=== PATIENT | female | born 1985 | race Caucasian/White ===

== ENCOUNTER 2021-05-28 13:04 | Outpatient (CLI) | payer MEDICAID, SELFPAY ==
[2021-05-28 10:52] LABS: Amphetamine Urine VISTA NEGATIVE (<1000 ng/mL); Barbiturate Urine VISTA NEGATIVE (< 200 ng/mL); Benzodiazepine Urine VISTA NEGATIVE (< 200 ng/mL); Cocaine Urine VISTA NEGATIVE (< 300 ng/mL); Ecstacy Urine VISTA NEGATIVE (< 500 ng/mL); Methadone Urine VISTA NEGATIVE (< 300 ng/mL); PCP Urine VISTA NEGATIVE (< 25 ng/mL); THC Urine VISTA NEGATIVE (< 50 ng/mL); Vista UDS pH Range 5
[2021-05-30 21:07] LABS: Chlamydia By Nucleic Acid AMP Negative (Negative)
[2021-05-30 21:29] LABS: Gonococcus By Nucleic Acid AMP Negative (Negative)
[2021-06-04 17:20] LABS: HPV Reflexed? NOT INDICATED
== END 2021-05-28 23:59 | disposition home or self-care (01) ==
LOC: LABSPEC 13:05
PROVIDERS: Referring Provider Obstetrics & Gynecology; Visit Provider Obstetrics & Gynecology
DX: Z34.80 Encounter for supervision of other normal pregnancy, unspecified trimester (principal); Z12.4 Encounter for screening for malignant neoplasm of cervix
CPT/HCPCS: 80307; 87086; 87088; 87491; 87591; 88175; G0145

== ENCOUNTER 2021-06-17 15:26 | Outpatient (CLI) | payer MEDICAID, SELFPAY ==
[2021-06-17 15:47] LABS: Absolute Lymphocyte Count 1.89 X10^3/uL (0.83-4.51); Absolute Neutrophil Count 9.1 X10^3/uL (2.0-7.7); Basophil# 0.02 X10^3/uL; Basophil% 0.2 % (0-1); Eosinophil# 0.21 X10^3/uL; Eosinophils% 1.8 % (0-5); Hematocrit 38.6 % (37-47); Hemoglobin 13.1 g/dL (12.0-15.0); Lymphocyte # 1.89 X10^3/ul (0.83-4.51); Lymphocyte % 15.8 % (19-41); Mean Corp Hgb Conc 33.9 g/dL (32-36); Mean Corpuscular Hgb 31.4 pg (27.0-32.0); Mean Corpuscular Volume 92.6 fL (81-99); Mean Platelet Vol. 9.4 fl (6.2-12.0); Monocyte# 0.68 X10^3/uL; Monocyte% 5.7 % (0-10); NRBC Flagged by Analyzer 0 % (0-5); Neutrophil # 9.14 X10^3/uL (2.7-7.7); Neutrophil % 76.2 % (47-70); Platelet Count 278 K/mm3 (150-450); RBC Distribution Width CV 12.7 % (11.6-14.6); RBC Distribution Width SD 43.5 fl (35.1-43.9); Red Blood Count 4.17 M/mm3 (4.2-5.4)
[2021-06-17 16:40] LABS: NATERA MAILED SPECIMEN
[2021-06-18 09:34] LABS: HIV - WCH Non-Reactive (Nonreactive); Hepatitis B Surface Antigen Non-Reactive (Nonreactive); Hepatitis C Antibody Non-Reactive (Nonreactive); Rubella IgG Reactive (Nonreactive); Syphilis Antibodies Non-reactive
== END 2021-06-17 23:59 | disposition home or self-care (01) ==
LOC: PAVLAB 15:28
PROVIDERS: Referring Provider Obstetrics & Gynecology; Visit Provider Obstetrics & Gynecology
DX: O09.521 Supervision of elderly multigravida, first trimester (principal); Z3A.00 Weeks of gestation of pregnancy not specified
CPT/HCPCS: 36415; 85025; 86703; 86762; 86780; 86803; 86850; 86900; 86901; 87340

== ENCOUNTER → 2021-10-14 | Outpatient (CLI) | payer MEDICAID, SELFPAY ==
[2021-10-14 12:56] LABS: Basophil# 0.03 X10^3/uL; Basophil% 0.3 % (0-1); Eosinophil# 0.12 X10^3/uL; Eosinophils% 1.1 % (0-5); Hematocrit 35.3 % (37-47); Hemoglobin 11.5 g/dL (12.0-15.0); Lymphocyte % 12.5 % (19-41); Mean Corp Hgb Conc 32.6 g/dL (32-36); Mean Corpuscular Hgb 31.3 pg (27.0-32.0); Mean Corpuscular Volume 95.9 fL (81-99); Mean Platelet Vol. 9.6 fl (6.2-12.0); Monocyte# 0.58 X10^3/uL; Monocyte% 5.2 % (0-10); NRBC Flagged by Analyzer 0 % (0-5); Neutrophil # 8.95 X10^3/uL (2.7-7.7); Neutrophil % 79.7 % (47-70); Platelet Count 223 K/mm3 (150-450); RBC Distribution Width CV 13.2 % (11.6-14.6); RBC Distribution Width SD 46.8 fl (35.1-43.9); Red Blood Count 3.68 M/mm3 (4.2-5.4); White Blood Count 11.2 K/mm3 (4.4-11.0)
[2021-10-14 13:13] LABS: Glucose Challenge Gest 1H 50g 148 mg/dL (70-140)
== END | disposition home or self-care (01) ==
LOC: LAB 12:27
PROVIDERS: Referring Provider Obstetrics & Gynecology; Visit Provider Obstetrics & Gynecology
DX: O09.90 Supervision of high risk pregnancy, unspecified, unspecified trimester (principal); Z3A.00 Weeks of gestation of pregnancy not specified
CPT/HCPCS: 36415; 82950; 85025

== ENCOUNTER → 2021-10-29 | Outpatient (CLI) | payer MEDICAID, SELFPAY ==
[2021-10-29 08:22] LABS: Glucose GTT-Gestation. Fasting 92 mg/dL (<105)
[2021-10-29 08:58] LABS: Glucose GTT-Gestational 1 Hr 208 mg/dL (<190)
[2021-10-29 10:02] LABS: Glucose GTT-Gestational 2 Hr 171 mg/dL (<165)
[2021-10-29 11:26] LABS: Glucose GTT-Gestational 3 Hr 99 L (<145)
== END | disposition home or self-care (01) ==
LOC: LAB 07:21
PROVIDERS: Visit Provider Nurse Practitioner Women's Health
DX: Z13.1 Encounter for screening for diabetes mellitus (principal)
CPT/HCPCS: 36415; 82951; 82952

== ENCOUNTER 2021-11-12 09:35 | Outpatient (RCR) | payer MEDICAID, SELFPAY | END 2021-11-12 23:59 | LOC: DC 09:35 | PROVIDERS: Referring Provider Nurse Practitioner Women's Health; Visit Provider Nurse Practitioner Women's Health | DX: O24.419 Gestational diabetes mellitus in pregnancy, unspecified control (principal); Z3A.00 Weeks of gestation of pregnancy not specified | CPT/HCPCS: 97802 ==

== ENCOUNTER 2021-12-04 14:30 | Outpatient (RCR) | payer MEDICAID, SELFPAY | END 2021-12-12 23:59 | LOC: DC 14:30 | PROVIDERS: Referring Provider Nurse Practitioner Women's Health; Visit Provider Nurse Practitioner Women's Health | DX: O24.419 Gestational diabetes mellitus in pregnancy, unspecified control (principal); Z3A.00 Weeks of gestation of pregnancy not specified | CPT/HCPCS: 97803 ==

== ENCOUNTER → 2021-12-08 | Outpatient (CLI) | payer MEDICAID, SELFPAY ==
--- NOTE | 2021-12-08 10:03 | US_ITS ---
STUDY: SECOND AND THIRD TRIMESTER OBSTETRICAL ULTRASOUND - LIMITED REASON FOR EXAM: Female, 36 years old. growth PRIOR ULTRASOUND: Prior comparison studies are not available for review at this time. TECHNIQUE: Transabdominal TECHNICAL QUALITY: Adequate. FINDINGS: There is a single intrauterine fetus. The fetus is in a cephalic presentation. There is demonstrated cardiac activity with a heart rate of 147 bpm. There is a normal amniotic fluid volume. The largest amniotic fluid pocket measures 5.2 cm. The amniotic fluid index (KERRI) is 13.1 cm. The placenta is fundal in location. There are Grade 2 placental changes. The cervix is obscured by overlying bowel gas and cannot be identified. . BIOMETRY: BPD: 93 mm: 37 weeks, 5 days HC: 335 mm: 38 weeks, 3 days AC: 326 mm: 36 weeks, 4 days FL: 70 mm: 35 weeks, 5 days CI: 80 FL/AC: 21 FL/BPD: 75 HC/AC: 1.03 age by current US: 37 weeks, 1 days. LELA by current US: 12.28.21. Estimated weight: 2996 grams, +/- 449 grams, 66 %. Age by LMP: 36 weeks, 1 days. LELA by LMP: 01.04.22. US/OB Limited With Biometrics IMPRESSION: There is a single live intrauterine with a heart rate of 147 bpm. age by current US: 37 weeks, 1 days. LELA by current US: 12.28.21. Estimated weight: 2996 grams, +/- 449 grams, 66 %. Electronically Signed: Jerry Del Valle MD at 17:09 EDT ,
== END | disposition home or self-care (01) ==
LOC: US 10:02
PROVIDERS: Referring Provider Obstetrics & Gynecology; Visit Provider Obstetrics & Gynecology
DX: O09.523 Supervision of elderly multigravida, third trimester (principal); Z3A.37 37 weeks gestation of pregnancy
CPT/HCPCS: 76816

== ENCOUNTER → 2021-12-11 | Outpatient (CLI) | payer MEDICAID, SELFPAY | END | disposition home or self-care (01) | LOC: LABSPEC 13:38 | PROVIDERS: Referring Provider Obstetrics & Gynecology; Visit Provider Obstetrics & Gynecology | DX: Z36.85 Encounter for antenatal screening for Streptococcus B (principal) | CPT/HCPCS: 87081 ==

== ENCOUNTER 2021-12-29 09:15 | Inpatient (IN) | payer MEDICAID, SELFPAY ==
[2021-12-29] VITALS (53 sets, daily range): BP systolic 102–147; BP diastolic 55–93; PULSE 69–99; TEMP 36.1–37.2; O2SAT 84–100; BMI 31.0
[2021-12-29] MEDS: Lactated Ringers 1,000 ML 50 ML IV (09:38)
[2021-12-29 09:56] LABS: Absolute Lymphocyte Count 0.81 X10^3/uL (0.83-4.51); Absolute Neutrophil Count 8.6 X10^3/uL (2.0-7.7); Basophil# 0.02 X10^3/uL; Basophil% 0.2 % (0-1); Eosinophil# 0.04 X10^3/uL; Eosinophils% 0.4 % (0-5); Hematocrit 37.7 % (37-47); Hemoglobin 12.2 g/dL (12.0-15.0); Lymphocyte # 0.81 X10^3/ul (0.83-4.51); Lymphocyte % 8.1 % (19-41); Mean Corp Hgb Conc 32.4 g/dL (32-36); Mean Corpuscular Volume 92.6 fL (81-99); Mean Platelet Vol. 10.6 fl (6.2-12.0); NRBC Flagged by Analyzer 0 % (0-5); Neutrophil # 8.62 X10^3/uL (2.7-7.7); Neutrophil % 85.6 % (47-70); Platelet Count 193 K/mm3 (150-450); RBC Distribution Width SD 51.1 fl (35.1-43.9); Red Blood Count 4.07 M/mm3 (4.2-5.4); White Blood Count 10.1 K/mm3 (4.4-11.0)
[2021-12-29] MEDS: Oxytocin 15 Units/NS 250ml 15 UNITS/250 ML IV.SOLN 2 UNITS IV (10:13)
[2021-12-29 11:05] LABS: Bedside Glucose 98 mg/dL (74-106)
[2021-12-29 12:06] LABS: Bedside Glucose 92 mg/dL (74-106)
[2021-12-29] MEDS: LACTATED RINGERS 500 ML 999 ML IV (13:17)
[2021-12-29] MEDS: fentaNYL-bupivacaine (epidural) 100 ML BAG EPIDURAL (13:55)
[2021-12-29 14:51] LABS: Bedside Glucose 106 mg/dL (74-106)
[2021-12-29] MEDS: Lactated Ringers 1,000 ML 200 ML IV (15:09)
--- NOTE | 2021-12-29 15:14 | OP.PCM_ITS ---
Assessment & Plan (1) Gestational diabetes: COMMENT: diet controlled. weekly NSTs until delivery due to AMA and GDM. (2) Vaginal delivery: COMMENT: SM 39 IOL GDMA1 ama girl [place] Maternal Data Information LELA Calculator Estimated Delivery Date Method Current WG Current Estimate 01/04/22 LMP (Certain) 39w 2d Other Estimates 01/07/22 Ultrasound #1 38w 6d Vaginal Delivery Operative Information Date of Procedure: 12/29/21 Pre-Operative Diagnosis: IOL Gdma1 ama Post-Operative Diagnosis: same Surgery / Procedure Performed: Spontaneous Vaginal Delivery Type of Anesthesia: Epidural Special Medications: none Estimated Blood Loss: 200 Fluids Replaced: crystalloid Findings Description of Procedure: Patient began pushing and delivered the head in the JANIA presentation. The head was delivered atraumatically and a loose nuchal cord ?1 was identified and the delivered through without complication. The anterior and posterior shoulders delivered without complication followed by the rest of the and the was placed on the maternal abdomen. Delayed cord clamping was employed for approximately 60 seconds. Cord was clamped and cut and gentle traction was applied to the cord and the placenta delivered spontaneously immediately following it was noted to be intact with three-vessel cord. The perineum and vagina were inspected and noted to have no laceration. EBL was 200 cc. Patient and tolerated delivery well. Presentation: JANIA Amniotic Membrane Rupture Type: Artificial Amniotic Fluid Description: Clear Placental Delivery Description: Spontaneous Placenta Disposition: [facility] Cord Vessel Description: 3 Vessels Cord Entanglement: Around neck x 1, loose Infant A Gender: Female Delayed Cord Clamping: Yes Post Vaginal Delivery Medications Given After Delivery: IV Pitocin Episiotomy Description: None Laceration: None Complication Complications: None Procedures Urinary/Genital [id number]: [id number] Vaginal Delivery+PP Care([facility])
[2021-12-29 17:40] LABS: Bedside Glucose 91 mg/dL (74-106)
[2021-12-29 17:40] LABS: Bedside Glucose 108 mg/dL (74-106)
[2021-12-29 18:36] LABS: Bedside Glucose 94 mg/dL (74-106)
[2021-12-30 00:45] VITALS: BP 109/63; PULSE 84; RESP 18; TEMP 36.2
[2021-12-30] MEDS: Naproxen 500 MG Tablet PO (00:48)
[2021-12-30] MEDS: Senna/Docusate Sodium 1 Tablet PO (00:48)
[2021-12-30 05:51] VITALS: BP 99/57; PULSE 60; RESP 14; TEMP 36.1
[2021-12-30 06:45] LABS: Bedside Glucose 100 mg/dL (74-106)
--- NOTE | 2021-12-30 07:49 | HP.PCM.OB_ITS ---
HPI - General General Date of Admission: 12/29/21 HPI Narrative GARRETT RUSH, is a 36 F who presents for IOL sec AMA and [id number] Maternal Data Information LELA Calculator Estimated Delivery Date Method Current WG Current Estimate 01/04/22 LMP (Certain) 39w 2d Other Estimates 01/07/22 Ultrasound #1 38w 6d PFSH PFSH Medical History (Updated 12/30/21 @ 07:[address] Patricia Camarillo MD) History of PCOS Infertility macrosomia Home Medications prenat.vits,khang,[id number] 1 tab PO DAILY 05/27/21 [History Last Taken 12/29/21] blood sugar diagnostic (True Metrix Glucose Test Strip) #100 ea 10/29/21 [Rx Last Taken Unknown] blood-glucose meter (True Metrix Air Glucose Meter) #1 ea 10/29/21 [Rx Last Taken Unknown] Allergy/AdvReac Type Severity Reaction Status Date / Time No Known Allergies Allergy Verified 12/29/21 09:37 Social History adopted: No household members: spouse and children number of children: 1 current occupational status: unemployed current occupation: [employer]; 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 Date Name GA/Weeks Outcome Route Bth Weight Gen Labor Lgth Anes thes ia Del Locatn Provider FOB Unknown Mar 2020 spontaneous 08/07/16 Esther live - full term 10#5oz Female 8 hr non e Zina Hasmukh Delivery Date: Last Updated by: Brianna Salgado GIS ANALYST, GIS ANALYST-C no intervention Delivery Date: 08/07/16 Last Updated by: Brianna Salgado NP, GIS ANALYST-C IOL, nonreactive NST. Visit Details Expected Delivery Route/Plan plan delivery by 39-40 Labor Preferences- CB/BF classes: no labor support person: Hasmukh labor intervention preferences: [] pain management options preferred: open to epidural cut cord/dad catch: yes : yes PP control planned: discussed discussed possible routes of delivery and associated risks: [] special requests: [] Plans Covid status: unvaccinated Flu vaccine: unvaccinated Tdap vaccine: declines Rhogam: na LARC form signed: yes movement and labor precautions reviewed. Problem list reviewed and updated with the most current plan of care details and appropriate orders placed. Relevant counseling for the gestational age provided. Continue routine care and follow up unless otherwise noted in visit notes/problem list details OB Flowsheet Initial Weight: Not Recorded Date -?-?-?-?-?-?-?-?-?-?-?-?- EGA Weight BP Urine Prot -?-?-?-?-?-?-?-?-?-?-?-?- Glucose FHR FuHt Pres Dilation -?-?-?-?-?-?-?-?-?-?-?-?- Effaced St Visit Note 05/28/21 -?-?-?-?-?--?-?-?-?-?-?-?- 8w 3d 200 lb 4 oz 128/88 -?-?-?-?-?-?-?-?-?-?-?-?- 147 -?-?-?-?-?-?-?-?-?-?-?-?- JV- CRL consiste nt with LMP. pt had a miscarrage at 7-8 weeks last year. return in 1-2 weeks for reassurance of heart tones. 06/17/21 -?-?-?-?-?-?-?-?-?-?-?-?- 11w 2d 204 lb 2 oz 120/82 Nega tive -?-?-?-?-?--?-?-?-?-?-?-?- Negative -?-?-?-?-?-?-?-?-?-?-?-?- JV- pt declined heart tone exam today. She was counseled on NIPT testing and wants to proceed. wants to wait until is here to do another scan of the heart tones. 06/30/21 -?-?-?-?-?-?-?-?-?-?-?-?- 13w 1d 202 lb 126/80 Negative -?-?-?-?-?-?-?-?-?-?-?-?- Negative 165 -?-?-?-?-?-?-?-?-?-?-?-?- SM- some crampin g no vb 07/30/21 -?-?-?-?-?-?-?-?-?-?-?-?- 17w 3d 206 lb 108/60 Negative -?-?-?--?-?-?-?-?-?-?-?-?- Negative 162 -?-?-?-?-?-?-?-?-?-?-?-?- MH-No VB. ?flutt ers. Order sent for anatomy US. LR NIPT 08/25/21 -?-?-?-?-?-?-?-?-?-?-?-?- 21w 1d 211 lb 120/80 Negative -?-?-?-?-?-?-?-?-?-?-?-?- Negative 150 -?-?-?-?-?-?-?-?-?-?-?-?- SM- no vb lof go od fm no regular ctx needs fu views heart and spine will gt at hospital due to insurance coverage 09/22/21 -?-?-?-?-?-?-?-?-?-?-?-?- 25w 1d 220 lb 8 oz 108/71 Nega tive -?-?-?-?-?-?-?-?-?-?-?-?- Negative 145 25 -?-?-?-?-?-?-?-?-?-?-?-?- SM- no vb lof go od fm no regular ctx 10/14/21 -?-?-?-?-?-?-?-?-?-?-?-?- 28w 2d 224 lb 8 oz 126/62 Nega tive -?-?-?-?-?-?-?-?-?-?-?-?- Negative 153 28 -?-?-?-?-?-?-?-?-?-?-?-?- MH-No VB, LOF. G ood FM. 28 wk labs-needs 3 hr GTT. Ordered 36 wk growth US and will check spine at that time. Declines tdap. Larc. 10/27/21 -?-?-?-?-?-?-?-?-?-?-?-?- 30w 1d 227 lb 120/80 Negative -?-?-?-?-?-?-?-?-?-?-?-?- Negative 145 30 -?-?-?-?-?-?-?-?-?-?-?-?- SM- no vb lof go od fm n oregular ctx 3 hr scheduled declined tdap 11/13/21 -?-?-?-?-?-?-?-?-?-?-?-?- 32w 4d 226 lb 2 oz 100/62 Nega tive -?-?-?-?-?-?-?-?-?-?-?-?- Negative 144 32 -?-?-?-?-?-?-?-?-?-?-?-?- JV- no lof, vagi nal bleeding, or dec fm. fasting gluocse levels are 80's-90's. following with Dr. Tim. diet controlled DM for now. 11/28/21 -?-?-?-?-?-?-?-?-?-?-?-?- 34w 5d 224 lb 97/61 Negative -?-?-?-?-?-?-?-?-?--?-?-?- Negative 150 34 Cephalic -?-?-?-?-?-?-?-?-?-?-?-?- JV- still diet c ontrolled, no complaints. 36 week growth ordered. 12/11/21 -?-?-?--?-?-?-?-?-?-?-?-?- 36w 4d 224 lb 112/72 Negative -?-?-?-?-?-?-?-?-?-?-?-?- Negative 165 37 Cephalic -?-?-?-?-?-?-?-?-?-?-?-?- SM- no vb lof go od fm no regualr ctx discussed increased testing. BS controlled with diet. reviewed growth US 12/19/21 -?-?-?-?-?-?-?-?-?-?-?-?- 37w 5d 225 lb 8 oz 107/71 Nega tive -?-?-?-?-?-?-?-?-?-?-?-?- Negative 148 38 Cephalic 4 -?-?-?-?-?-?-?-?-?-?-?-?- 80 -2 JV-membran es stripped glucose normal. NST today for AMA and diet contr olled dm 12/25/21 -?-?-?-?-?-?-?-?-?-?-?-?- 38w 4d 227 lb 6 oz 122/70 Nega tive -?-?-?-?-?-?-?-?-?-?-?-?- Negative 150 39 Cephalic 4 5 -?-?-?-?-?-?-?-?-?-?-?-?- 80 -1 MH-reactiv e NST. No reg CTX, VB, LOF. Membranes stripped. Consult SM:IOL 12/2912/29/21 -?-?-?-?-?-?-?-?-?-?-?-?- 39w 1d 229 lb 147/83 123/71 117/73 118/61 121/68 119/69 111/58 144/93 102/55 112/58 112/64 105/56 102/56 104/55 107/60 105/60 135/72 128/68 129/60 136/79 133/58 129/62 117/57 116/59 117/68 -?-?-?-?-?-?-?-?-?-?-?-?- -?-?-?-?-?-?-?-?-?-?-?-?- NST FHR Rate Baby A Baseline: 130 Variability:: Moderate Accelerations:: 15 x 15 Decelerations:: None NST Reactive:: Yes FHR Category:: Category I Uterine Activity:: irregular ROS Constitutional Constitutional: Reports systems reviewed and no addt'l complaints, except as documented Eyes Eyes: Denies change in vision ENT HEENT: Reports systems reviewed and no addt'l complaints, except as documented; Denies headache(s) Cardiovascular Cardiovascular: Reports systems reviewed and no addt'l complaints, except as documented; Denies chest pain or dyspnea Respiratory/Chest Respiratory/Chest: Reports systems reviewed and no addt'l complaints, except as documented Gastrointestinal Gastrointestinal: Reports systems reviewed and no addt'l complaints, except as documented; Denies abdominal pain Genitourinary Genitourinary: Reports systems reviewed and no addt'l complaints, except as documented, contractions Details: present (irregular) and movement Details: present; Denies dysuria or genital lesions Musculoskeletal Musculoskeletal: Reports systems reviewed and no addt'l complaints, except as documented Neurologic Neurologic: Reports systems reviewed and no addt'l complaints, except as documented Endocrine Endocrinology: Reports systems reviewed and no addt'l complaints, except as documented Vital Signs Vital Signs Vital Signs: 12/29/21 09:31 12/29/21 09:31 12/29/21 09:31 Temperature Temperature Source Tympanic Pulse Rate 85 Respiratory Rate Blood Pressure 147/83 H Blood Pressure [BP] Blood Pressure Mean [BP] BP Systolic 147 BP Diastolic 83 Blood Pressure Source [BP] Blood Pressure Position [BP] Blood Pressure Location [BP] Pulse Ox Oxygen Delivery Method 12/29/21 09:31 12/29/21 10:17 12/29/21 10:17 Temperature 97.1 F L Temperature Source Pulse Rate 83 Respiratory Rate Blood Pressure 123/71 H Blood Pressure [BP] Blood Pressure Mean [BP] BP Systolic 123 BP Diastolic 71 Blood Pressure Source [BP] Blood Pressure Position [BP] Blood Pressure Location [BP] Pulse Ox Oxygen Delivery Method 12/29/21 11:00 12/29/21 11:00 12/29/21 13:00 Temperature Temperature Source Pulse Rate 86 Respiratory Rate Blood Pressure 117/73 118/61 Blood Pressure [BP] Blood Pressure Mean [BP] BP Systolic 117 118 BP Diastolic 73 61 Blood Pressure Source [BP] Blood Pressure Position [BP] Blood Pressure Location [BP] Pulse Ox Oxygen Delivery Method 12/29/21 13:00 12/29/21 13:00 12/29/21 13:00 Temperature 97.0 F L Temperature Source Tympanic Pulse Rate 70 Respiratory Rate Blood Pressure Blood Pressure [BP] Blood Pressure Mean [BP] BP Systolic BP Diastolic Blood Pressure Source [BP] Blood Pressure Position [BP] Blood Pressure Location [BP] Pulse Ox Oxygen Delivery Method 12/29/21 13:49 12/29/21 13:49 12/29/21 13:48 Temperature Temperature Source Pulse Rate 74 Respiratory Rate Blood Pressure 121/68 H Blood Pressure [BP] Blood Pressure Mean [BP] BP Systolic 121 BP Diastolic 68 Blood Pressure Source [BP] Blood Pressure Position [BP] Blood Pressure Location [BP] Pulse Ox 100 Oxygen Delivery Method 12/29/21 13:53 12/29/21 13:53 12/29/21 13:56 Temperature Temperature Source Pulse Rate 76 Respiratory Rate Blood Pressure 119/69 111/58 L Blood Pressure [BP] Blood Pressure Mean [BP] BP Systolic 119 111 BP Diastolic 69 58 Blood Pressure Source [BP] Blood Pressure Position [BP] Blood Pressure Location [BP] Pulse Ox Oxygen Delivery Method 12/29/21 13:56 12/29/21 14:00 12/29/21 14:00 Temperature Temperature Source Pulse Rate 73 88 Respiratory Rate Blood Pressure 144/93 H Blood Pressure [BP] Blood Pressure Mean [BP] BP Systolic 144 BP Diastolic 93 Blood Pressure Source [BP] Blood Pressure Position [BP] Blood Pressure Location [BP] Pulse Ox Oxygen Delivery Method 12/29/21 14:03 12/29/21 14:03 12/29/21 14:05 Temperature Temperature Source Pulse Rate 80 Respiratory Rate Blood Pressure 102/55 L Blood Pressure [BP] Blood Pressure Mean [BP] BP Systolic 102 BP Diastolic 55 Blood Pressure Source [BP] Blood Pressure Position [BP] Blood Pressure Location [BP] Pulse Ox 99 Oxygen Delivery Method 12/29/21 14:05 12/29/21 14:06 12/29/21 14:06 Temperature Temperature Source Pulse Rate 77 72 Respiratory Rate Blood Pressure Blood Pressure [BP] Blood Pressure Mean [BP] BP Systolic BP Diastolic Blood Pressure Source [BP] Blood Pressure Position [BP] Blood Pressure Location [BP] Pulse Ox 84 Oxygen Delivery Method 12/29/21 14:08 12/29/21 14:08 12/29/21 14:08 Temperature Temperature Source Pulse Rate 76 Respiratory Rate Blood Pressure 112/58 L Blood Pressure [BP] Blood Pressure Mean [BP] BP Systolic 112 BP Diastolic 58 Blood Pressure Source [BP] Blood Pressure Position [BP] Blood Pressure Location [BP] Pulse Ox 100 Oxygen Delivery Method 12/29/21 14:13 12/29/21 14:13 12/29/21 14:13 Temperature Temperature Source Pulse Rate 79 Respiratory Rate Blood Pressure 112/64 Blood Pressure [BP] Blood Pressure Mean [BP] BP Systolic 112 BP Diastolic 64 Blood Pressure Source [BP] Blood Pressure Position [BP] Blood Pressure Location [BP] Pulse Ox 98 Oxygen Delivery Method 12/29/21 14:18 12/29/21 14:18 12/29/21 14:18 Temperature Temperature Source Pulse Rate 77 Respiratory Rate Blood Pressure 105/56 L Blood Pressure [BP] Blood Pressure Mean [BP] BP Systolic 105 BP Diastolic 56 Blood Pressure Source [BP] Blood Pressure Position [BP] Blood Pressure Location [BP] Pulse Ox 100 Oxygen Delivery Method 12/29/21 14:23 12/29/21 14:23 12/29/21 14:24 Temperature Temperature Source Pulse Rate 84 Respiratory Rate Blood Pressure 102/56 L Blood Pressure [BP] Blood Pressure Mean [BP] BP Systolic 102 BP Diastolic 56 Blood Pressure Source [BP] Blood Pressure Position [BP] Blood Pressure Location [BP] Pulse Ox 96 Oxygen Delivery Method 12/29/21 14:24 12/29/21 14:22 12/29/21 14:56 Temperature Temperature Source Pulse Rate 82 Respiratory Rate Blood Pressure 104/55 L Blood Pressure [BP] Blood Pressure Mean [BP] BP Systolic 104 BP Diastolic 55 Blood Pressure Source [BP] Blood Pressure Position [BP] Blood Pressure Location [BP] Pulse Ox 99 Oxygen Delivery Method 12/29/21 14:56 12/29/21 16:07 12/29/21 16:07 Temperature Temperature Source Pulse Rate 85 73 Respiratory Rate Blood Pressure 107/60 Blood Pressure [BP] Blood Pressure Mean [BP] BP Systolic 107 BP Diastolic 60 Blood Pressure Source [BP] Blood Pressure Position [BP] Blood Pressure Location [BP] Pulse Ox Oxygen Delivery Method 12/29/21 16:07 12/29/21 16:08 12/29/21 16:08 Temperature Temperature Source Temporal Pulse Rate 78 Respiratory Rate Blood Pressure Blood Pressure [BP] Blood Pressure Mean [BP] BP Systolic BP Diastolic Blood Pressure Source [BP] Blood Pressure Position [BP] Blood Pressure Location [BP] Pulse Ox 100 Oxygen Delivery Method 12/29/21 16:08 12/29/21 16:08 12/29/21 16:33 Temperature 98.9 F Temperature Source Pulse Rate 76 Respiratory Rate Blood Pressure Blood Pressure [BP] Blood Pressure Mean [BP] BP Systolic BP Diastolic Blood Pressure Source [BP] Blood Pressure Position [BP] Blood Pressure Location [BP] Pulse Ox 100 Oxygen Delivery Method 12/29/21 16:33 12/29/21 17:01 12/29/21 17:01 Temperature Temperature Source Pulse Rate 78 Respiratory Rate Blood Pressure 105/60 Blood Pressure [BP] Blood Pressure Mean [BP] BP Systolic 105 BP Diastolic 60 Blood Pressure Source [BP] Blood Pressure Position [BP] Blood Pressure Location [BP] Pulse Ox 99 Oxygen Delivery Method 12/29/21 17:01 12/29/21 17:02 12/29/21 17:02 Temperature Temperature Source Temporal Pulse Rate 75 Respiratory Rate Blood Pressure Blood Pressure [BP] Blood Pressure Mean [BP] BP Systolic BP Diastolic Blood Pressure Source [BP] Blood Pressure Position [BP] Blood Pressure Location [BP] Pulse Ox 98 Oxygen Delivery Method 12/29/21 17:02 12/29/21 17:02 12/29/21 17:47 Temperature 99.0 F Temperature Source Pulse Rate Respiratory Rate Blood Pressure 135/72 H Blood Pressure [BP] Blood Pressure Mean [BP] BP Systolic 135 BP Diastolic 72 Blood Pressure Source [BP] Blood Pressure Position [BP] Blood Pressure Location [BP] Pulse Ox 99 Oxygen Delivery Method 12/29/21 17:47 12/29/21 17:48 12/29/21 17:48 Temperature Temperature Source Pulse Rate 92 89 Respiratory Rate Blood Pressure Blood Pressure [BP] Blood Pressure Mean [BP] BP Systolic BP Diastolic Blood Pressure Source [BP] Blood Pressure Position [BP] Blood Pressure Location [BP] Pulse Ox 98 Oxygen Delivery Method 12/29/21 17:50 12/29/21 17:50 12/29/21 17:50 Temperature Temperature Source Temporal Pulse Rate 82 Respiratory Rate Blood Pressure Blood Pressure [BP] Blood Pressure Mean [BP] BP Systolic BP Diastolic Blood Pressure Source [BP] Blood Pressure Position [BP] Blood Pressure Location [BP] Pulse Ox 97 Oxygen Delivery Method 12/29/21 17:50 12/29/21 17:53 12/29/21 17:53 Temperature 99.0 F Temperature Source Pulse Rate 86 Respiratory Rate Blood Pressure Blood Pressure [BP] Blood Pressure Mean [BP] BP Systolic BP Diastolic Blood Pressure Source [BP] Blood Pressure Position [BP] Blood Pressure Location [BP] Pulse Ox 98 Oxygen Delivery Method 12/29/21 17:58 12/29/21 17:58 12/29/21 18:02 Temperature Temperature Source Pulse Rate 83 Respiratory Rate Blood Pressure 128/68 H Blood Pressure [BP] Blood Pressure Mean [BP] BP Systolic 128 BP Diastolic 68 Blood Pressure Source [BP] Blood Pressure Position [BP] Blood Pressure Location [BP] Pulse Ox 97 Oxygen Delivery Method 12/29/21 18:02 12/29/21 18:03 12/29/21 18:03 Temperature Temperature Source Pulse Rate 76 75 Respiratory Rate Blood Pressure Blood Pressure [BP] Blood Pressure Mean [BP] BP Systolic BP Diastolic Blood Pressure Source [BP] Blood Pressure Position [BP] Blood Pressure Location [BP] Pulse Ox 98 Oxygen Delivery Method 12/29/21 18:08 12/29/21 18:08 12/29/21 18:13 Temperature Temperature Source Pulse Rate 74 69 Respiratory Rate Blood Pressure Blood Pressure [BP] Blood Pressure Mean [BP] BP Systolic BP Diastolic Blood Pressure Source [BP] Blood Pressure Position [BP] Blood Pressure Location [BP] Pulse Ox 97 Oxygen Delivery Method 12/29/21 18:13 12/29/21 18:17 12/29/21 18:17 Temperature Temperature Source Pulse Rate 85 Respiratory Rate Blood Pressure 129/60 H Blood Pressure [BP] Blood Pressure Mean [BP] BP Systolic 129 BP Diastolic 60 Blood Pressure Source [BP] Blood Pressure Position [BP] Blood Pressure Location [BP] Pulse Ox 97 Oxygen Delivery Method 12/29/21 18:18 12/29/21 18:18 12/29/21 18:23 Temperature Temperature Source Pulse Rate 78 75 Respiratory Rate Blood Pressure Blood Pressure [BP] Blood Pressure Mean [BP] BP Systolic BP Diastolic Blood Pressure Source [BP] Blood Pressure Position [BP] Blood Pressure Location [BP] Pulse Ox 98 Oxygen Delivery Method 12/29/21 18:23 12/29/21 18:28 12/29/21 18:28 Temperature Temperature Source Pulse Rate 77 Respiratory Rate Blood Pressure Blood Pressure [BP] Blood Pressure Mean [BP] BP Systolic BP Diastolic Blood Pressure Source [BP] Blood Pressure Position [BP] Blood Pressure Location [BP] Pulse Ox 98 98 Oxygen Delivery Method 12/29/21 18:33 12/29/21 18:33 12/29/21 18:38 Temperature Temperature Source Pulse Rate 75 83 Respiratory Rate Blood Pressure Blood Pressure [BP] Blood Pressure Mean [BP] BP Systolic BP Diastolic Blood Pressure Source [BP] Blood Pressure Position [BP] Blood Pressure Location [BP] Pulse Ox 98 Oxygen Delivery Method 12/29/21 18:38 12/29/21 18:43 12/29/21 18:43 Temperature Temperature Source Pulse Rate 81 Respiratory Rate Blood Pressure Blood Pressure [BP] Blood Pressure Mean [BP] BP Systolic BP Diastolic Blood Pressure Source [BP] Blood Pressure Position [BP] Blood Pressure Location [BP] Pulse Ox 98 98 Oxygen Delivery Method 12/29/21 18:46 12/29/21 18:46 12/29/21 18:48 Temperature Temperature Source Pulse Rate 81 79 Respiratory Rate Blood Pressure 136/79 H Blood Pressure [BP] Blood Pressure Mean [BP] BP Systolic 136 BP Diastolic 79 Blood Pressure Source [BP] Blood Pressure Position [BP] Blood Pressure Location [BP] Pulse Ox Oxygen Delivery Method 12/29/21 18:48 12/29/21 18:53 12/29/21 18:53 Temperature Temperature Source Pulse Rate 87 Respiratory Rate Blood Pressure Blood Pressure [BP] Blood Pressure Mean [BP] BP Systolic BP Diastolic Blood Pressure Source [BP] Blood Pressure Position [BP] Blood Pressure Location [BP] Pulse Ox 98 99 Oxygen Delivery Method 12/29/21 18:58 12/29/21 18:58 12/29/21 19:02 Temperature Temperature Source Pulse Rate 99 Respiratory Rate Blood Pressure 133/58 H Blood Pressure [BP] Blood Pressure Mean [BP] BP Systolic 133 BP Diastolic 58 Blood Pressure Source [BP] Blood Pressure Position [BP] Blood Pressure Location [BP] Pulse Ox 98 Oxygen Delivery Method 12/29/21 19:02 12/29/21 19:03 12/29/21 19:03 Temperature Temperature Source Pulse Rate 83 97 Respiratory Rate Blood Pressure Blood Pressure [BP] Blood Pressure Mean [BP] BP Systolic BP Diastolic Blood Pressure Source [BP] Blood Pressure Position [BP] Blood Pressure Location [BP] Pulse Ox 99 Oxygen Delivery Method 12/29/21 19:08 12/29/21 19:08 12/29/21 19:13 Temperature Temperature Source Pulse Rate 92 82 Respiratory Rate Blood Pressure Blood Pressure [BP] Blood Pressure Mean [BP] BP Systolic BP Diastolic Blood Pressure Source [BP] Blood Pressure Position [BP] Blood Pressure Location [BP] Pulse Ox 98 Oxygen Delivery Method 12/29/21 19:13 12/29/21 19:17 12/29/21 19:17 Temperature Temperature Source Pulse Rate 85 Respiratory Rate Blood Pressure 129/62 H Blood Pressure [BP] Blood Pressure Mean [BP] BP Systolic 129 BP Diastolic 62 Blood Pressure Source [BP] Blood Pressure Position [BP] Blood Pressure Location [BP] Pulse Ox 98 Oxygen Delivery Method 12/29/21 19:18 12/29/21 19:18 12/29/21 19:17 Temperature Temperature Source Temporal Pulse Rate 79 Respiratory Rate Blood Pressure Blood Pressure [BP] Blood Pressure Mean [BP] BP Systolic BP Diastolic Blood Pressure Source [BP] Blood Pressure Position [BP] Blood Pressure Location [BP] Pulse Ox 98 Oxygen Delivery Method 12/29/21 19:17 12/29/21 19:32 12/29/21 19:32 Temperature 98.4 F Temperature Source Pulse Rate 83 Respiratory Rate Blood Pressure 117/57 L Blood Pressure [BP] Blood Pressure Mean [BP] BP Systolic 117 BP Diastolic 57 Blood Pressure Source [BP] Blood Pressure Position [BP] Blood Pressure Location [BP] Pulse Ox Oxygen Delivery Method 12/29/21 19:47 12/29/21 19:47 12/29/21 20:02 Temperature Temperature Source Pulse Rate 83 Respiratory Rate Blood Pressure 116/59 L 117/68 Blood Pressure [BP] Blood Pressure Mean [BP] BP Systolic 116 117 BP Diastolic 59 68 Blood Pressure Source [BP] Blood Pressure Position [BP] Blood Pressure Location [BP] Pulse Ox Oxygen Delivery Method 12/29/21 20:02 12/29/21 20:02 12/29/21 20:02 Temperature Temperature Source Temporal Pulse Rate 80 Respiratory Rate Blood Pressure Blood Pressure [BP] Blood Pressure Mean [BP] BP Systolic BP Diastolic Blood Pressure Source [BP] Blood Pressure Position [BP] Blood Pressure Location [BP] Pulse Ox 96 Oxygen Delivery Method 12/29/21 20:02 12/30/21 00:45 12/30/21 05:51 Temperature 98.6 F 97.1 F L 97 F L Temperature Source Temporal Temporal Pulse Rate 84 60 Respiratory Rate 18 14 Blood Pressure Blood Pressure [BP] 109/63 99/57 L Blood Pressure Mean [BP] 78 71 BP Systolic BP Diastolic Blood Pressure Source [BP] Monitor Monitor Blood Pressure Position [BP] Semi-Fowlers Semi-Fowlers Blood Pressure Location [BP] Left Arm Left Arm Pulse Ox Oxygen Delivery Method Room Air Room Air Weight Weight: 229 lb Body Mass Index (BMI) 31.0 Physical Exam Const alert, oriented x3, no apparent distress and healthy appearing HEENT normocephalic and moist oral mucous membranes Head and Scalp: atraumatic Neck full ROM, no lymphadenopathy, supple and thyroid normal General: trachea midline Lymph Lymphatic: no lymphadenopathy noted Chest inspection of chest normal Resp normal respiratory effort Cardio regular rate GI normal to inspection, nondistended, normoactive bowel sounds, soft to palpation and non-tender Inspection: gravid external exam normal Manual OB Exam: estimated gestational size appropriate, presentation c ephalic, dilated, effaced and station Extremity normal to inspection General Extremity: Negative for edema Skin no rashes or lesions noted Neuro no focal motor deficits and deep tendon reflexes 2+ bilaterally Motor Exam: strength 5/5 throughout and clonus absent Psych mental status grossly normal Labs Labs Labs: Blood Type B POSITIVE Antibody Screen NEGATIVE Hct 37.7 % (37-47) Hgb 12.2 g/dL (12.0-15.0) Obstetrics US Syphilis Total Ab Non-reactive Rubella IgG Antibody Reactive (Nonreactive) Hep Bs Antigen Non-Reactive (Nonreactive) Chlamydia DNA ([facility]) Negative (Negative) Neisseria gonorrhoeae DNA ([facility]) Negative (Negative) HIV 1&2 Antibody Non-Reactive (Nonreactive) Glucose 1 Hr 50 gm 148 mg/dL (70-140) H Rhogam given: No Assessment & Plan (1) : QUALIFIERS: Weeks of gestation: 37 weeks Qualified Code(s): Z3A.37 - 37 weeks gestation of COMMENT: GBS Negative, anatomy nl, addtnl heart and spine views in 2 wks- declined to be done at [facility] won't do fu but offered full repeat anatomy, declined carrier screen, NIPT low risk. declined afp. (2) AMA (advanced maternal age) multigravida 35+: COMMENT: low risk NIPT, growth us at 36 nl (3) Supervision of high-risk : COMMENT: PRR LELA:[birth year]04[birth year] girl Mary Lou PC:Esther. Spouse:Hasmukh (4) Abnormal glucose affecting : COMMENT: 3 hr test ordered (5) Gestational diabetes: COMMENT: diet controlled. weekly NSTs until delivery due to AMA and GDM. PLAN: Plan pitocin IOL monitor BS epi if desired
--- NOTE | 2021-12-30 08:12 | PCM.PN.OB ---
Subjective Subjective Patient doing well without complaints. Tolerating PO. Ambulating and voiding without difficulty. Feeding well. Denies chest pain, shortness of breath, calf pain/swelling, fevers, chills, lightheadedness. Objective Data Objective Data Vital Signs: Vital Signs Temp Pulse Resp BP Pulse Ox O2 Del Method 97 F L 60 14 99/57 L 96 Room Air 12/30/21 05:51 12/30/21 05:51 12/30/21 05:51 12/30/21 05:51 12/29/21 20:02 12/30/21 05:51 Oxygen Delivery Method Room Air Weight: 229 lb Body Mass Index (BMI) 31.0 Intake & Output: Intake and Output for Last 24 Hours 12/28/21 12/29/21 12/30/21 23:59 23:59 23:59 Intake Total 2329.17 / 2329.17 Output Total 1600 / 1600 900 / 900 Balance 729.17 / 729.17 -900 / -900 Lab / Micro Data Result Diagrams: 12/29/21 09:40 Labs: Laboratory Results - last 24 hr 12/29/21 09:40: WBC 10.1, RBC 4.07 L, Hgb 12.2, Hct 37.7, MCV 92.6, MCH 30.0, MCHC 32.4, RDW Std Deviation 51.1 H, RDW Coeff of Linda 15.0 H, Plt Count 193, MPV 10.6, Immature Gran % (Auto) 0.700, Neut % (Auto) 85.6 H, Lymph % (Auto) 8.1 L, [place] % (Auto) 5.0, Eos % (Auto) 0.4, Baso % (Auto) 0.2, Absolute Neuts (auto) 8.6 H, Absolute Lymphs (auto) 0.81 L, Nucleated RBC % 0 12/29/21 09:40: Blood Type B POSITIVE, Antibody Screen NEGATIVE 12/29/21 10:36: POC Glucose 98 12/29/21 11:41: POC Glucose 92 12/29/21 14:24: POC Glucose 106 12/29/21 16:06: POC Glucose 108 H 12/29/21 17:00: POC Glucose 91 12/29/21 18:13: POC Glucose 94 12/30/21 06:24: POC Glucose 100 Micro: Microbiology 12/29/21 09:42 Nasal Secretion SARS-CoV-2 Antigen (Rapid) - Final Physical Exam Const alert and oriented x3 HEENT normocephalic Eyes PERRL Neck full ROM Resp normal respiratory effort GI soft to palpation GI Narrative: FF below U Assessment & Plan (1) Vaginal delivery: COMMENT: SM 39 IOL GDMA1 ama girl [place] (2) Gestational diabetes: COMMENT: diet controlled. weekly NSTs until delivery due to AMA and GDM. PLAN: Plan s/p PPD #1 1. routine post delivery care 2. breast feeding- support given 3. rh positive 4. rubella immune 5. glucose stable 6.home today
[2021-12-30 09:28] VITALS: BP 107/68; PULSE 76; RESP 16; TEMP 36.6; O2SAT 99
[2021-12-30 13:03] VITALS: BP 107/60; PULSE 67; RESP 14; TEMP 36.4; O2SAT 97
[2021-12-30 17:03] VITALS: BP 97/51; PULSE 67; RESP 16; TEMP 36.6; O2SAT 98
== END 2021-12-30 19:10 | disposition home or self-care (01) | DRG 807 ==
PROVIDERS: Registered Nurse; Admitting Provider Obstetrics & Gynecology; Visit Provider Obstetrics & Gynecology
DX: O24.420 Gestational diabetes mellitus in childbirth, diet controlled (principal); Z37.0 Single live birth; O69.81X0 Labor and delivery complicated by cord around neck, without compression, not applicable or unspecified; Z3A.39 39 weeks gestation of pregnancy; Z87.59 Personal history of other complications of pregnancy, childbirth and the puerperium; Z28.310 Unvaccinated for COVID-19; Z28.9 Immunization not carried out for unspecified reason
CPT/HCPCS: 59025; 59050; 82962; 85025; 86850; 86900; 86901; 87426; 99218; J7120; G0378

== ENCOUNTER → 2024-12-11 | Outpatient (CLI) | payer OTHER, SELFPAY ==
[2024-12-13 12:08] LABS: Chlamydia By Nucleic Acid AMP Negative (Negative); Gonococcus By Nucleic Acid AMP Negative (Negative)
== END | disposition home or self-care (01) ==
LOC: LABSPEC 11:37
PROVIDERS: Referring Provider Obstetrics & Gynecology; Visit Provider Obstetrics & Gynecology
DX: O09.90 Supervision of high risk pregnancy, unspecified, unspecified trimester (principal); Z3A.00 Weeks of gestation of pregnancy not specified
CPT/HCPCS: 87086; 87088; 87491; 87591

== ENCOUNTER 2025-01-10 21:12 | Emergency (ER) | payer OTHER, SELFPAY ==
[2025-01-10 21:13] VITALS: BP 155/87; PULSE 86; RESP 16; TEMP 37; O2SAT 100; BMI 28.7
--- NOTE | 2025-01-10 21:19 | EKG12_ITS ---
Test Reason : CHEST PAIN
[2025-01-10 21:23] VITALS: O2SAT 100
--- NOTE | 2025-01-10 21:25 | ED.VIS.CHEST ---
HPI History of Present Illness Chief Complaint: Chest Pain Informant: patient Onset/Context/Timing Onset: Weeks Activity at onset: gradual Timing: Intermittent Quality: Positive for Aching Location: Left Chest Current Severity: Mild Maximum Severity: Mild Worsened By: Nothing; Not Worsened By Exertion, Movement of Arm, Movement of Torso, Eating, Palpation, Breathing or Coughing Relieved By: Nothing Associated Symptoms: Positive for Dyspnea; Negative for Nausea, Vomiting, Diaphoresis, Cough, Fever, Lightheadedness, Acid Reflux or Palpitations Narrative Narrative: 39-year-old female history of PCOS. Ab2. History of spontaneous miscarriage. Recently had a miscarriage about 6 weeks. She has had chest pain intermittently for weeks left-sided chest. Nothing specific makes it better or worse. Intermittent shortness of breath. No history of DVT or PE. She did have recent travel to [place] by airplane. Denies any leg pain or swelling. No pleuritic pain. No hemoptysis. No cardiac history. No back pain. No exertional chest pain or exertional shortness of breath. Prior Similar Symptoms: No Recent Illness/Hospitalization: No CVD Risk Factors: Negative for Hypertension, Diabetes, Hypercholesterolemia, Family History 1' </=55 or Smoking PE Risk Factors: Positive for Recent Travel/Surgery; Negative for Recent Immobilization, Prior DVT or PE, Cancer or OCP + Smoking + >/=35 TAD Risk Factors: Negative for Marfan's Syndrome, Hypertension or Family History PFSH [facility] Medical History FH: liver cancer FH: colon cancer Vaginal delivery Infertility macrosomia Gestational diabetes History of PCOS Allergy/AdvReac Type Severity Reaction Status Date / Time No Known Allergies Allergy Verified 12/19/24 10:49 Family History Grandfather Colon cancer, Onset Age: 80 Paternal Maternal Grandmother Cancer, Onset Age: 80 Liver Social History adopted: No household members: spouse and children housing: house number of children: 2 current occupational status: employed and unemployed current occupation: [employer] current occupational exposures/hazards: No pets and animals: No history of recent travel: Yes (September) out of state: Yes out of country: Yes sexually active: Yes Smoking Status: Never smoker alcohol intake: current alcohol intake frequency: holidays/special occasions only details: not while substance use type: does not use diet: diabetic well-balanced diet: daily or most days caffeine: Yes Type: coffee Number of servings: 1 and tea Number of servings: 1 eating out: 4 or more times/week during the past year weight has: remained stable what type of physical activity do you participate in: walking frequency: 1-2 times per week duration: 15-30 minutes/day richard/advent: [employer] seatbelt use: always do you feel safe at home: Yes additional social history: -[facility] ROS ROS ED ROS Narrative Atypical chest pain. Constitutional Constitutional ED: Denies chills or fever(s) Eyes Eyes: Reports none ENT ENT ED: Denies ear pain Cardiovascular Cardiovascular: Reports as per HPI and chest pain; Denies palpitations or racing heartbeat Respiratory/Chest Respiratory/Chest: Reports dyspnea; Denies cough Gastrointestinal Gastrointestinal: Denies abdominal pain, constipation, melena, nausea or vomiting Genitourinary Genitourinary ED: Denies dysuria or hematuria Musculoskeletal Musculoskeletal: Denies arthralgias or back pain Integumentary Denies abscess Neurologic Neurologic: Denies headache(s) Psychiatric Psychiatric: Denies anxiety Endocrine Endocrinology: Denies cold intolerance Hematologic/Lymphatic Hematologic/Lymphatic: Denies easy bleeding, easy bruising or lymphadenopathy Allergic/Immunologic Allergic/Immunologic ED: Denies mouth swelling, tongue swelling or urticaria EXAM Physical Exam Narrative Exam Narrative: 39-year-old female vital signs are stable afebrile. Pulse ox 100% on room air no hypoxia. H EENT exam pupils round react light. Moist mutes membranes. Neck nontender no JVD. No lymphadenopathy. Back nontender. Lungs clear to auscultation bilaterally. Heart regular rhythm no murmur rate about 85. Chest wall ribs nontender. Dr. Arnold of bruising. No crepitance. Abdomen is soft nontender normal bowel sounds without peritoneal signs. Moving all 4 extremities. 5-5 roll forming machine set up mechanic strength. Dorsi plantarflexion intact. Equal symmetrical radial pulses. Calves nontender without edema or cords. Neurologically patient awake alert. Answering questions following commands. Const Vital Signs: 01/10/25 21:13 01/10/25 21:23 01/10/25 21:24 Temperature 98.6 F Temperature Source Temporal Pulse Rate 86 Respiratory Rate 16 Respiratory Effort Normal Non-Labored Blood Pressure 155/87 H Blood Pressure Mean 109 Pulse Ox 100 100 Oxygen Delivery Method Room Air Room Air MDM MDM MDM Narrative Medical decision making narrative: 39-year-old female atypical nonreproducible chest pain. No pleuritic. No history of DVT or PE. Risk factors recent and recent travel to [place]. No cardiac history. Pain is not exertional. Not reproducible. Patient undergo cardiac workup with a D-dimer. Exam is benign. Repeat exam at 10:26 PM. Patient doing well. We went over her test results. Again no reproducible pain. This does not sound cardiac is not exertional. D-dimer is negative. There is no signs of pneumonia or pneumothorax. No signs of pericarditis. No history for reflux. Patient is comfortably discharged home with outpatient follow-up. She is comfortable with the plan. History & Record Review Discussion w/independent historian: Patient Additional record(s) reviewed:: Prior outpatient record and Prior labs Lab Data Attestation: I reviewed the patient's lab results. Lab results narrative: CBC unremarkable. White count 8. H&H 14 and 42. Platelets 291. Chemistries show gap of 10. BUN and creatinine 18 and 1. Glucose 107. Troponin 7. D-dimer is 0.4. Labs: Laboratory Results - last 24 hr 01/10/25 21:22 WBC 8.4 RBC 4.55 Hgb 14.1 Hct 42.7 MCV 93.8 MCH 31.0 MCHC 33.0 RDW Std Deviation 44.1 H RDW Coeff of Linda 12.9 Plt Count 291 MPV 9.0 Immature Gran % (Auto) 0.200 Neut % (Auto) 54.0 Lymph % (Auto) 33.9 Robertson % (Auto) 8.4 Eos % (Auto) 3.1 Baso % (Auto) 0.4 Absolute Neuts (auto) 4.5 Absolute Lymphs (auto) 2.85 Nucleated RBC % 0 D-Dimer Quant (PE/DVT) 0.40 Sodium 138 Potassium 3.8 Chloride 102 Carbon Dioxide 25.6 Anion Gap 10 BUN 18 Creatinine 1.00 Estim Creat Clear Calc 98.14 Est GFR (MDRD) Non-Af 74 BUN/Creatinine Ratio 17.6 Glucose 107 H Calcium 9.7 Troponin T High Sens 7 Radiography Chest X-Ray - ED: 2 View, Read by ED Physician, Heart, Lungs, Mediastinum, Bony Structures, No Acute Disease and Chronic Changes Diagnostic Testing: Clinical Impression(s) from Imaging Studies Chest X-Ray 01/10/25 21:43 IMPRESSION: No focal consolidations. Reading Location: [facility] Chest x-ray, 2 views, AP and lateral, interpreted by myself and radiology shows no acute abnormality. Normal cardiac silhouette. Normal mediastinum. Normal lung kim. No pneumonia. No pneumothorax. No effusions. Rhythm Strip Rhythm Strip: Sinus Rhythm Rate: 69 Ectopy: None EKG Initial EKG: Attestation: I personally reviewed and interpreted this EKG as follows: Interpretation: Sinus Rhythm and No Acute Injury Pattern Comments: Normal sinus rhythm rate of 69 no acute signs of PR or ischemia. No dysrhythmia. No pericarditis. No [id number]. Discharge Plan Triage Chief Complaint: Chest Pain ED Provider: Martín Amato Dx/Rx/DC Orders Primary Care Provider: Mukesh Longoria Referrals: Mukesh Longoria MD [Primary Care Provider, Family Practice] Print Language: Faroese
--- NOTE | 2025-01-10 21:29 | PCA ---
NO OLD EKG
[2025-01-10 21:34] LABS: Hematocrit 42.7 % (37-47); Hemoglobin 14.1 g/dL (12.0-15.0); Immature Granulocytes Count 0.020 X10^3/uL (0.0-0.0); Mean Corp Hgb Conc 33.0 g/dL (32-36); Mean Corpuscular Volume 93.8 fL (81-99); Mean Platelet Vol. 9.0 fl (6.2-12.0); NRBC Flagged by Analyzer 0 % (0-5); Platelet Count 291 K/mm3 (150-450); RBC Distribution Width CV 12.9 % (11.6-14.6); RBC Distribution Width SD 44.1 fl (35.1-43.9); Red Blood Count 4.55 M/mm3 (4.2-5.4); White Blood Count 8.4 K/mm3 (4.4-11.0)
--- NOTE | 2025-01-10 21:43 | RAD_ITS ---
PROCEDURE: RAD/Chest PA and Lateral
[2025-01-10 22:00] LABS: Troponin T High Sensitivity 7 ng/L (<=14)
[2025-01-10 22:03] LABS: Anion Gap 10 (5-15); BUN 18 mg/dL (4-19); BUN/Creat Ratio 17.6 RATIO (10-20); Calcium,Total 9.7 mg/dL (7.6-11.0); Carbon Dioxide 25.6 mmol/L (21.0-32.0); Chloride 102 mmol/L (98-108); Estimated Creatinine Clearance 98.14 ml/min (50-250); Glucose 107 mg/dL (70-99); Potassium 3.8 mmol/L (3.3-5.1)
[2025-01-10 22:11] LABS: D-Dimer Quantitative (DVT/PE) 0.40 FEU/ug/m (0.27-0.49)
[2025-01-10 22:29] VITALS: PULSE 74; RESP 16; O2SAT 98
[2025-01-10 22:58] VITALS: BP 125/65; PULSE 72; RESP 18; TEMP 36.6; O2SAT 100
== END 2025-01-10 22:59 | disposition home or self-care (01) ==
PROVIDERS: Emergency Provider Emergency Medicine; PCP Family Medicine; Visit Provider Emergency Medicine
DX: R07.9 Chest pain, unspecified (principal); R06.02 Shortness of breath; Z85.05 Personal history of malignant neoplasm of liver; Z85.038 Personal history of other malignant neoplasm of large intestine
CPT/HCPCS: 71046; 80048; 84484; 85025; 85379; 93005; 99284; A4216

== ENCOUNTER → 2025-01-11 | Outpatient (CLI) | payer OTHER, SELFPAY ==
--- OUTSIDE RECORDS SUMMARY | 2025-01-11 09:43 | XMS RPT_ITS | CCD ---
Author Organization [facility] Care Team Providers Care Digital Photo Printer Name Role Phone Pretty Luu Primary Care Provider Pretty Shoemaker Primary Care Provider JÚNIOR Salgado NP Attending Provider [phone] Reyna Juarez Attending Provider [phone] Care Physician, No Primary Primary Care Provider Unavailable Care Physician, No Primary Referring Provider Un available JÚNIOR Salgado NP Attending Provider [phone] Dr. Patricia Camarillo Attending Provider [phone] [phone] JÚNIOR Christianson Attending Provider [phone] Care Physician, No Primary Primary Care Provider Unavailable Care Physician, No Primary Referring Provider Un available JÚNIOR Salgado NP Attending Provider [phone] [phone] Dr. Reyna Juarez Attending Provider [phone] Care Physician, No Primary Primary Care Provider Unavailable Care Physician, No Primary Referring Provider Un available Dr. Patricia Camarillo Attending Provider [phone] [phone] Dr. Patricia Camarillo Admit Provider [phone]) Dr. Patricia Camarillo Other Provider [phone] Care Physician, No Primary Primary Care Physicia n Unavailable Care Physician, No Primary Referring Provider Un available Dr. Patricia Camarillo MD Attending Physician Dr. Patricia Camarillo MD Referring Provider Care Physician, No Primary Primary Care Unava ilable Patricia Camarillo Referring Unavailable Patricia Camarillo Attending Unavailable Care Physician, No Primary Referring Unava ilable Care Physician, No Primary Primary Care Unava ilable Marcanthony, Patricia Attending Unavailable Care Physician, No Primary Referring Rayo miable Care Physician, No Primary Primary Care Patricia Thao Attending Unavailable Care Physician, No Primary [facility], No Primary Primary Care Patricia Thao Attending Unavailable Medications Current Medications Medication Drug Class(es) Dates Sig (Normalized) Sig (Original) Acetylcysteine (6 sources) Antidote, Mucolytic, Antidote for Acetaminophen Overdose Acetylcysteine (NAC PO) Take by mouth. 0 Active Ca Carbonate-Mag Oxide-Vit C 400 mg calcium -117 mg-167 mg tablet (3 sources) Start: 11-30-2024 Ca Carbonate-Mag Oxide-Vit C 400 mg calcium -117 mg-167 mg tablet Active {tbl} PO November 30, 2024 12:00am Complies with drug therapy Start: 11-30-2024 calcium carbonate 1250 mg / cholecalciferol 200 unt oral tablet (9 sources) Vitamin D take 1 tablet by mouth once daily calcium-vitamin D 500-200 MG-UNIT Tab tablet Take 1 tablet by mouth daily. 0 Active loratadine 10 mg oral tablet (18 sources) Start: 01-14-2018 take 1 tablet by mouth once daily loratadine (CLARITIN) 10 MG Tab tablet Indications: Dysfunction of both eustachian tubes Take 1 tablet by mouth daily for 10 days. 10 tablet 0 01/14/2018 Active Magnesium (6 sources) Magnesium 200 MG tablet Take by mouth. 0 Active PREBIOTIC PRODUCT PO (6 sources) PREBIOTIC PRODUC T PO Take by mouth. 0 Active Prenat.Vits,Ap,Min-Iron- Folic (7 sources) Start: 05-27-2021 take 1 tablet by mouth once daily Prenat.Vits,Ap,Min-Iron -Folic Active 1 TABLET PO DAILY May 27, 2021 12:59pm Start: 05-27-2021 take 1 tablet by tay th once daily Prenat.Vits,Ap,Fsw-Pqnb-Duoog Active 1 TABLET PO DAILY May 27, 2021 12:00am MV-Min-Fe Fum-FA-DH A ( 1 PO) (20 sources) MV-Min- Fe Fum-FA-DHA ( 1 PO) Take by mouth. 0 Active Completed/Discontinued Medications Medication Drug Class(es) Dates Sig (Normalized) Sig (Original) acetaminophen 325 mg / oxyCODONE hydrochloride 5 mg oral tablet (2 sources) Opioid Agonist Start: 12-14-2024 End: 12-19-2024 Oxycodone-Acetamino phen (Percocet) 5-325 mg tablet Discontinued 1 {tbl} PO EVERY 6 HOURS 10 7 0 December 14, 2024 December 20, 2024 12:00am December 19, 2024 10:49am Acute pain in female pelvis Pelvic and perineal pain unspecified side Blood-Glucose Meter (True Metrix Air Glucose Meter) misc (8 sources) Start: 10-29-2021 End: 02-16-2022 Blood-Glucose Meter (True Metrix Air Glucose Meter) misc Discontinued 0 .ROUTE .MEDSUPPLY 1 0 October 29, 2021 12:00am February 16, 2022 12:31pm As directed Start: 10-29-2021 Blood-Glucose Meter (True Metrix Air Glucose Meter) misc Active 0 .ROUTE .MEDSUPPLY 1 October 29, 2021 12:00am As directed miSOPROStol 0.2 mg oral tablet (2 sources) Prostaglandin E1 Analog Start: 12-14-2024 End: 12-19-2024 Misoprostol (Cytotec) 200 mcg tablet Discontinued 800 ug PO .complex 8 1 December 14, 2024 12:00am December 19, 2024 10:49am 4 tablets orally and then repeat in 24 hours Multivit 97-Nnaa-Bxsdfi 1-Dha (Pnv-Dha) 27 mg iron-1 mg -300 mg capsule (3 sources) Start: 11-30-2024 End: 12-19-2024 Multivit 81-Ikqg-Paqphl 1-Dha (Pnv-Dha) 27 mg iron-1 mg -300 mg capsule Discontinued NMA PO November 30, 2024 12:00am December 19, 2024 10:49am Start: 11-30-2024 Multivit 47-Ir on-Folate 1-Dha (Pnv-Dha) 27 mg iron-1 mg -300 mg capsule Active NMA PO November 30, 2024 12:00am Complies with drug therapy Start: 11-30-2024 naproxen 500 mg oral tablet (2 sources) Nonsteroidal Anti-inflammatory Drug Start: 12-14-2024 End: 12-19-2024 take 1 tablet by mouth every twelve hours Naproxen 500 mg tablet Discontinued 500 mg PO Q12H 20 0 December 14, 2024 12:00am December 19, 2024 10:49am Prenat.Vits,Ap ,Bls-Fmqb-Qnxhk tablet (3 sources) Start: 05-27-2021 End: 11-30-2024 Prenat.Vits,Ap,Mi x-Lwnl-Plfzp tablet Discontinued 1 {tbl} PO DAILY May 27, 2021 12:00am November 30, 2024 8:22am Problems Active Problems Problem Classification Problem Date Documented Da te Episodic/Chronic Diabetes or abnormal glucose tolerance complicating ; childbirth; or the puerperium (20 sources) Abnormal glucose level; Translations: [Abnormal glucose complicating ] Onset: 12-11-2024 Episodic Comment on above: 3 hr test ordered diet controlled. cal hager NSTs until delivery due to AMA and GDM. Hemorrhage during ; abruptio placenta; placenta previa (9 sources) Threatened miscarriage; Translations: [Threatened ] Onset: 12-11-2024 12-11-2024 Episodic Comment on above: GS measuring 19-21 m m, CRL 3.6mm no FHT. 6 weeks. reviewed bleeding precautions, fu repeat scan. Immunizations and screening for infectious disease (2 sources) Encounter for immunization; Translations: [Immunization due] Episodic Menstrual disorders (4 sources) Amenorrhea; Translations: [Irregular periods] Chronic Other complications of (3 sources) Missed miscarriage; Translations: [Missed ] 12-19-2024 Episodic Comment on above: confirmed offered me dical vs surgical managment chose medical fu wednesday Other complications of (8 sources) Multigravida of advanced maternal age; Translations: [Supervision of elderly multigravida, unspecified trimester] 12-30-2021 Episodic Comment on above: low risk NIPT, growt h us at 36 nl Other complications of (16 sources) High risk ; Translations: [Supervision of high risk , unspecified, unspecified trimester] 11-30-2024 Episodic Comment on above: , LELA 07/19/25, Elisa Muro, Santiago goes by Johny ADKINS LELA: 2 girl Elisa PC:Esther. Spouse:Hasmukh Other complications of (20 sources) Supervision of elderly multigravida, unspecified trimester; Translations: [Elderly multigravida, unspecified as to episode of care or not applicable] Episodic Other complications of (20 sources) Supervision of high risk , unspecified, unspecified trimester; Translations: [Supervision of unspecified high-risk ] Onset: 01-05-2025 Episodic Other complications of (8 sources) Advanced maternal age ; Translations: [Elderly multigravida, unspecified as to episode of care or not applicable] 11-30-2024 Episodic Other complications of (8 sources) History of gestational diabetes mellitus; Translations: [Supervision of with other poor reproductive or obstetric history, unspecified trimester] 11-30-2024 Episodic Other complications of (1 source) Supervision of with other poor reproductive or obstetric history, unspecified trimester; Translations: [Supervision of with other poor reproductive or obstetric history, unspecified trimester] Onset: 12-11-2024 Episodic Other connective tissue disease (1 source) Foreign body; Translations: [Residual foreign body in soft tissue] Episodic Other endocrine disorders (1 source) Polycystic ovarian syndrome; Translations: [PCOS (polycystic ovarian syndrome)] Chronic Other gastrointestinal disorders (1 source) Irritable bowel syndrome with diarrhea; Translations: [Irritable bowel syndrome with diarrhea] Chronic Other gastrointestinal disorders (1 source) Constipation; Translations: [Constipation, unspecified] Episodic Other injuries and conditions due to external causes (1 source) Foreign body in esophagus; Translations: [Unspecified foreign body in esophagus causing other injury, initial encounter] Episodic Other and delivery including normal (20 sources) Normal ; Translations: [Encounter for supervision of normal first , third trimester] Onset: 04-22-2016 Resolved: 02-28-2020 05-18-2016 Episodic Comment on above: SM 39 IOL GDMA1 ama girl Elisa elects NIPT with gen kip & carrier testing GBS Negative, anatom y nl, addtnl heart and spine views in 2 wks- declined to be done at [facility], [facility] won't do fu but offered full repeat anatomy, declined carrier screen, NIPT low risk. declined afp. Other screening for suspected conditions (not mental disorders or infectious disease) (1 source) Encounter for screening for malignant neoplasm of cervix; Translations: [Screening for cervical cancer] Episodic Other skin disorders (1 source) Hirsutism; Translations: [Hirsutism] Episodic Residual codes; unclassified (1 source) Gestation period, 8 weeks; Translations: [8 weeks gestation of ] Episodic Residual codes; unclassified (8 sources) H/O: miscarriage; Translations: [Personal history of other complications of , childbirth and the puerperium] 11-30-2024 Episodic Comment on above: 2020 Residual codes; unclassified (1 source) Personal history of other complications of , childbirth and the puerperium; Translations: [Personal history of other complications of , childbirth and the puerperium] Onset: 12-11-2024 Episodic Residual codes; unclassified (1 source) 8 weeks gestation of ; Translations: [8 weeks gestation of ] Onset: 12-11-2024 Episodic Spontaneous (2 sources) Miscarriage in first trimester; Translations: [ with abortive outcome] 12-19-2024 Episodic Unclassified (3 sources) Patient encounter status; Translations: [Wellness examination] Unclassified (1 source) ERRONEOUS ENCOUNTER--DISREGAR D Unclassified (1 source) Pelvic and perineal pain unspecified side; Translations: [Pelvic and perineal pain unspecified side] Onset: 12-14-2024 Past or Other Problems Problem Classification Problem Date Documented Da te Episodic/Chronic NEGATED: Highlighted row has been ruled out!Unclassified (4 sources) No known active problems Results Test Name Value Interpretation Reference Range Facility Solution Analyst Office Visit Reporton 12-19-2024 Solution Analyst Office Visit Report [facility] [address], [address] [place] [address] OFFICE VISIT Date of Service: 12/19/24 MR#: [id number] Acct: [id number] Name: YURIDIA RUSH Rep #: [id number] : 1985 Provider: Dr. Patrciia bunch MD Age/Sex: 39/F Location: [facility] Status: Signed Intake Vital Signs 12/14/24 08:10 12/19/24 10:45 Height 6 ft 6 ft Weight: 204 lb 4 oz 207 lb 2 oz BMI 27.7 28.0 BP 137/88 H 143/84 H Intake Visit Reasons: Rescan *per Military Professional Required: No Is patient in pain?: Yes (cramping) Allergies No Known Allergies Allergy (Verified 12/19/24 10:49) Medications ???Medication ???Instructions ???Recorded ???Confirmed ???Type calcium 400 mg (as tab PO 11/30/24 12/19/24 History carbonate)-magnesium 117 mg-vit C 167 mg tablet Post menopausal: No Patient : No : No PFSH Medical History FH: liver cancer FH: colon cancer Vaginal delivery Infertility macrosomia Gestational diabetes History of PCOS Family History Grandfather Colon cancer, Onset Age: 80 Paternal Maternal Grandmother Cancer, Onset Age: 80 Liver Social History adopted: No household members: spouse and children housing: house number of children: 2 current occupational status: employed and unemployed current occupation: [employer] current occupational exposures/hazards: No pets and animals: No history of recent travel: Yes ([place] September) out of state: Yes out of country: Yes sexually active: Yes Smoking Status: Never smoker alcohol intake: current alcohol intake frequency: holidays/special occasions only details: not while substance use type: does not use diet: diabetic well-balanced diet: daily or most days caffeine: Yes Type: coffee Number of servings: 1 and tea Number of servings: 1 eating out: 4 or more times/week during the past year weight has: remained stable what type of physical activity do you participate in: walking frequency: 1-2 times per week duration: 15-30 minutes/day richard/taoism: Gnosticist seatbelt use: always do you feel safe at home: Yes additional [facility] history: [facility] HPI Rescan *per Details: YURIDIA RUSH is a 39 year old who presents for follow-up of early miscarriage. Patient had heavy bleeding after taking the Cytotec particularly on Wednesday passed large clots and what looked like products of conception. Bleeding has then since slowed down. She denies any fevers or significant cramping she feels like things has gone well and she is satisfied with her choice. On ultrasound the lining shows some clot with no vascularity and no significant retained products gestational sac is gone. The measures 8 to 9 mm. History 4 Elective abortions Hx Para 2 Spontaneous abortions 2 Hx # Term Pregnancies Ectopic pregnancies Hx # Pregnancies Multiple births # of living children 2 Past Pregnancies Del. Date Name GA/Weeks Outcome Route Bth Weight Gen Labor Lgth Anesthesia Del Locatn Provider FOB Unknown Mar 2020 spontaneous Unknown December 2024 spontaneous 08/07/16 Esther 40 live - full term 10#5oz Female 8 hr none Zina Santiago 12/29/21 [place] 39 live - full term 8#5oz Female epidural [facility] jama Camarillo Delivery Date: Last Updated by: Brianna Salgado NP, WAREHOUSE PERSON-C no intervention Delivery Date: 08/07/16 Last Updated by: Brianna Salgado NP, WAREHOUSE PERSON-C IOL, nonreactive NST. Delivery Date: 12/29/21 Last Updated by: Pily Gonzalez see problem list for complications, and IOL GDMA1 ama girl [place] SM. ROS Const Constitutional: Reports as per HPI; Denies fever(s) ENT ENT: Reports system reviewed and no additional complaints, except as documented Cardio Card: Reports system reviewed and no additional complaints, except as documented Resp Resp: Reports system reviewed and no additional complaints, except as documented GI GI: Reports as per HPI : Reports as per HPI Musc Musc: Reports system reviewed and no additional complaints, except as documented Skin Skin/Breast: Reports system reviewed and no additional complaints, except as documented Neuro Neuro: Reports system reviewed and no additional complaints, except as documented Endo Endo: Reports system reviewed and no additional complaints, except as documented Exam Const General: healthy appearing, comfortable and no acute distress HENAR Head: normal to inspection and normocephalic Neck Neck: no lymphadenopathy not (more content not included)... Normal [facility] - Chemistry and C hemistry - challengeOrdered By: Patricia Camarillo on 12-14-2024 Glucose Ql (U) Negative [facility] - UrinalysisOrder ed By: Patricia Camarillo on 12-14-2024 Protein Ql (U) Negative [facility] Solution Analyst Office Visit Reporton 12-14-2024 Solution Analyst Office Visit Report [facility] [address], [address] [place] [address] OFFICE VISIT Date of Service: 12/14/24 MR#: [id number] Acct: [id number] Name: YURIDIA RUSH Rep #: [id number] : 1985 Provider: Dr. Patricia bunch MD Age/Sex: 39/F Location: [facility] Status: Signed with Addenda ADDENDUM by Dr. Patricia Camarillo MD on 12/14/24 at 0855 Assessment and Plan Assessment and Plan (1) Hx of one miscarriage: Status: Acute Comment: 2020 (2) Advanced maternal age (AMA) in : Status: Acute (3) Supervision of high-risk : Status: Acute Comment: , LELA 07/19/25, Elisa Muro, Santiago [place] by Johny (4) : Status: Acute Qualifiers: Weeks of gestation: 9 weeks Qualified Code(s): Z3A.09 - 9 weeks gestation of Comment: elects NIPT with gender carrier testing (5) History of gestational diabetes mellitus (GDM) in prior , currently : Status: Acute (6) Missed : Status: Acute Comment: confirmed offered medical vs surgical managment chose medical fu wednesday Orders: Orders POC Urinalysis 2 Dip (Clinic) Today Medications: New misoprostol (Cytotec) 800 mcg (4 x 200 mcg) PO .complex 8 tabs 1RF oxycodone-acetaminophen 5-325 mg (Percocet) 1 TAB PO Q6H 10 tabs 0RF 7 days R10.20 - Pelvic and perineal pain unspecified side naproxen 500 mg PO Q12H 20 tabs 0RF 12/14/24 0855 Date Patricia Camarillo MD cc: * Signed Intake Vital Signs 12/11/24 10:42 12/14/24 08:10 Height 6 ft 6 ft Weight: 206 lb 8 oz 204 lb 4 oz BMI 28.0 27.7 BP 136/79 H 137/88 H Intake Visit Reasons: rescan Military Professional Required: No Is patient in pain?: No Allergies No Known Allergies Allergy (Verified 12/14/24 08:12) Medications ???Medication ???Instructions ???Recorded ???Confirmed ???Type calcium 400 mg (as tab PO 11/30/24 12/14/24 History carbonate)-magnesium 117 mg-vit C 167 mg tablet multivitamin no.47-iron fum 27 cap PO 11/30/24 12/14/24 History mg-folate no.1 1 mg-dha 300 mg capsule (PNV-DHA) misoprostol 200 mcg tablet 800 mcg (4 x 200 mcg) PO .complex 12/14/24 12/14/24 Rx (Cytotec) #8 tabs naproxen 500 mg tablet 500 mg PO Q12H #20 tabs 12/14/24 1 Rx oxycodone-acetaminophen 5 mg-325 1 tab PO Q6H 7 days #10 tabs 12/1412/14/24 Rx mg tablet (Percocet) Last Menstrual Period: 10/12/24 Zika: Zika virus screening: Negative : No PFSH PFSH Medical History FH: liver cancer FH: colon cancer Vaginal delivery Infertility macrosomia Gestational diabetes History of PCOS Family History Grandfather Colon cancer, Onset Age: 80 Paternal Maternal Grandmother Cancer, Onset Age: 80 Liver Social History adopted: No household members: spouse and children housing: house number of children: 2 current occupational status: employed and unemployed current occupation: [employer] current occupational exposures/hazards: No pets and animals: No history of recent travel: Yes ([place] September) out of state: Yes out of country: Yes sexually active: Yes Smoking Status: Never smoker alcohol intake: current alcohol intake frequency: holidays/special occasions only details: not while substance use type: does not use diet: diabetic well-balanced diet: daily or most days caffeine: Yes Type: coffee Number of servings: 1 and tea Number of servings: 1 eating out: 4 or more times/week during the past year weight has: remained stable what type of physical activity do you participate in: walking frequency: 1-2 times per week duration: 15-30 minutes/day richard/taoism: Gnosticist seatbelt use: always do you feel safe at home: Yes additional [facility]: [facility] History 4 Elective abortions Hx Para 2 Spontaneous abortions 1 Hx # Term Pregnancies Ectopic pregnancies Hx # Pregnancies Multiple births # of living children 2 Past Pregnancies Del. Date Name GA/Weeks Outcome Route Bth Weight Gen Labor Lgth Anesthesia Del Locat Provider FOB Unknown Mar 2020 spontaneous 08/07/16 Esther 40 live - full term 10#5oz Female 8 hr none Zina Santiago 12/29/21 Elisa 39 live - full term 8#5oz Female epidural [facility] jama Camarillo Delivery Date: Last Updated by: Brianna Salgado NP, WAREHOUSE PERSON-C no intervention Delivery Date: 08/07/16 Last Updated by: Brianna Salgado NP, WAREHOUSE PERSON-C IOL, nonreactive NST. Delivery (more content not included)... Normal [facility] Chlamydia/GC HARIS aptimaon CHLAMY,NUC ACID Negative Normal Negative [facility] Comment on above: Performed By: #### M 100.2200, L7000.1800 #### [facility] [address] [place], [place], [id number] GC BY NUC ACID Negative Normal Negative [facility] Comment on above: Result Comment: Perf ormed at: =G - [facility] [address] [id number] [employer] Professor: Albania Daugherty MD, Phone: [phone] Performed By: #### M 100.2200, L7000.1800 #### [facility] [address] [place], [address] Urine Cultureon 12-13-2024 [facility] Below infection leve l. Mixed Gram Positive Organisms [place] Count 1000-10,000 MIXC Mixed contaminants. Submit a new specimen if indicated. Normal [facility] Comment on above: Performed By: #### M 100.2200, L7000.1800 #### [facility] [address] [place], [address] Chlamydia trachomatis rRNA d etection by probe and target amplification methodOrdered By: Patricia Camarillo on 12-11-2024 C. trachomatis rRNA HARIS+probe Ql (Unsp spec) Negative Negative [facility] Neisseria gonorrhoeae nuclei c acid detection by amplified probe techniqueOrdered By: Patricia Camarillo on 12-11-2024 N. gonorrhoeae DNA HARIS+probe Ql (Unsp spec) Negative Negative [facility] Comment on above: Performed at: =[address] [id number] Director: Albania Daugherty MD, Phone: [phone] Solution Analyst Office Visit Reporton 12-11-2024 Solution Analyst Office Visit Report [facility] [address], [address] [place] [address] OFFICE VISIT Date of Service: 12/11/24 MR#: [id number] Acct: [id number] Name: YURIDIA RUSH Rep #: [id number] : 1985 Provider: Dr. Patricia bunch MD Age/Sex: 39/F Location: [facility] Status: Signed Intake Vital Signs 02/16/22 11:31 12/11/24 10:42 Height 6 ft 6 ft Weight: 206 lb 8 oz BMI 28.0 BP 136/79 H Intake Visit Reasons: *EST* NOB: LMP 10/12, LELA 07/19 Military Professional Required: No Is patient in pain?: No Allergies No Known Allergies Allergy (Verified 12/11/24 10:42) Medications ???Medication ???Instructions ???Recorded ???Confirmed ???Type calcium 400 mg (as tab PO 11/30/24 11/30/24 History carbonate)-magnesium 117 mg-vit C 167 mg tablet multivitamin no.47-iron fum 27 cap PO 11/30/24 11/30/24 History mg-folate no.1 1 mg-dha 300 mg capsule (PNV-DHA) Last Menstrual Period: 10/12/24 Zika: Zika virus screening: Negative : No Have you fallen in the past year?: No PFSH PFSH Medical History FH: liver cancer FH: colon cancer Vaginal delivery Infertility macrosomia Gestational diabetes History of PCOS Family History Grandfather Colon cancer, Onset Age: 80 Paternal Maternal Grandmother Cancer, Onset Age: 80 Liver Social History adopted: No household members: spouse and children housing: house number of children: 2 service: No current occupational status: employed and unemployed current occupation: [employer] current occupational exposures/hazards: No pets and animals: No history of recent travel: Yes (September) out of state: Yes out of country: Yes sexually active: Yes Smoking Status: Never smoker alcohol intake: current alcohol intake frequency: holidays/special occasions only details: not while substance use type: does not use diet: diabetic well-balanced diet: daily or most days caffeine: Yes Type: coffee Number of servings: 1 and tea Number of servings: 1 eating out: 4 or more times/week during the past year weight has: remained stable what type of physical activity do you participate in: walking frequency: 1-2 times per week duration: 15-30 minutes/day richard/taoism: Gnosticist seatbelt use: always do you feel safe at home: Yes additional [facility]: [facility] History 4 Elective abortions Hx Para 2 Spontaneous abortions 1 Hx # Term Pregnancies Ectopic pregnancies Hx # Pregnancies Multiple births # of living children 2 Past Pregnancies Del. Date Name GA/Weeks Outcome Route Bth Weight Gen Labor Lgth Anesthesia Del Locatn Provider FOB Unknown Mar 2020 spontaneous 08/07/16 Esther 40 live - full term 10#5oz Female 8 hr none Zina Santiago 12/29/21 Elisa 39 live - full term 8#5oz Female epidural [facility] jama [place] Delivery Date: Last Updated by: Brianna Salgado WAREHOUSE PERSON, WAREHOUSE PERSON-C no intervention Delivery Date: 08/07/16 Last Updated by: Brianna Salgado NP, WAREHOUSE PERSON-C IOL, nonreactive NST. Delivery Date: 12/29/21 Last Updated by: Pily Gonzalez see problem list for complications, and IOL GDMA1 ama girl elisa SM. HPI *EST* NOB: LMP 10/12, LELA 07/19 Details: YURIDIA RUSH is a 39 year old who presents for New OB visit. some spotting last week. no cramping doesn't have a lot of symptoms. CRL 3.6mm and GS 19-21 mm. no fht seen. OB Visit LELA Calculator Estimated Delivery Date Method Current WG Current Estimate 07/19/25 LMP (Certain) 8w 4d Comments: HIV: Urine Culture: Sequential Screen: NIPT Screen: Estimated Due Date: 07/19/25 Expected Delivery Route/Plan Labor Preferences- CB/BF classes: [] labor support person: [] labor intervention preferences: [] pain management options preferred: [] cut cord/dad catch: [] : [] PP control planned: [] discussed possible routes of delivery and associated risks: [] special requests: [] Specific Issue/Plans Covid status: [] Flu vaccine: [] Tdap vaccine: [] Rhogam: [] LARC form signed: [] Problem list reviewed and updated with the most current plan of care details and appropriate orders placed. Relevant counseling for the gestational age provided. Continue routine care and follow up unless otherwise noted in visit notes/problem list details Menstrual History Last Menstrual Period: 10/12/24 Reported LMP: definite Normal amount/duration: Yes On hormonal BC at conception: No An (more content not included)... Normal [facility] Urine cultureOrdered By: Josh [place]arillo on 12-11-2024 Bacteria identified Cx Nom (U) Positive Abnormal [facility] Glucose Glucometer (BldC) [M ass/Vol]on 12-30-2021 Glucose [Mass/Vol] 100 mg/dL 74-106 [facility] Work Phone: Comment on above: MANAGEMENT OF PATIEN T CARE PER NURSING PROTOCOL Absolute lymphocyte counton 12-29-2021 Lymphocytes Auto (Unsp spec) [#/Vol] 0.81 10*3/uL 0.83-4.51 [facility] Work Phone: Basophil percentageon 2021 Basophils/100 WBC (Bld) 0.2 % 0-1 [facility] Work Phone: Eosinophils/100 WBC (Bld) 0.4 % 0-5 [facility] Work Phone: Neutrophils (Bld) [#/Vol] 8.6 10*3/uL 2.0-7.7 [facility] Work Phone: Neutrophils/100 WBC (Bld) 85.6 % 47-70 [facility] Work Phone: WBC (Bld) [#/Vol] 10.1 10*3/uL 4.4-11.0 [facility] Work Phone: Blood erythrocytes count (nu mber/volume)on 12-29-2021 RBC (Bld) [#/Vol] 4.07 10*6/uL 4.2-5.4 [facility] Work Phone: Blood hemoglobin measurement (mass/volume)on 12-29-2021 Hemoglobin (Bld) [Mass/Vol] 12.2 g/dL 12.0-15.0 [facility] Work Phone: Blood lymphocytes/100 leukoc yteson 12-29-2021 Lymphocytes/100 WBC (Bld) 8.1 % 19-41 [facility] Work Phone: Blood monocytes/100 leukocyt eson 12-29-2021 Monocytes/100 WBC (Bld) 5.0 % 0-10 [facility] Work Phone: Blood platelet mean volumeon 12-29-2021 Platelet mean volume (Bld) [Entitic vol] 10.6 fL 6.2-12.0 [facility] Work Phone: Determination of erythrocyte mean corpuscular volume (MCV)on 12-29-2021 MCV (RBC) [Entitic vol] 92.6 fL 81-99 [facility] Work Phone: [phone] Hematocrit Auto (Bld) [Volum e fraction]on 12-29-2021 Hematocrit (Bld) [Volume fraction] 37.7 % 37-47 [facility] Work Phone: [phone] Laboratory - Hematology and Cell countson 12-29-2021 Erythrocyte distribution width (RBC) [Entitic vol] 51.1 fL 35.1-43.9 [facility] Work Phone: [phone] Erythrocyte distribution width (RBC) [Ratio] 15.0 % 11.6-14.6 [facility] Work Phone: [phone] Immature granulocytes/100 WBC (Bld) 0.700 % 0.0-0.9 [facility] Work Phone: [phone] Comment on above: IG% - Immature Granu locytes (promyelocytes, myelocytes and metamyelocytes) > 1% indicates that a LEFT SHIFT is Present. MCH (RBC) [Entitic mass] 30.0 pg 27.0-32.0 [facility] Work Phone: [phone] Nucleated RBC/100 WBC (Bld) [Ratio] 0 % 0-5 [facility] Work Phone: [phone] MCHC Auto (RBC) [Mass/Vol]on 12-29-2021 MCHC (RBC) [Mass/Vol] 32.4 g/dL 32-36 [facility] Work Phone: Platelets bldon 12-29-2021 Platelets (Bld) [#/Vol] 193 10*3/uL 150-450 [facility] Work Phone: Laboratory - Chemistry and C hemistry - challengeon 12-25-2021 Glucose Ql (U) Negative [facility] Work Phone: [phone] Laboratory - Urinalysison Protein Ql (U) Negative [facility] Work Phone: [phone] Laboratory - Chemistry and C hemistry - challengeon 12-19-2021 Glucose Ql (U) Negative [facility] Work Phone: [phone] Laboratory - Urinalysison Protein Ql (U) Negative [facility] Work Phone: Laboratory - Chemistry and C hemistry - challengeon 12-11-2021 Glucose Ql (U) Negative [facility] Work Phone: Laboratory - Urinalysison Protein Ql (U) Negative [facility] Work Phone: Laboratory - Chemistry and C hemistry - challengeon 11-28-2021 Glucose Ql (U) Negative [facility] Work Phone: Laboratory - Urinalysison Protein Ql (U) Negative [facility] Work Phone: Laboratory - Chemistry and C hemistry - challengeon 11-13-2021 Glucose Ql (U) Negative [facility] Work Phone: Laboratory - Urinalysison Protein Ql (U) Negative [facility] Work Phone: Laboratory - Hematology and Cell countson 11-05-2021 HbA1c (Bld) [Mass fraction] 5.2 % 4.2-6.3 [facility] Work Phone: Quantitative serum or plasma 3 hour gestational glucose tolerance panelon 10-29-2021 Glucose tolerance 3 hours gestational panel See comment [facility] Work Phone: Comment on above: FASTING 92 Col: 10/13 10/03 0728GLUCOSE TOLERANCE TEST FOR Reference Interval GESTATIONAL DIABETES Fasting <105 mg/dL 1 hour <190 mg/dl 2 hour <165 mg/dl 3 hour <145 mg/dl 1 HR GLU 208 H Col: 10/29/21 0832 2 HR GLU 171 H Col: 10/29/21 0932 3 HR GLU 99 Col: 10/29/21 1032 Laboratory - Chemistry and C hemistry - challengeon 10-27-2021 Glucose Ql (U) Negative [facility] Work Phone: Laboratory - Urinalysison Protein Ql (U) Negative [facility] Work Phone: Absolute lymphocyte counton 10-14-2021 Lymphocytes Auto (Unsp spec) [#/Vol] 1.40 10*3/uL 0.83-4.51 [facility] Work Phone: Basophil percentageon 2021 Basophils/100 WBC (Bld) 0.3 % 0-1 [facility] Work Phone: Eosinophils/100 WBC (Bld) 1.1 % 0-5 [facility] Work Phone: Neutrophils (Bld) [#/Vol] 9.0 10*3/uL 2.0-7.7 [facility] Work Phone: Neutrophils/100 WBC (Bld) 79.7 % 47-70 [facility] Work Phone: WBC (Bld) [#/Vol] 11.2 10*3/uL 4.4-11.0 [facility] Work Phone: Blood erythrocytes count (nu mber/volume)on 10-14-2021 RBC (Bld) [#/Vol] 3.68 10*6/uL 4.2-5.4 [facility] Work Phone: Blood hemoglobin measurement (mass/volume)on 10-14-2021 Hemoglobin (Bld) [Mass/Vol] 11.5 g/dL 12.0-15.0 [facility] Work Phone: Blood lymphocytes/100 leukoc yteson 10-14-2021 Lymphocytes/100 WBC (Bld) 12.5 % 19-41 [facility] Work Phone: Blood monocytes/100 leukocyt eson 10-14-2021 Monocytes/100 WBC (Bld) 5.2 % 0-10 [facility] Work Phone: Blood platelet mean volumeon 10-14-2021 Platelet mean volume (Bld) [Entitic vol] 9.6 fL 6.2-12.0 [facility] Work Phone: Determination of erythrocyte mean corpuscular volume (MCV)on 10-14-2021 MCV (RBC) [Entitic vol] 95.9 fL 81-99 [facility] Work Phone: [phone] Gestational diabetes screen 1-hour screen with 50g oral glucose loadon 10-14-2021 Glucose 1 Hr post 50 g glucose PO [Mass/Vol] 148 mg/dL 70-140 [facility] Work Phone: Hematocrit Auto (Bld) [Volum e fraction]on 10-14-2021 Hematocrit (Bld) [Volume fraction] 35.3 % 37-47 [facility] Work Phone: Laboratory - Chemistry and C hemistry - challengeon 10-14-2021 Glucose Ql (U) Negative [facility] Work Phone: [phone] Laboratory - Hematology and Cell countson 10-14-2021 Erythrocyte distribution width (RBC) [Entitic vol] 46.8 fL 35.1-43.9 [facility] Work Phone: [phone] Erythrocyte distribution width (RBC) [Ratio] 13.2 % 11.6-14.6 [facility] Work Phone: [phone] Immature granulocytes/100 WBC (Bld) 1.200 % 0.0-0.9 [facility] Work Phone: [phone] Comment on above: IG% - Immature Granu locytes (promyelocytes, myelocytes and metamyelocytes) > 1% indicates that a LEFT SHIFT is Present. MCH (RBC) [Entitic mass] 31.3 pg 27.0-32.0 [facility] Work Phone: [phone] Nucleated RBC/100 WBC (Bld) [Ratio] 0 % 0-5 [facility] Work Phone: [phone] Laboratory - Urinalysison Protein Ql (U) Negative [facility] Work Phone: [phone] MCHC Auto (RBC) [Mass/Vol]on 10-14-2021 MCHC (RBC) [Mass/Vol] 32.6 g/dL 32-36 [facility] Work Phone: [phone] Platelets bldon 10-14-2021 Platelets (Bld) [#/Vol] 223 10*3/uL 150-450 [facility] Work Phone: Laboratory - Chemistry and C hemistry - challengeon 09-22-2021 Glucose Ql (U) Negative [facility] Work Phone: Laboratory - Urinalysison Protein Ql (U) Negative [facility] Work Phone: Laboratory - Chemistry and C hemistry - challengeon 08-25-2021 Glucose Ql (U) Negative [facility] Work Phone: Laboratory - Urinalysison Protein Ql (U) Negative [facility] Work Phone: Laboratory - Chemistry and C hemistry - challengeon 07-30-2021 Glucose Ql (U) Negative [facility] Work Phone: Laboratory - Urinalysison Protein Ql (U) Negative [facility] Work Phone: Absolute lymphocyte counton 06-17-2021 Lymphocytes Auto (Unsp spec) [#/Vol] 1.89 10*3/uL 0.83-4.51 [facility] Work Phone: Basophil percentageon 2021 Basophils/100 WBC (Bld) 0.2 % 0-1 [facility] Work Phone: Eosinophils/100 WBC (Bld) 1.8 % 0-5 [facility] Work Phone: Neutrophils (Bld) [#/Vol] 9.1 10*3/uL 2.0-7.7 [facility] Work Phone: Neutrophils/100 WBC (Bld) 76.2 % 47-70 [facility] Work Phone: WBC (Bld) [#/Vol] 12.0 10*3/uL 4.4-11.0 [facility] Work Phone: Blood erythrocytes count (nu mber/volume)on 06-17-2021 RBC (Bld) [#/Vol] 4.17 10*6/uL 4.2-5.4 [facility] Work Phone: Blood hemoglobin measurement (mass/volume)on 06-17-2021 Hemoglobin (Bld) [Mass/Vol] 13.1 g/dL 12.0-15.0 [facility] Work Phone: Blood lymphocytes/100 leukoc yteson 06-17-2021 Lymphocytes/100 WBC (Bld) 15.8 % 19-41 [facility] Work Phone: [phone] Blood monocytes/100 leukocyt eson 06-17-2021 Monocytes/100 WBC (Bld) 5.7 % 0-10 [facility] Work Phone: [phone] Blood platelet mean volumeon 06-17-2021 Platelet mean volume (Bld) [Entitic vol] 9.4 fL 6.2-12.0 [facility] Work Phone: Determination of erythrocyte mean corpuscular volume (MCV)on 06-17-2021 MCV (RBC) [Entitic vol] 92.6 fL 81-99 [facility] Work Phone: HIV 1 and HIV-2 antibody ass ay with HIV-1 p24 antigen detectionon 06-17-2021 HIV 1+2 Ab+HIV1 p24 Ag IA Ql Non-Reactive Nonreactive [facility] Work Phone: [phone] Hematocrit Auto (Bld) [Volum e fraction]on 06-17-2021 Hematocrit (Bld) [Volume fraction] 38.6 % 37-47 [facility] Work Phone: [phone] Laboratory - Chemistry and C hemistry - challengeon 06-17-2021 Glucose Ql (U) Negative [facility] Work Phone: [phone] Laboratory - Hematology and Cell countson 06-17-2021 Erythrocyte distribution width (RBC) [Entitic vol] 43.5 fL 35.1-43.9 [facility] Work Phone: [phone] Erythrocyte distribution width (RBC) [Ratio] 12.7 % 11.6-14.6 [facility] Work Phone: [phone] Immature granulocytes/100 WBC (Bld) 0.300 % 0.0-0.9 [facility] Work Phone: Comment on above: IG% - Immature Granu locytes (promyelocytes, myelocytes and metamyelocytes) > 1% indicates that a LEFT SHIFT is Present. MCH (RBC) [Entitic mass] 31.4 pg 27.0-32.0 [facility] Work Phone: Nucleated RBC/100 WBC (Bld) [Ratio] 0 % 0-5 [facility] Work Phone: [phone] Laboratory - Urinalysison Protein Ql (U) Negative [facility] Work Phone: [phone] MCHC Auto (RBC) [Mass/Vol]on 06-17-2021 MCHC (RBC) [Mass/Vol] 33.9 g/dL 32-36 [facility] Work Phone: No Panel Informationon 06-17 Hepatitis B Surface Antigen Non-Reactive Nonreactive [facility] Work Phone: [phone] Hepatitis C Antibody Non-Reactive Nonreactive [facility] Work Phone: [phone] Comment on above: Non Reactive: < 0.8 Equivocal: >/= 0.8 to < 1.0 Reactive: >/= 1.0The CDC recommends that a reactive/equivocal HCV antibody result be followed up by the HCV Nucleic Acid Amplificationtest (371775) Miscellaneous Test Comment MAILED SPECIMEN [facility] Work Phone: [phone] Rubella IgG Antibody Reactive Nonreactive [facility] Work Phone: [phone] Comment on above: Antibody Results Int erpretation of Immune Status Non Reactive Presumed Non-Immune Equivocal Equivocal Reactive Presumed Immune Platelets bldon 06-17-2021 Platelets (Bld) [#/Vol] 278 10*3/uL 150-450 [facility] Work Phone: [phone] Serum Treponema species anti body detectionon 06-17-2021 Treponema sp Ab Ql (S) Non-Reactive [facility] Work Phone: [phone] Cervical or vagninal specime n microscopic examination by cytology stain (reported ason 05-28-2021 Cytology report Cyto stain Doc (Cvx/Vag) Comment [facility] Work Phone: Comment on above: The Pap smear is a s creening test designed to aid in thedetection of premalignant and malignant conditions of theuterine cervix. It is not a diagnostic procedure andshould not be used as the sole means of detecting cervicalcancer. Both false-positive and false-negative reports dooccur. Chlamydia trachomatis rRNA d etection by probe and target amplification methodon 05-28-2021 C. trachomatis rRNA HARIS+probe Ql (Unsp spec) Negative Negative [facility] Work Phone: Culture, urineon 05-28-2021 Bacteria identified Cx Nom (U) Positive [facility] Work Phone: Laboratory - Cytologyon 05-13 Hogshead Inspector Cyto stain Nom (Cvx/Vag) [ID] Comment [facility] Work Phone: Comment on above: Lilli Malave, Cyto technologist (ASCP) Laboratory - Drug toxicology on 05-28-2021 Amphetamines Ql (U) Negative [facility] Work Phone: Benzodiazepines Ql (U) Negative [facility] Work Phone: Cannabinoids Screen Ql (U) Negative [facility] Work Phone: Cocaine Ql (U) Negative [facility] Work Phone: Opiates Ql (U) Negative [facility] Work Phone: Laboratory - Microbiology an d Antimicrobial susceptibilityon 05-28-2021 N. gonorrhoeae DNA HARIS+probe Ql (Unsp spec) Negative Negative [facility] Work Phone: Comment on above: Performed at: =[facility] [address]Art[address] [place] [id number] Director: Albania Daugherty MD, Phone: [phone] Laboratory - Miscellaneous t estson 05-28-2021 Service comment (Unsp spec) [Interp] Comment [facility] Work Phone: Comment on above: This liquid based Th inPrep(R) pap test was screened withthe use of an image guided system. Service comment (Unsp spec) [Interp] . [facility] Work Phone: No Panel Informationon 05-28 Human Papillomavirus Screen Comment [facility] Work Phone: Comment on above: The HPV DNA reflex c riteria were not met with this specimenresult therefore, no HPV testing was performed.Performed at: [address] [id number] Director: Albania Daugherty MD, Phone: [phone] Pathology report final diagnosis Narrative Comment [facility] Work Phone: Comment on above: NEGATIVE FOR INTRAEP ITHELIAL LESION OR MALIGNANCY. MDMA (Ecstasy) Screen Negative [facility] Work Phone: Urine Barbiturates Screen Negative [facility] Work Phone: [phone] Urine Drug Screen Comment [facility] Work Phone: Comment on above: CONFIRMATORY TESTING FOR ALL POSITIVE URINE DRUG SCREENRESULTS WILL ONLY BE SENT OUT UPON PHYSICIAN ORDER. VISTA Urine Drug Screen methods provide only preliminaryanalytical test results. A more specific alternate chemicalmethod must be used in order to obtain a confirmedanalytical result. Gas chromatography/mass spectrometery(GC/MS) is the preferred confirmatory method. Clinicalconsideration and professional judgement should be appliedto any drug of abuse test result, particularly whenpreliminary positive results are used. URINE TCA TESTING MUST BE ORDERED SEPARATELY. USE TESTMNEMONIC: UTCA Urine Methadone Screen Negative [facility] Work Phone: Urine phencyclidine (PCP) de tectionon 05-28-2021 Phencyclidine Ql (U) Negative [facility] Work Phone: US OB DATING ABDOMINAL < 14W EEKSon 03-28-2020 : 1. Single pregnanc y of 7 weeks and 4 days. 2. NO HEARTBEAT DETECTED. Exam c/w missed Ab. 3. GA - 7 weeks 4 days - this this inconsistent with GA by LMP. 4. Dr Schulz present for scan. [facility] REFERRING PHYSICIAN: Dr. Rosales TECHNOLOGIST: Martha Kim PROCEDURE DATE : 03/28/2020 INDICATIONS: Early gestational, dating LMP 01/04/2020, LELA 10/10/2020 PROCEDURE DETAILS A single was noted within the uterus. NO HEARTBEAT SEEN. The CRL measures 1.34 cm , 7 weeks 4 days - this is inconsistent with GA by LMP. Dr. Schulz present for scan. FINAL [facility] VARICELLA AB, IGGon 03-07-20 20 V-ZOSTER, IGG 3248 Normal [facility] Comment on above: Result Comment: Refe rence range: Immune >165 Unit: index (NOTE) Negative <135 Equivocal 135 - 165 Positive >165 A positive result generally indicates exposure to the pathogen or administration of specific immunoglobulins, but it is not indication of active infection or stage of disease. PERFORMED AT [facility] Performed By: #### R AK, RUBL, ACBC, RTSH #### [place] [address] #### LVZG #### Testing performed [address] [facility] [place] [address] [place] [address] HEP B SURFACE AGon 0 HEP B SURFACE AG Negative Normal NEGATIVE [facility] RPRon 03-06-2020 Reagin Ab RPR Ql (S) NONREACTIVE Normal NONREACTIVE [facility] Comment on above: Result Comment: Test ing performed at [place] [address] Performed By: #### R AK, RUBL, ACBC, RTSH #### [place] [address] #### LVZG #### Testing performed at [address] [place] [address] [place] [address] RUBELLA SCREENon 03-06-2020 RUBELLA SCREEN Positive Normal POSITIVE [facility] Comment on above: Result Comment: POSI TIVE RESULT INDICATES PRESUMED IMMUNITY Testing performed at [place] [address] Performed By: #### R AK, RUBL, ACBC, RTSH #### [place] [address] #### LVZG #### Testing performed at [address] [place] [address] [place] [address] ABO/RH(D)on 03-05-2020 ABO/RH(D) ABO/RH(D) B POSITIVE Testing performed at [place] [address] Normal [facility] Comment on above: Performed By: #### A BRH #### [place] [address] ABO/RH(D) TYPINGon 0 ABO and Rh group Nom (Bld ) Positive [facility] ABO and Rh group Nom (Bld ) Testing performed at [address] ANTIBODY SCREENon 03-05-2020 Blood group antibody screen Ql Negative [facility] EXPIRATION DATE 03/08/2020,2359 [facility] EXPIRATION DATE Testing performed at [address] CBCon 03-05-2020 ABSOLUTE BAS 0.0 10*3/uL Normal 0.0-0.2 [facility] Comment on above: Result Comment: Test ing performed at [place] [address] Performed By: #### R AK, RUBL, ACBC, RTSH #### [place] [address] #### LVZG #### [place] [address] ABSOLUTE EOS 0.20 10*3/uL Normal 0.0-0.7 [facility] Comment on above: Performed By: #### R AK, RUBL, ACBC, RTSH #### [place] [address] #### LVZG #### Testing performed at [address] [address] ABSOLUTE NEUTROPHIL COUNT 6.9 10*3/uL High 1.4-6.5 [facility] Comment on above: Performed By: #### R AK, RUBL, ACBC, RTSH #### [place] [address] #### LVZG #### Testing performed [address] [facility] [place] [address] Basophils/100 WBC (Bld) 0.3 % Normal 0.0-2.0 [facility] Comment on above: Performed By: #### R AK, RUBL, ACBC, RTSH #### [place] [address] #### LVZG #### Testing performed at [address] [place] [address] DTYPE AUTO DIFF Normal [facility] Comment on above: Performed By: #### R AK, RUBL, ACBC, RTSH #### [place] [address] #### LVZG #### Testing performed [address] [facility] [place] [address] Eosinophils/100 WBC (Bld) 1.7 % Normal 0.0-11.0 [facility] Comment on above: Performed By: #### R AK, RUBL, ACBC, RTSH #### [place] [address] #### LVZG #### Testing performed at [address] [address] Lymphocytes (Bld) [#/Vol] 1.50 10*3/uL Normal 1.2-3.4 [facility] Comment on above: Performed By: #### R AK, RUBL, ACBC, RTSH #### [place] [address] #### LVZG #### Testing performed [address] [facility] [place] [address] Lymphocytes/100 WBC (Bld) 16.5 % Low 20.0-55.0 [facility] Comment on above: Performed By: #### R AK, RUBL, ACBC, RTSH #### [place] [address] #### LVZG #### Testing performed at [address] [address] Monocytes (Bld) [#/Vol] 0.5 10*3/uL Normal 0.0-0.7 [facility] Comment on above: Performed By: #### R AK, RUBL, ACBC, RTSH #### [place] [address] #### LVZG #### Testing performed at [address] [address] Monocytes/100 WBC (Bld) 5.1 % Normal 0.0-10.0 [facility] Comment on above: Performed By: #### R AK, RUBL, ACBC, RTSH #### [place] [address] #### LVZG #### Testing performed at [address] [address] Neutrophils/100 WBC (Bld) 76.4 % High 37.0-75.0 [facility] Comment on above: Performed By: #### R AK, RUBL, ACBC, RTSH #### [place] [address] #### LVZG #### Testing performed at [address] [address] Erythrocyte distribution width (RBC) [Ratio] 12.9 % Normal 11.5-14.5 [facility] Comment on above: Performed By: #### R AK, RUBL, ACBC, RTSH #### [place] [address] #### LVZG #### Testing performed at [address] [address] Hematocrit (Bld) [Volume fraction] 39.8 % Normal 36.0-48.0 [facility] Comment on above: Performed By: #### R AK, RUBL, ACBC, RTSH #### [place] [address] #### LVZG #### Testing performed at [address] [address] Hemoglobin (Bld) [Mass/Vol] 13.4 g/dL Normal 12.0-16.0 [facility] Comment on above: Performed By: #### R AK, RUBL, ACBC, RTSH #### [place] [address] #### LVZG #### Testing performed at [address] [address] MCH (RBC) [Entitic mass] 31.4 pg Normal 26.0-35.0 [facility] Comment on above: Performed By: #### R AK, RUBL, ACBC, RTSH #### [place] [address] #### LVZG #### Testing performed at [address] [address] MCHC (RBC) [Mass/Vol] 33.6 g/dL Normal 27.0-37.0 [facility] Comment on above: Performed By: #### R AK, RUBL, ACBC, RTSH #### [place] [address] #### LVZG #### Testing performed at [address] [address] MCV (RBC) [Entitic vol] 93.5 fL Normal 80.0-100.0 [facility] Comment on above: Performed By: #### R AK, RUBL, ACBC, RTSH #### [place] [address] #### LVZG #### Testing performed at [address] [place] [address] Platelet mean volume (Bld) [Entitic vol] 7.8 fL Normal 7.4-11.0 [facility] Comment on above: Performed By: #### R AK, RUBL, ACBC, RTSH #### [place] [address] #### LVZG #### Testing performed at [address] [address] Platelets (Bld) [#/Vol] 252 10*3/uL Normal 130.0-400.0 [facility] Comment on above: Performed By: #### R AK, RUBL, ACBC, RTSH #### [place] [address] #### LVZG #### Testing performed at [address] [address] RBC (Bld) [#/Vol] 4.26 10*6/uL Normal 4.0-5.4 [facility] Comment on above: Performed By: #### R AK, RUBL, ACBC, RTSH #### [place] [address] #### LVZG #### Testing performed at [address] [address] WBC (Bld) [#/Vol] 9.1 10*3/uL Normal 3.6-11.0 [facility] Comment on above: Performed By: #### R AK, RUBL, ACBC, RTSH #### [place] [address] #### LVZG #### Testing performed at [address] [address] CBC, EDIF, PLATELETon 2019 ABSOLUTE BASOPHIL COUNT 0.0 10*3/uL 0 - 0.2 10*3/uL [facility] Comment on above: Testing performed at [place] [address] Basophils/100 WBC (Bld) 0.3 % 0 - 2 % [facility] Differential cell count method Nom (Bld) AUTO DIFF % [facility] Eosinophils (Bld) [#/Vol] 0.20 10*3/uL 0 - 0.7 10*3/uL [facility] Eosinophils/100 WBC (Bld) 1.7 % 0 - 11 % [facility] Erythrocyte distribution width (RBC) [Ratio] 12.9 % 11.5 - 14.5 % [facility] Hematocrit (Bld) [Volume fraction] 39.8 % 36 - 48 % [facility] Hemoglobin (Bld) [Mass/Vol] 13.4 g/dL [facility] Interpretation and review of laboratory results Abnormal [facility] Lymphocytes (Bld) [#/Vol] 1.50 10*3/uL 1.2 - 3.4 10*3/uL [facility] Lymphocytes/100 WBC (Bld) 16.5 % Low 20 - 55 % [facility] MCH (RBC) [Entitic mass] 31.4 pg 26 - 35 PG [facility] MCHC (RBC) [Mass/Vol] 33.6 g/dL [facility] MCV (RBC) [Entitic vol] 93.5 fL [facility] Monocytes (Bld) [#/Vol] 0.5 10*3/uL 0 - 0.7 10*3/uL [facility] Monocytes/100 WBC (Bld) 5.1 % 0 - 10 % [facility] Neutrophils (Bld) [#/Vol] 6.9 10*3/uL High 1.4 - 6.5 10*3/uL [facility] Neutrophils/100 WBC (Bld) 76.4 % High 37 - 75 % [facility] Platelet mean volume (Bld) [Entitic vol] 7.8 fL [facility] Platelets (Bld) [#/Vol] 252 10*3/uL 130 - 400 10*3/uL [facility] RBC (Bld) [#/Vol] 4.26 10*6/uL 4 - 5.4 10*6/uL [facility] WBC (Bld) [#/Vol] 9.1 10*3/uL 3.6 - 11 10*3/uL [facility] RAPID TOX SCREEN WITH RELEX TO DRUGMCon 12-22-2020 Amphetamine (U) [Mass/Vol] Negative NEGATIVE NG/ML [facility] Comment on above: <500 ng/ml CUTOFF Barbiturates Screen Ql (U) Negative NEGATIVE NG/ML [facility] Comment on above: <200 ng/ml CUTOFF Benzodiazepines Ql (U) Negative NEGATIVE NG/ML [facility] Comment on above: <150 ng/ml CUTOFF Benzoylecgonine Ql (U) Negative NEGATIVE NG/ML [facility] Comment on above: <150 ng/ml CUTOFF Buprenorphine Ql (U) Negative NEGATIVE NG/ML [facility] Comment on above: <10 ng/ml CUTOFF Testing performed at [place] [address] Cannabinoids Screen Ql (U) Negative NEGATIVE NG/ML [facility] Comment on above: <50 ng/ml CUTOFF Methadone Screen Ql (U) Negative NEGATIVE NG/ML [facility] Comment on above: <200 ng/ml CUTOFF Methamphetamine (U) [Mass/Vol] Negative NEGATIVE NG/ML [facility] Comment on above: <500 ng/ml CUTOFF Opiates Screen Ql (U) Negative NEGATIVE NG/ML [facility] Comment on above: <100 ng/ml CUTOFF Oxycodone Ql (U) Negative NEGATIVE NG/ML [facility] Comment on above: <100 ng/ml CUTOFF Phencyclidine Screen method >25 ng/mL Ql (U) Negative NEGATIVE NG/ML [facility] Comment on above: <25 ng/ml CUTOFF Propoxyphene + Norpropoxyphene Screen Ql (U) Negative NEGATIVE NG/ML [facility] Comment on above: <300 ng/ml CUTOFF Tricyclic antidepressants Screen Ql (U) Negative NEGATIVE NG/ML [facility] Comment on above: <300 ng/ml CUTOFF RAPID TOX SCREEN,URINE WITH REFLEXon 03-05-2020 AMPHETAMINE Negative Normal NEGATIVE [facility] Comment on above: Result Comment: <500 ng/ml CUTOFF Performed By: #### R TOXR #### [place] [address] BARBITURATES Negative Normal NEGATIVE [facility] Comment on above: Result Comment: <200 ng/ml CUTOFF Performed By: #### R TOXR #### Testing performed at [address] [place] [address] Benzodiazepines Ql (U) Negative Normal NEGATIVE [facility] Comment on above: Result Comment: <150 ng/ml CUTOFF Performed By: #### R TOXR #### Testing performed at [address] [address] BUPRENORPHINE Negative Normal NEGATIVE [facility] Comment on above: Result Comment: <10 ng/ml CUTOFF Testing performed at [place] [address] Performed By: #### R TOXR #### [place] [address] Cannabinoids Screen Ql (U) Negative Normal NEGATIVE [facility] Comment on above: Result Comment: <50 ng/ml CUTOFF Performed By: #### R TOXR #### Testing performed at [address] [address] Cocaine Ql (U) Negative Normal NEGATIVE [facility] Comment on above: Result Comment: <150 ng/ml CUTOFF Performed By: #### R TOXR #### Testing performed at [address] [address] Methadone Ql (U) Negative Normal NEGATIVE [facility] Comment on above: Result Comment: <200 ng/ml CUTOFF Performed By: #### R TOXR #### Testing performed at [address] [address] METHAMPHETAMINE Negative Normal NEGATIVE [facility] Comment on above: Result Comment: <500 ng/ml CUTOFF Performed By: #### R TOXR #### Testing performed at [address] [address] Opiates Ql (U) Negative Normal NEGATIVE [facility] Comment on above: Result Comment: <100 ng/ml CUTOFF Performed By: #### R TOXR #### Testing performed at [address] [address] OXYCODONE Negative Normal NEGATIVE [facility] Comment on above: Result Comment: <100 ng/ml CUTOFF Performed By: #### R TOXR #### Testing performed at [address] [address] Phencyclidine Ql (U) Negative Normal NEGATIVE [facility] Comment on above: Result Comment: <25 ng/ml CUTOFF Performed By: #### R TOXR #### [place] [address] PROPOXYPHENE Negative Normal NEGATIVE [facility] Comment on above: Result Comment: <300 ng/ml CUTOFF Performed By: #### R TOXR #### [place] [address] Tricyclic antidepressants Screen Ql (U) Negative Normal NEGATIVE [facility] Comment on above: Result Comment: <300 ng/ml CUTOFF Performed By: #### R TOXR #### [place] [address] TSH W/FT4 REFLEXon 0 TSH Qn 2.630 m[IU]/L [facility] Comment on above: Testing performed at [place] [address] TSH,REFLEX FREE T4on 020 TSH,REFLEX FREE T4 2.630 uIU/ML Normal 0.46-4.68 [facility] Comment on above: Result Comment: Test ing performed at [place] [address] Performed By: #### R AK, RUBL, ACBC, RTSH #### [place] [address] #### LVZG #### Testing performed at [facility] [address] [place] [address] [place] [address] URINE CULTUREon 03-05-2020 Bacteria identified Cx Nom (U) SPECIMEN DESCRIPTION URINE CLEAN CATCH UA DIPSTICK LEUKOCYTE NEGATIVE * Result Note: NITRITE NEGATIVE * CULTURE NO GROWTH 2 DAYS * Result Note: Testing performed at [place] [address] * REPORT STATUS 03/07/2020 * Result Note: FINAL * Normal [facility] Comment on above: Performed By: #### A URNC #### [place] [address] POCT URINE PREGNANCYon 02-27 HCG.beta subunit Qn Positive [facility] SENDOUT TESTon 01-23-2020 SENDOUT TEST [facility] RE[facility], SENT VIA FED EX Normal [facility] Comment on above: Performed By: #### U NKSO #### Testing performed at [facility] [address] [place] [address] PROGESTERONEon 02-24-2019 PROGESTERONE 5.8 ng/mL Normal [facility] Comment on above: Result Comment: (NOT E) Follicular phase 0.1 - 0.9 Luteal phase 1.8 - 23.9 Ovulation phase 0.1 - 12.0 First trimester 11.0 - 44.3 Second trimester 25.4 - 83.3 Third trimester 58.7 - 214.0 Postmenopausal 0.0 - 0.1 PERFORMED AT [facility] Performed By: #### L PROG #### Testing performed at [facility] [address] [place] [address] [place] [address] US TRANSVAGINAL LIMITEDon US TRANSVAGINAL LIMITED PROCEDURE: US TRANSVAGINAL LIMITED, 02/07/2019 2:29 PM EST CLINICAL INDICATIONS: Irregular vaginal bleeding. LMP 02/01/2019. COMPARISON: None. TECHNIQUE: Transabdominal and transvaginal pelvic sonogram barba-scale assessment. FINDINGS: Uterus: 6.2 x 4.7 x 6.1 cm. Small Nabothian paracervical cyst is seen. Endometrial echo complex estimated at 0.5 cm. A focal uterine abnormality is not evident. Trace fluid adjacent to the left ovary is seen. Right ovary: 4.9 x 2.5 x 3.5 cm estimated volume of 23 mL. There are subcentimeter physiologic cysts identified. Left ovary: 3.9 x 2.3 x 2.7 cm estimated volume of 13 mL. Subcentimeter physiologic cysts are noted. IMPRESSION: 1. Small Nabothian paracervical cyst. 2. Normal sonographic morphology of the uterus. 3. Enlarged right ovarian volume, 23 mL. There are an increased number of subcentimeter physiologic cysts present bilaterally. Polycystic ovarian syndrome is a consideration in the appropriate clinical setting. 4. Trace left pelvic free fluid. Normal [facility] IMPRESSION: 1. Small Nabothian paracervical cyst. 2. Normal sonographic morphology of the uterus. 3. Enlarged right ovarian volume, 23 mL. There are an increased number of subcentimeter physiologic cysts present bilaterally. Polycystic ovarian syndrome is a consideration in the appropriate clinical setting. 4. Trace left pelvic free fluid. [employer] PROCEDURE: US TRANSVAGINAL LIMITED, 02/07/2019 2:29 PM EST CLINICAL INDICATIONS: Irregular vaginal bleeding. LMP 02/01/2019. COMPARISON: None. TECHNIQUE: Transabdominal and transvaginal pelvic sonogram barba-scale assessment. FINDINGS: Uterus: 6.2 x 4.7 x 6.1 cm. Small Nabothian paracervical cyst is seen. Endometrial echo complex estimated at 0.5 cm. A focal uterine abnormality is not evident. Trace fluid adjacent to the left ovary is seen. Right ovary: 4.9 x 2.5 x 3.5 cm estimated volume of 23 mL. There are subcentimeter physiologic cysts identified. Left ovary: 3.9 x 2.3 x 2.7 cm estimated volume of 13 mL. Subcentimeter physiologic cysts are noted. [employer] User, Interfaces - 02/07/2019 5:10 PM EST PROCEDURE: US TRANSVAGINAL [facility], 02/07/2019 2:29 PM EST CLINICAL INDICATIONS: Irregular vaginal bleeding. LMP 02/01/2019. COMPARISON: None. TECHNIQUE: Transabdominal and transvaginal pelvic sonogram barba-scale assessment. FINDINGS: Uterus: 6.2 x 4.7 x 6.1 cm. Small Nabothian paracervical cyst is seen. Endometrial echo complex estimated at 0.5 cm. A focal uterine abnormality is not evident. Trace fluid adjacent to the left ovary is seen. Right ovary: 4.9 x 2.5 x 3.5 cm estimated volume of 23 mL. There are subcentimeter physiologic cysts identified. Left ovary: 3.9 x 2.3 x 2.7 cm estimated volume of 13 mL. Subcentimeter physiologic cysts are noted. IMPRESSION IMPRESSION: 1. Small Nabothian paracervical cyst. 2. Normal sonographic morphology of the uterus. 3. Enlarged right ovarian volume, 23 mL. There are an increased number of subcentimeter physiologic cysts present bilaterally. Polycystic ovarian syndrome is a consideration in the appropriate clinical setting. 4. Trace left pelvic free fluid. [employer] POCT URINE PREGNANCYon 01-30 HCG.beta subunit Qn Negative [employer] No Panel Information Group B Streptococcus Culture Group B Beta Streptococcus is not isolated. [facility] Work Phone: Vital Signs Date Time Vital Sign Value Performing Clinician Facility 12-19-2024 10:45-0400 Body height 182.88 cm No Primary Care Physician [facility] 12-19-2024 10:45-0400 Body mass index (BMI) [Ratio] 28 kg/m2 No Primary Care Physician [facility] 12-19-2024 10:45-0400 Body weight 93.95 kg No Primary Care Physician [facility] 12-19-2024 10:45-0400 Diastolic blood pressure 84 mm[Hg] No Primary Care Physician [facility] 12-19-2024 10:45-0400 Systolic blood pressure 143 mm[Hg] No Primary Care Physician [facility] 12-14-2024 08:10-0400 Body height 182.88 cm No Primary Care Physician [facility] 12-14-2024 08:10-0400 Body mass index (BMI) [Ratio] 27.7 kg/m2 No Primary Care Physician [facility] 12-14-2024 08:10-0400 Body weight 92.64 kg No Primary Care Physician [facility] 12-14-2024 08:10-0400 Diastolic blood pressure 88 mm[Hg] No Primary Care Physician [facility] 12-14-2024 08:10-0400 Systolic blood pressure 137 mm[Hg] No Primary Care Physician [facility] 12-11-2024 10:42-0400 Body height 182.88 cm No Primary Care Physician [facility] 12-11-2024 10:42-0400 Body mass index (BMI) [Ratio] 28 kg/m2 No Primary Care Physician [facility] 12-11-2024 10:42-0400 Body weight 93.66 kg No Primary Care Physician [facility] 12-11-2024 10:42-0400 Diastolic blood pressure 79 mm[Hg] No Primary Care Physician [facility] 12-11-2024 10:42-0400 Systolic blood pressure 136 mm[Hg] No Primary Care Physician [facility] 12-30-2021 17:03-0400 Body temperature 97.9 [degF] No Primary Care Physician [facility] Work Phone: 12-30-2021 17:03-0400 Diastolic blood pressure 51 mm[Hg] No Primary Care Physician [facility] Work Phone: 12-30-2021 17:03-0400 Heart rate 67 /min No Primary Care Physician [facility] Work Phone: 12-30-2021 17:03-0400 Respiratory rate 16 /min No Primary Care Physician [facility] Work Phone: 12-30-2021 17:03-0400 SaO2% (BldA) [Mass fraction] 98 % No Primary Care Physician [facility] Work Phone: 12-30-2021 17:03-0400 Systolic blood pressure 97 mm[Hg] No Primary Care Physician [facility] Work Phone: 12-29-2021 09:58-0400 Body height 182.88 cm No Primary Care Physician [facility] Work Phone: 12-29-2021 09:58-0400 Body mass index (BMI) [Ratio] 31 kg/m2 No Primary Care Physician [facility] Work Phone: 12-29-2021 09:58-0400 Body weight 103.87 kg No Primary Care Physician [facility] Work Phone: 12-25-2021 09:47-0400 Body mass index (BMI) [Ratio] 30.8 kg/m2 No Primary Care Physician [facility] Work Phone: 12-25-2021 09:47-0400 Body weight 103.13 kg No Primary Care Physician [facility] Work Phone: 12-25-2021 09:47-0400 Diastolic blood pressure 70 mm[Hg] No Primary Care Physician [facility] Work Phone: 12-25-2021 09:47-0400 Systolic blood pressure 122 mm[Hg] No Primary Care Physician [facility] Work Phone: 12-19-2021 11:51-0400 Body mass index (BMI) [Ratio] 30.5 kg/m2 No Primary Care Physician [facility] Work Phone: 12-19-2021 11:51-0400 Body weight 102.28 kg No Primary Care Physician [facility] Work Phone: 12-19-2021 11:51-0400 Diastolic blood pressure 71 mm[Hg] No Primary Care Physician [facility] Work Phone: 12-19-2021 11:51-0400 Systolic blood pressure 107 mm[Hg] No Primary Care Physician [facility] Work Phone: 12-11-2021 11:06-0400 Body height 182.88 cm No Primary Care Physician [facility] Work Phone: 12-11-2021 11:05-0400 Body mass index (BMI) [Ratio] 30.4 kg/m2 No Primary Care Physician [facility] Work Phone: 12-11-2021 11:05-0400 Body weight 101.6 kg No Primary Care Physician [facility] Work Phone: 12-11-2021 11:05-0400 Diastolic blood pressure 72 mm[Hg] No Primary Care Physician [facility] Work Phone: 12-11-2021 11:05-0400 Systolic blood pressure 112 mm[Hg] No Primary Care Physician [facility] Work Phone: 12-04-2021 16:58-0400 Body weight 101.6 kg No Primary Care Physician [facility] Work Phone: 11-28-2021 13:24-0400 Body weight 101.6 kg No Primary Care Physician [facility] Work Phone: 11-28-2021 13:24-0400 Diastolic blood pressure 61 mm[Hg] No Primary Care Physician [facility] Work Phone: 11-28-2021 13:24-0400 Systolic blood pressure 97 mm[Hg] No Primary Care Physician [facility] Work Phone: 11-20-2021 15:17-0400 Body mass index (BMI) [Ratio] 30.4 kg/m2 No Primary Care Physician [facility] Work Phone: 11-13-2021 09:32-0400 Body mass index (BMI) [Ratio] 30.7 kg/m2 No Primary Care Physician [facility] Work Phone: 11-13-2021 09:32-0400 Body weight 102.56 kg No Primary Care Physician [facility] Work Phone: 11-13-2021 09:32-0400 Diastolic blood pressure 62 mm[Hg] No Primary Care Physician [facility] Work Phone: 11-13-2021 09:32-0400 Systolic blood pressure 100 mm[Hg] No Primary Care Physician [facility] Work Phone: 11-12-2021 11:39-0400 Body height 182.88 cm No Primary Care Physician [facility] Work Phone: 11-12-2021 11:39-0400 Body weight 102.96 kg No Primary Care Physician [facility] Work Phone: 11-05-2021 14:55-0400 Body mass index (BMI) [Ratio] 31.1 kg/m2 No Primary Care Physician [facility] Work Phone: 11-05-2021 14:55-0400 Body temperature 97 [degF] No Primary Care Physician [facility] Work Phone: 11-05-2021 14:55-0400 Body weight 104.38 kg No Primary Care Physician [facility] Work Phone: 11-05-2021 14:55-0400 Diastolic blood pressure 70 mm[Hg] No Primary Care Physician [facility] Work Phone: 11-05-2021 14:55-0400 Heart rate 80 /min No Primary Care Physician [facility] Work Phone: 11-05-2021 14:55-0400 Respiratory rate 16 /min No Primary Care Physician [facility] Work Phone: 11-05-2021 14:55-0400 SaO2% (BldA) [Mass fraction] 98 % No Primary Care Physician [facility] Work Phone: 11-05-2021 14:55-0400 Systolic blood pressure 120 mm[Hg] No Primary Care Physician [facility] Work Phone: 10-27-2021 10:15-0400 Body height 182.88 cm No Primary Care Physician [facility] Work Phone: 10-27-2021 10:15-0400 Body mass index (BMI) [Ratio] 30.7 kg/m2 No Primary Care Physician [facility] Work Phone: 10-27-2021 10:15-0400 Body weight 102.96 kg No Primary Care Physician [facility] Work Phone: 10-27-2021 10:15-0400 Diastolic blood pressure 80 mm[Hg] No Primary Care Physician [facility] Work Phone: 10-27-2021 10:15-0400 Systolic blood pressure 120 mm[Hg] No Primary Care Physician [facility] Work Phone: 10-14-2021 13:02-0400 Body mass index (BMI) [Ratio] 30.4 kg/m2 No Primary Care Physician [facility] Work Phone: 10-14-2021 13:02-0400 Body weight 101.83 kg No Primary Care Physician [facility] Work Phone: 10-14-2021 13:02-0400 Diastolic blood pressure 62 mm[Hg] No Primary Care Physician [facility] Work Phone: 10-14-2021 13:02-0400 Systolic blood pressure 126 mm[Hg] No Primary Care Physician [facility] Work Phone: 09-22-2021 13:53-0400 Body mass index (BMI) [Ratio] 29.9 kg/m2 No Primary Care Physician [facility] Work Phone: 09-22-2021 13:53-0400 Body weight 100.01 kg No Primary Care Physician [facility] Work Phone: 09-22-2021 13:53-0400 Diastolic blood pressure 71 mm[Hg] No Primary Care Physician [facility] Work Phone: 09-22-2021 13:53-0400 Systolic blood pressure 108 mm[Hg] No Primary Care Physician [facility] Work Phone: 08-25-2021 12:10-0400 Body mass index (BMI) [Ratio] 28.6 kg/m2 No Primary Care Physician [facility] Work Phone: 08-25-2021 12:10-0400 Body weight 95.7 kg No Primary Care Physician [facility] Work Phone: 08-25-2021 12:10-0400 Diastolic blood pressure 80 mm[Hg] No Primary Care Physician [facility] Work Phone: 08-25-2021 12:10-0400 Systolic blood pressure 120 mm[Hg] No Primary Care Physician [facility] Work Phone: 07-30-2021 11:12-0400 Body mass index (BMI) [Ratio] 27.9 kg/m2 No Primary Care Physician [facility] Work Phone: 07-30-2021 11:12-0400 Body weight 93.44 kg No Primary Care Physician [facility] Work Phone: 07-30-2021 11:12-0400 Diastolic blood pressure 60 mm[Hg] No Primary Care Physician [facility] Work Phone: 07-30-2021 11:12-0400 Systolic blood pressure 108 mm[Hg] No Primary Care Physician [facility] Work Phone: 06-17-2021 14:57-0400 Body height 182.88 cm [employer]HOU[employer] PERSON[employer]C Brianna Salgado WAREHOUSE PERSON Work Phone: [facility] Work Phone: 06-17-2021 14:57-0400 Body mass index (BMI) [Ratio] 27.6 kg/m2 [employer] PERSON[employer]C Brianna Salgado WAREHOUSE PERSON Work Phone: [facility] Work Phone: 06-17-2021 14:57-0400 Body weight 92.58 kg [employer]HOU[employer] PERSON[employer]C Brianna Damian WAREHOUSE PERSON Work Phone: [facility] Work Phone: 06-17-2021 14:57-0400 Diastolic blood pressure 82 mm[Hg] [employer]HOU[employer] PERSON-C Brianna Admian WAREHOUSE PERSON Work Phone: [facility] Work Phone: 06-17-2021 14:57-0400 Systolic blood pressure 120 mm[Hg] [employer]HOUSE PERSON-C Brianna Damian WAREHOUSE PERSON Work Phone: [facility] Work Phone: 05-28-2021 09:19-0400 Body height 182.88 cm [employer]HOU[employer] PERSON-C Brianna Trenton WAREHOUSE PERSON Work Phone: [facility] Work Phone: 05-28-2021 09:19-0400 Body mass index (BMI) [Ratio] 27.1 kg/m2 [employer] PERSON[employer]C Brianna Damian WAREHOUSE PERSON Work Phone: [facility] Work Phone: 05-28-2021 09:19-0400 Body weight 90.83 kg [employer]HOU[employer] PERSON[employer]C Brianna Trenton WAREHOUSE PERSON Work Phone: [facility] Work Phone: 05-28-2021 09:19-0400 Diastolic blood pressure 88 mm[Hg] W[employer]HOUSE PERSON-C Brianna Trenton WAREHOUSE PERSON Work Phone: [facility] Work Phone: 05-28-2021 09:19-0400 Systolic blood pressure 128 mm[Hg] WAREHOUSE PERSON-C Brianna Damian WAREHOUSE PERSON Work Phone: [facility] Work Phone: 04-04-2020 09:34-0500 BMI (Body Mass Index) 26.07 kg/m2 [facility] 04-04-2020 09:34-0500 Body Temperature 99.1 [degF] [facility] 04-04-2020 09:34-0500 Body weight 87.18 kg [facility] 04-04-2020 09:34-0500 BP Diastolic 72 mm[Hg] [facility] 04-04-2020 09:34-0500 BP Systolic 110 mm[Hg] [facility] 04-04-2020 09:34-0500 Height 182.9 cm [facility] 03-28-2020 09:31-0500 Body surface area Derived from formula 2.08 m2 [facility] 03-28-2020 09:01-0500 BMI (Body Mass Index) 25.63 kg/m2 [facility] 03-28-2020 09:01-0500 Body Temperature 96.4 [degF] [facility] 03-28-2020 09:01-0500 Body weight 85.73 kg [facility] 03-28-2020 09:01-0500 BP Diastolic 82 mm[Hg] [facility] 03-28-2020 09:01-0500 BP Systolic 120 mm[Hg] [facility] 03-28-2020 09:010500 Height 182.9 cm [facility] 03-05-2020 13:34-0500 BMI (Body Mass Index) 25.63 kg/m2 [facility] [id number] [facility] 03-05-2020 13:34-0500 Body Temperature 98.01 [degF] [facility]g [facility] [id number] [facility] 03-05-2020 13:34-0500 Body weight 85.73 kg Avg [facility] [id number] [facility] 03-05-2020 13:34-0500 BP Diastolic 70 mm[Hg] Avg [facility] [id number] [facility] 03-05-2020 13:34-0500 BP Systolic 126 mm[Hg] Avg Pre[facility] [id number] [facility] 03-05-2020 13:34-0500 Height 182.9 cm Avg [facility] [id number] [facility] 02-28-2020 10:22-0500 BMI (Body Mass Index) 25.36 kg/m2 [facility] [id number] [facility] 02-28-2020 10:0500 Body Temperature 97.81 [degF] [facility]g [facility] [id number] [facility] 02-28-2020 10:-0500 Body weight 84.82 kg Avg Pre[facility] [id number] [facility] 02-28-2020 10:-0500 BP Diastolic 64 mm[Hg] Avg [facility] [id number] [facility] 02-28-2020 10:-0500 BP Systolic 104 mm[Hg] Avg [facility] [id number] [facility] 02-28-2020 10:0500 Height 182.9 cm Avg Prema Gal [id number] [facility] 03-21-2019 13:09-0500 BMI (Body Mass Index) 27.42 kg/m2 [facility] 03-21-2019 13:09-0500 Body weight 91.72 kg [facility] 03-21-2019 13:09-0500 BP Diastolic 81 mm[Hg] [facility] 03-21-2019 13:09-0500 BP Systolic 123 mm[Hg] [facility] 03-21-2019 13:09-0500 Height 182.9 cm [facility] 03-21-2019 13:09-0500 Pulse (Heart Rate) 66 /min [facility] 01-30-2019 14:17-0500 BMI (Body Mass Index) 28.1 kg/m2 [facility] 01-30-2019 14:17-0500 Body weight 93.98 kg [facility] 01-30-2019 14:17-0500 BP Diastolic 85 mm[Hg] [facility] 01-30-2019 14:17-0500 BP Systolic 133 mm[Hg] [facility] 01-30-2019 14:17-0500 Height 182.9 cm [facility] 01-30-2019 14:17-0500 Pulse (Heart Rate) 75 /min [facility] 07-27-2018 14:56-0400 BMI (Body Mass Index) 25.73 kg/m2 Nathalie Brian [facility] 07-27-2018 14:56-0400 BP Diastolic 77 mm[Hg] Nathaliepadma Brian [facility] 07-27-2018 14:56-0400 BP Systolic 109 mm[Hg] Nathaliepadma Brian [facility] 07-27-2018 14:56-0400 Height 185.[address] [facility] 07-27-2018 14:56-0400 Pulse (Heart Rate) 69 /min Nathalie [facility] 07-27-2018 14:56-0400 Weight 88.[address] [facility] 07-14-2018 16:11-0400 BMI (Body Mass Index) 25.7 kg/m2 [facility] 07-14-2018 16:11-0400 Body Temperature 97.5 [degF] [facility] 07-14-2018 16:11-0400 BP Diastolic 80 mm[Hg] [facility] 07-14-2018 16:11-0400 BP Systolic 122 mm[Hg] [facility] 07-14-2018 16:11-0400 Height 185.4 cm [facility] 07-14-2018 16:11-0400 Pulse (Heart Rate) 71 /min [facility] 07-14-2018 16:11-0400 Pulse Oximetry 96 % [facility] 07-14-2018 16:11-0400 Respiratory Rate 16 /min [facility] 07-14-2018 16:11-0400 Weight 88.36 kg [facility] 06-01-2018 08:40-0400 BMI (Body Mass Index) 25.6 kg/m2 Nathaliepadma Brian [facility] 06-01-2018 08:40-0400 BP Diastolic 82 mm[Hg] Nathaliepadma Brian [facility] 06-01-2018 08:40-0400 BP Systolic 121 mm[Hg] Nathalie [facility] 06-01-2018 08:40-0400 Height 185.[address] [facility] 06-01-2018 08:40-0400 Pulse (Heart Rate) 87 /min [facility] 06-01-2018 08:40-0400 Weight 88 kg Nathalie Brian [facility] 05-25-2018 14:28-0400 BMI (Body Mass Index) 26.47 kg/m2 [facility] 05-25-2018 14:28-0400 Body Temperature 98.1 [degF] [facility] 05-25-2018 14:28-0400 BP Diastolic 72 mm[Hg] [facility] 05-25-2018 14:28-0400 BP Systolic 120 mm[Hg] [facility] 05-25-2018 14:28-0400 Height 185.4 cm [facility] 05-25-2018 14:28-0400 Pulse (Heart Rate) 73 /min [facility] 05-25-2018 14:28-0400 Pulse Oximetry 98 % [facility] 05-25-2018 14:28-0400 Respiratory Rate 18 /min [facility] 05-25-2018 14:28-0400 Weight 90.99 kg [facility] Encounters Encounter Date Encounter Type Care Provider Facility Start: 12-19-2024 End: 12-19-[address] Patricia Camarillo MD -[facility] Work Phone: Start: 12-19-2024 End: 12-19-2024 ambulatory No Primary Care Physician -[facility] Start: 12-14-2024 End: 12-14-[address] Patricia Camarillo MD -[facility] Work Phone: Start: 12-14-2024 End: 12-14-2024 ambulatory No Primary Care Physician -[facility] Start: 12-11-2024 End: 12-11-[address] Patricia Camarillo MD -[facility] Work Phone: Start: 12-11-2024 End: 12-11-2024 ambulatory No Primary Care Physician [facility] Start: 12-11-2024 End: 12-11-2024 ambulatory No Primary Care Physician Facility:[facility] Start: 12-30-2021 Non-patient / Non-visit No Primary Care Physician [facility] Start: 12-29-2021 Non-patient / Non-visit No Primary Care Physician [facility] Start: 12-29-2021 End: 12-30-2021 Evaluation and management of inpatient No Primary Care Physician [facility] Start: 12-25-2021 End: 12-25-2021 Patient encounter procedure No Primary Care Physician [facility] Start: 12-19-2021 End: 12-19-2021 Patient encounter procedure No Primary Care Physician [facility] Start: 12-11-2021 End: 12-11-2021 ambulatory No Primary Care Physician [facility] Work Phone: Start: 12-11-2021 End: 12-11-2021 Patient encounter procedure No Primary Care Physician [facility]Labor[facility], Specimen Start: 12-11-2021 End: 12-11-2021 Patient encounter procedure No Primary Care Physician [facility] Start: 12-08-2021 End: 12-08-2021 ambulatory No Primary Care Physician [facility] Work Phone: Start: 12-08-2021 End: 12-08-2021 Patient encounter procedure No Primary Care Physician [facility] Start: 12-04-2021 End: 12-12-2021 Discharged Recurring No Primary Care Physician [facility] Start: 12-04-2021 Registered Recurring No Primar y Care Physician [facility] Start: 11-28-2021 End: 11-28-2021 Patient encounter procedure No Primary Care Physician [facility] Start: 11-13-2021 End: 11-13-2021 Patient encounter procedure No Primary Care Physician [facility] Start: 11-12-2021 End: 11-12-2021 ambulatory No Primary Care Physician [facility] Work Phone: Start: 11-12-2021 End: 11-12-2021 Discharged Recurring No Primary Care Physician [facility] Start: 11-05-2021 End: 11-05-2021 Patient encounter procedure No Primary Care Physician [facility] End[facility] Start: 10-29-2021 End: 10-29-2021 ambulatory No Primary Care Physician [facility] Work Phone: Start: 10-29-2021 End: 10-29-2021 Patient encounter procedure No Primary Care Physician [facility] Start: 10-27-2021 End: 10-27-2021 Patient encounter procedure No [facility] Start: 10-14-2021 End: 10-14-2021 Patient encounter procedure No Primary Care Physician [facility] Start: 09-22-2021 End: 09-22-2021 Patient encounter procedure No Primary Care Physician [facility] Start: 08-25-2021 End: 08-25-2021 Patient encounter procedure No Primary Care Physician [facility] Start: 07-30-2021 End: 07-30-2021 Patient encounter procedure No Primary Care Physician [facility] Start: 06-17-2021 End: 06-17-2021 Patient encounter procedure WAREHOUSE PERSON-Abilio Salgado WAREHOUSE PERSON [facility] Start: 05-28-2021 End: 05-28-2021 Patient encounter procedure WAREHOUSE PERSON-Abilio Salgado WAREHOUSE PERSON [facility] Start: 05-28-2021 End: 05-28-2021 Patient encounter procedure WAREHOUSE PERSON-Abilio Salgado WAREHOUSE PERSON Work Phone: [facility] Start: 05-27-2021 Non-patient / Non-visit WAREHOUSE PERSON-Abilio Salgado WAREHOUSE PERSON Work Phone: [facility] Start: 04-22-2021 End: 04-22-2021 Office outpatient new 30 minutes Catalino Linda DO Work Phone: [facility] Gastroenterology Comment on above: Irritable bowel synd andi with diarrhea (Primary Dx); Constipation, unspecified constipation type; Foreign body (FB) in soft tissue; Foreign body in esophagus, initial encounter Start: 04-04-2020 End: 04-04-2020 Office outpatient visit 15 minutes Hollis Rosales Work Phone: [facility] PROMOTIONS REPRESENTATIVE Comment on above: Spontaneous in first trimester (Primary Dx) Start: 03-28-2020 End: 03-28-2020 Follow-up encounter Adrian Schulz Work Phone: [facility] PROMOTIONS REPRESENTATIVE Comment on above: Missed (Yanet lisa Dx) Start: 03-28-2020 End: 03-28-2020 Subsequent hospital visit by physician Adrian Schulz Work Phone: [facility]TR[facility] Start: 03-05-2020 End: 03-05-2020 Office outpatient visit 5 minutes Hollis Rosales Work Phone: [facility] PROMOTIONS REPRESENTATIVE Comment on above: 8 weeks gestation of (Primary Dx) Start: 02-28-2020 End: 02-28-2020 Clinical Support Encounter Hollis Rosales [facility] PROMOTIONS REPRESENTATIVE Comment on above: Amenorrhea (Primary Dx) Start: 03-21-2019 End: 03-21-2019 Office outpatient visit 15 minutes Katherine Murdock Work Phone: [facility] PROMOTIONS REPRESENTATIVE BUCYRUS Comment on above: PCOS (polycystic ova alan syndrome) (Primary Dx) Start: 02-07-2019 End: 02-07-2019 Subsequent hospital visit by physician Katherine Murdock Work Phone: [facility] Ultrasound Comment on above: Arrived Start: 01-30-2019 End: 01-30-2019 Office outpatient visit 25 minutes Katherine Murdock Work Phone: [facility] PROMOTIONS REPRESENTATIVE [employer]UCYRUS Comment on above: Irregular menses (Pr imary Dx); Amenorrhea Start: 08-12-2018 End: 08-12-2018 Patient encounter procedure Pretty Luu Work Phone: [facility] Comment on above: Immunization due (Pr imary Dx) Start: 07-27-2018 End: 07-27-2018 Periodic preventive med est patient 18-39 yrs Nathalie Brian Work Phone: [facility] PROMOTIONS REPRESENTATIVE Comment on above: Well woman exam with routine gynecological exam (Primary Dx); Screening for cervical cancer Start: 07-18-2018 End: 07-18-2018 Telephone encounter Rodolfo Maldonado [facility] Comment on above: Other Start: 07-15-2018 End: 07-15-2018 Telephone encounter Rodolfo Maldonado [facility] Comment on above: Other Start: 07-14-2018 End: 07-14-2018 Office outpatient visit 15 minutes Pretty Luu Work Phone: [facility] Comment on above: Immunization due (Pr imary Dx) Start: 07-14-2018 End: 07-14-2018 Letter encounter Provider Matt [facility] Start: 07-14-2018 End: 07-14-2018 Telephone encounter Pretty Luu Work Phone: [facility] Comment on above: Insurance Start: 07-12-2018 End: 07-12-2018 Patient encounter procedure Nathalie Esthela Brian Work Phone: [facility] PROMOTIONS REPRESENTATIVE Comment on above: ERRONEOUS ENCOUNTER- -DISREGARD (Primary Dx) Start: 07-06-2018 End: 07-06-2018 Telephone encounter Rodolfo Maldonado [facility] Comment on above: Lab Review Start: 06-16-2018 End: 06-16-2018 [facility]: Other Start: 06-01-2018 End: 06-01-2018 Office outpatient visit 15 minutes Nathalie Brian Work Phone: [facility] PROMOTIONS REPRESENTATIVE Comment on above: Pre-conception couns eling (Primary Dx); Hirsutism Start: 05-25-2018 End: 05-25-2018 Initial preventive medicine new pt age 18-39yrs Pretty Luu Work Phone: [facility] Comment on above: Wellness examination (Primary Dx) Procedures Date Procedure Procedure Detail Performing Clinician Start: 12-11-2024 Urine culture No Primar y Care Physician Start: 12-08-2021 Ultrasound scan for growth No Primary Care Physician Start: 05-28-2021 Urine culture WAREHOUSE PERSON-C Meche y Damian WAREHOUSE PERSON Work Phone: Start: 03-28-2020 Narrative [Interpretation] Study observation general US Bertha Hayden Work Phone: Start: 03-05-2020 Antibody screen Comment on above: Performed By: #### R ESCRN #### Testing performed at [address] [address] Start: 03-05-2020 Antibody rubella Bertha Hayden Work Phone: Start: 03-05-2020 Antibody screen Bertha Hayden Work Phone: Start: 03-05-2020 Antibody varicella-zoster Bertha Hayden Work Phone: Start: 03-05-2020 Assay of thyroid sti mulating hormone tsh Bertha Hayden Work Phone: Start: 03-05-2020 Blood typing serologic abo Bertha Hayden Work Phone: Start: 03-05-2020 Complete blood count with white cell differential, automated Bertha Hayden Work Phone: Start: 03-05-2020 Culture bacterial qu anttative colony count urine Bertha Hayden Work Phone: Start: 03-05-2020 Iaad ia hepatitis b surface antigen Bertha Hayden Work Phone: Start: 03-05-2020 RAPID TOX SCREEN WIT H [facility] Bertha Hayden Work Phone: Start: 03-05-2020 Syphilis test non-tr eponemal antibody qual Bertha Hayden Work Phone: Start: 02-28-2020 Choriogonadotropin ( test) [Presence] in Urine Hollis Rosales Work Phone: Start: 02-07-2019 Transvaginal ultraso nography of pelvis Katherine Murdock Work Phone: Start: 01-30-2019 Choriogonadotropin ( test) [Presence] in Urine Katherine Murdock Work Phone: [facility] Streptococcus Culture No Primary Care Physician Viral antigen assay No Prima ry Care Physician Plan of Treatment Date Care Activity Detail Author Start: 07-14-2028 Tetanus vaccination [facility]ETANUS [facility] Start: 07-01-2026 Tetanus vaccination TETANUS [facility] Start: 11-30-2024 Hepatitis C antibody measurement [facility] Start: 11-30-2024 Procedure [facility] Start: 11-30-2024 Rubella IgG measurement [facility] Start: 11-30-2024 Serologic test for syphilis [facility] Start: 11-30-2024 [facility] Start: 12-30-2021 Patient discharge [facility] Work Phone: Start: 12-29-2021 Administration of medication [facility] Work Phone: Start: 12-29-2021 Application of ice collar, cap or bag [facility] Work Phone: Start: 12-29-2021 Catheterization of vein [facility] Work Phone: Start: 12-29-2021 Introduction of urin santos catheter [facility] Work Phone: Start: 12-29-2021 Measuring intake and output [facility] Work Phone: Start: 12-29-2021 Notification of physician [facility] Work Phone: Start: 12-29-2021 Procedure discontinued [facility] Work Phone: Start: 12-29-2021 Provision of activit y privileges [facility] Work Phone: Start: 12-29-2021 Vital signs measurements [facility] Work Phone: Start: 12-29-2021 [facility] Work Phone: Start: 12-29-2021 Admission procedure Nazario ster [facility] Work Phone: Start: 10-29-2021 [place] [facility] Work Phone: Start: 11-13-2020 Influenza vaccination INFLUENZA VACC INE (#1) [facility] Start: 04-04-2020 End: 04-04-2020 Follow Up Visit 04/04/2020 Follow Up Visit PROMOTIONS REPRESENTATIVE Adrian Schulz MD [address] [place] [address] [facility] PROMOTIONS REPRESENTATIVE Start: 03-28-2020 End: 03-28-2020 Appointment [facility] Start: 03-05-2020 End: 03-05-2021 Narrative [Interpretation] Study observation general US US OB DATING ABDOMINAL < 14WEEKS Imaging Routine 8 weeks gestation of Expected: 03/05/2020, Expires: 03/05/2021 [facility] Comment on above: Expected: 03/05/2020 , Expires: 03/05/2021 Start: 03-05-2020 End: 03-05-2020 Clinical Support Encounter 03/05/2020 Clinical Support Encounter PROMOTIONS REPRESENTATIVE Hollis Rosales MD [address] [place] [id number] [facility] PROMOTIONS REPRESENTATIVE Start: 11-14-2019 Influenza vaccination INFLUENZA VACC INE (#1) [facility] Start: 07-28-2019 Screening for malign ant neoplasm of cervix CERVICAL CANCER SCREENING DISCUSSION [facility] Start: 02-27-2019 End: 02-27-2019 Office Visit 02/27/2019 Office Visit PROMOTIONS REPRESENTATIVE Katherine Murdock, [address] [address] [phone] [facility] PROMOTIONS REPRESENTATIVE [facility] Start: 01-30-2019 End: 01-31-2020 PROGESTERONE PROGESTERONE Lab Routine Irregular menses Expected: 01/30/2019, Expires: 01/31/2020 [facility] Comment on above: Expected: 01/30/2019 , Expires: 01/31/2020 Start: 01-30-2019 End: 01-31-2020 Transvaginal ultrasonography of pelvis US TRANSVAGINAL LIMITED Imaging Routine Irregular menses Expected: 01/30/2019, Expires: 01/31/2020 [facility] Comment on above: Expected: 01/30/2019 , Expires: 01/31/2020 Start: 11-13-2018 Influenza vaccination A [employer] Start: 07-28-2018 End: 07-28-2018 Office Visit 07/28/2018 Office Visit PROMOTIONS REPRESENTATIVE Nathalie Brian, DO [address] [place] [address] [phone] [facility] PROMOTIONS REPRESENTATIVE Start: 07-14-2018 End: 07-14-2018 Office Visit [facility] Comment on above: Arrived Start: 07-12-2018 End: 07-12-2018 Office Visit 07/12/2018 Office Visit PROMOTIONS REPRESENTATIVE Nathalie Brian, DO [address] [place] [address] [phone] [facility] PROMOTIONS REPRESENTATIVE Start: 06-01-2018 End: 06-02-2019 ESTRADIOL, ENHANCED ESTRADIOL, ENHANCED Lab Routine Hirsutism Expected: 06/01/2018, Expires: 06/02/2019 [facility] Comment on above: Expected: 06/01/2018 , Expires: 06/02/2019 Start: 06-01-2018 End: 06-02-2019 Hemoglobin A1c/Hemoglobin.total mass fraction (Bld) HEMOGLOBIN A1C Lab Routine Hirsutism Expected: 06/01/2018, Expires: 06/02/2019 [facility] Comment on above: Expected: 06/01/2018 , Expires: 06/02/2019 Start: 06-01-2018 End: 06-02-2019 INSULIN INSULIN Lab Routine Hirsutism Expected: 06/01/2018, Expires: 06/02/2019 [facility] Comment on above: Expected: 06/01/2018 , Expires: 06/02/2019 Start: 06-01-2018 End: 06-02-2019 PROLACTIN PROLACTIN Lab Routine Hirsutism Expected: 06/01/2018, Expires: 06/02/2019 [facility] Comment on above: Expected: 06/01/2018 , Expires: 06/02/2019 Start: 06-01-2018 End: 06-02-2019 Testosterone mass conc TESTOSTERONE Lab Routine Hirsutism Expected: 06/01/2018, Expires: 06/02/2019 [facility] Comment on above: Expected: 06/01/2018 , Expires: 06/02/2019 Start: 06-01-2018 End: 06-01-2018 Office Visit 06/01/2018 Office Visit PROMOTIONS REPRESENTATIVE Nathalie Brian, DO [address] [place] [address] [phone] [facility] PROMOTIONS REPRESENTATIVE Start: 05-25-2018 End: 05-26-2019 CBC,PLATELETS CBC,PLATELETS Lab Routine Wellness examination Expected: 05/25/2018, Expires: 05/26/2019 [facility] Comment on above: Expected: 05/25/2018 , Expires: 05/26/2019 Start: 05-25-2018 End: 05-26-2019 Comprehensive metabolic 2000 panel COMPREHENSIVE METABOLIC PANEL Lab Routine Wellness examination Expected: 05/25/2018, Expires: 05/26/2019 [facility] Comment on above: Expected: 05/25/2018 , Expires: 05/26/2019 Start: 05-25-2018 End: 05-26-2019 LIPID PANEL W CALCULATED LDL LIPID PANEL W CALCULATED LDL Lab Routine Wellness examination Expected: 05/25/2018, Expires: 05/26/2019 [facility] Comment on above: Expected: 05/25/2018 , Expires: 05/26/2019 Start: 05-25-2018 End: 05-26-2019 TSH W/FT4 REFLEX TSH W/FT4 REFLEX Lab Routine Wellness examination Expected: 05/25/2018, Expires: 05/26/2019 [facility] Comment on above: Expected: 05/25/2018 , Expires: 05/26/2019 Start: 05-25-2018 End: 05-26-2019 URINALYSIS, MACRO URINALYSIS, MACRO Fluids Routine Wellness examination Expected: 05/25/2018, Expires: 05/26/2019 [facility] Comment on above: Expected: 05/25/2018 , Expires: 05/26/2019 Start: 11-13-2017 Influenza vaccination INFLUENZA VACC INE (#1) [facility] Start: 2006 Screening for malign ant neoplasm of cervix [facility] Start: 1990 COVID-19 VACCINE (1) COVID-19 VACCIN E (1) [facility] Start: 1985 Hepatitis C antibody , confirmatory test HEPATITIS C VIRUS SCREENING [facility] PREMA CYTOLOGY-VAULT MAKER, LI QUID BASED [facility] CYTOLOGY-VAULT MAKER, LIQUID BASED Cytology Routine Screening for cervical cancer Ordered: 07/27/2018 [facility] Comment on above: Ordered: 07/27/2018 Bacteria identified Cx Nom (U) URINE CULTURE Microbiology Routine 8 weeks gestation of 03/05/2020 2:25 PM [facility] CBC W Auto Different ial panel - Blood [facility] anatomy study [facility] Work Phone: Hemoglobin A1c/Hemoglobin.total in Blood [facility] HEPATITIS B SURFACE ANTIGEN HEPATITIS B SURFACE ANTIGEN Lab Routine 8 weeks gestation of 03/05/2020 2:25 PM [facility] Patient Education After a Vaginal [facility] Work Phone: Patient referral [facility] Work Phone: Reagin Ab RPR Ql (S) RPR Lab Rou elsy 8 weeks gestation of 03/05/2020 2:25 PM [facility] RUBELLA IMMUNE STATU S IGG ANTIBODY RUBELLA IMMUNE STATUS IGG ANTIBODY Lab Routine 8 weeks gestation of 03/05/2020 2:25 PM [facility] Streptococcus agalac tiae [Presence] in Unspecified specimen by Organism specific culture [facility] Work Phone: Ultrasound scan for growth [facility] Work Phone: VARICELLA IGG AB (IM M STATUS) VARICELLA IGG AB (IMM STATUS) Lab Routine 8 weeks gestation of 03/05/2020 2:25 PM [facility] Immunizations Immunization Date Immunization Notes Care Provider Fa lauren 08-12-2018 varicella virus vaccine; Translations: [VARICELLA VACCINE LIVE 0.5ML SC] [facility] Nurse [facility] 08-12-2018 varicella zoster imm une globulin [facility] Nurse [facility] 07-14-2018 diphtheria, tetanus toxoids and acellular pertussis vaccine, unspecified formulation [facility] 07-14-2018 hepatitis B vaccine, adult dosage [facility] 07-14-2018 hepatitis B vaccine, unspecified formulation [facility] 07-14-2018 measles, mumps and rubella virus vaccine [facility] 07-14-2018 tetanus toxoid, redu partha diphtheria toxoid, and acellular pertussis vaccine, adsorbed [facility] 07-14-2018 varicella virus vaccine [facility] 07-14-2018 varicella zoster imm une globulin [facility] 07-01-2016 tetanus toxoid, redu partha diphtheria toxoid, and acellular pertussis vaccine, adsorbed [facility] Payers Date Payer Category Payer Unknown [id number] 2024 Self-pay [id number] 2020 Unknown [employer] [id number] 2020-Present [address] [address] [place] [address] [id number] 2018 Unknown GENERIC PAYOR [employer]AN xxxxxxxxx 2018-Present xxxxxxxxx [id number] 2015 Unknown MEDICAL M[employer] M MO xxxxxxxxxxxx 2015-Present xxxxxxxxxxxx [id number] Unknown [id number] Unknown [id number] Unknown [id number] Unknown [id number] Unknown [id number] Social History Date Type Detail Facility Start: 05-27-2018 End: 11-30-2024 Tobacco smoking status NHIS Never smoker [facility] Start: 1985 Sex Assigned At Not on file A [facility] Start: 01-30-2019 End: 04-22-2021 Alcohol intake Current drinker of alcohol (finding) [facility] Start: 01-30-2019 Alcohol Comment rarely [facility] Start: 04-22-2016 End: 02-28-2020 Tobacco use and exposure Never used [facility] Start: 02-28-2020 End: 03-28-2020 Alcohol intake Ex-drinker (finding) [facility] Start: 02-28-2020 End: 04-04-2020 History SDOH Social Connections Phone 2 [facility] Start: 02-28-2020 End: 04-04-2020 History SDOH Social Connections Living 3 [facility] Start: 01-18-2020 [facility] Exposure to SARS-CoV -2 (event) Not sure [facility] Start: 05-28-2021 End: 12-29-2021 Tobacco smoking status NHIS Unknown if ever smoked [facility] Work Phone: Start: 1985 Sex Assigned At Female [facility] Sex Female [facility] Medical Equipment Procedure Code Equipment Code Equipment Origin al Text Equipment Identifier Dates Blood Sugar Diagnostic (True Metrix Glucose Test Strip) strip Start: 10-29-2021 Blood Sugar Diagnostic (True Metrix Glucose Test Strip) strip Start: 10-29-2021 Blood Sugar Diagnostic (True Metrix Glucose Test Strip) strip Start: 10-29-2021 Blood Sugar Diagnostic (True Metrix Glucose Test Strip) strip Start: 10-29-2021 Blood Sugar Diagnostic (True Metrix Glucose Test Strip) strip Start: 10-29-2021 Blood Sugar Diagnostic (True Metrix Glucose Test Strip) strip Start: 10-29-2021 End: 02-16-2022 Blood Sugar Diagnostic (True Metrix Glucose Test Strip) strip Start: 10-29-2021 End: 02-16-2022 Blood Sugar Diagnostic (True Metrix Glucose Test Strip) strip Start: 10-29-2021 End: 02-16-2022 Goals Date Patient Goal Desired Activity /State Clinical Notes 04-22-2021 to 12-19-2024 Note Date & Type Note Facility 12-19-2024 Progress note [facility] 12-14-2024 Progress note [facility] 12-11-2024 Evaluation note Diagnosis Onset Date Resolution Advanced maternal age (AMA) in acute November 10:41am History of gestational diabetes mellitus (GDM) in prior , currentl acute December 11, 2024 10:41am Hx of one miscarriage acute Nov 10:41am acute November 10:41am Supervision of high-risk acute December 112024 10:41am Threatened acute 2024 10:41am Advanced maternal age (AMA) in acute December 14, 2024 8:07am History of gestational diabetes mellitus (GDM) in prior , currentl acute December 14 8:07am Hx of one miscarriage acute Dec 8:07am acute December 14, 8:07am Supervision of high-risk acute December 14, 2024 8:07am Threatened acute Decob er 2024 8:07am [facility] Work Phone: 1(670) 432-126809-29-2025 Evaluation note* Diagnosis Onset Date Resolution Status Admit Date Advanced maternal age (AMA) in resolved December 11, 2024 10:41am History of gestational diabetes mellitus (GDM) in prior , currentl resolved Septem vera 2024 10:41am Hx of one miscarriage resolved Nov 10:41am resolved November 10:41am Supervision of high-risk resolved December 11, 2024 10:41am Threatened resolved 2024 10:41am Advanced maternal age (AMA) in resolved December 14 8:07am History of gestational diabetes mellitus (GDM) in prior , currentl resolved Octobe r 2024 8:07am Hx of one miscarriage resolved Dec chela2024 8:07am Missed resolved December 142024 8:07am resolved December 14 8:07am Supervision of high-risk resolved December 14 8:07am Threatened resolved 2024 8:07am [facility] Work Phone: 1(287) 442-921209-29-2025 Progress [facility] [address], [address] [place] [address] OFFICE VISIT Date of Service: 12/11/24 MR#: [id number] Acct: [id number] Name: YURIDIA RUSH Rep #: [id number] : 1985 Provider: Dr. 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 Is patient in pain?: No Allergies No Known Allergies Allergy (Verified 12/11/24 10:42) Medications ?Medication ?Instructions ?Recorded ?Confirmed ?Type calcium 400 mg (as tab PO 11/30/24 11/30/24 His tory carbonate)-magnesium 117 mg-vit C 167 mg tablet multivitamin no.47-iron fum 27 cap PO 11/30/24 5 History mg-folate no.1 1 mg-dha 300 mg capsule (PNV-DHA) Last Menstrual Period: 10/12/24 Zika: Zika virus screening: Negative : No Have you fallen in the past year?: No PFSH PFSH Medical History FH: liver cancer FH: colon cancer Vaginal delivery Infertility macrosomia Gestational diabetes History of PCOS Family History Grandfather Colon cancer, Onset Age: 80 Paternal Maternal Grandmother Cancer, Onset Age: 80 Liver Social History adopted: No household members: spouse and children housing: house number of children: 2 service: No current occupational status: employed and unemployed current occupation: [employer] current occupational exposures/hazards: No pets and animals: No history of recent travel: Yes (Jn September) out of state: Yes out of country: Yes sexually active: Yes Smoking Status: Never smoker alcohol intake: current alcohol intake frequency: holidays/special occasions only details: not while substance use type: does not use diet: diabetic well-balanced diet: daily or most days caffeine: Yes Type: coffee Number of servings: 1 and tea Number of servings: 1 eating out: 4 or more times/week during the past year weight has: remained stable what type of physical activity do you participate in: walking frequency: 1-2 times per week duration: 15-30 minutes/day richard/taoism: Gnosticist seatbelt use: always do you feel safe at home: Yes additional social history: -[facility] History 4 Elective abortions Hx Para 2 Spontaneous abortions 1 Hx # Term Pregnancies Ectopic pregnancies Hx # Pregnancies Multiple births # of living children 2 Past Pregnancies Del. Date Name GA/Weeks Outcome Route Bth Weight Infant Gen Labor Lgth Anesthesia Del Locatn Provider FOB Unknown Mar 2020 spontaneous 08/07/16 [place] 40 live - full term 10#5oz Female 8 hr non e Zina Santiago 12/29/21 [place] 39 live - full term 8#5oz Female epi dural [facility] Patricia Camarillo Delivery Date: Last Updated by: Brianna Salgado NP, WAREHOUSE PERSON-C no intervention Delivery Date: 08/07/16 Last Updated by: Brianna Salgado NP, WAREHOUSE PERSON-C IOL, nonreactive NST. Delivery Date: 12/29/21 Last Updated by: Pily Gonzalez see problem list for complications, and IOL GDMA1 ama girl [facility]. HPI *EST* NOB: LMP 10/12, LELA 07/19 Details: YURIDIA RUSH is a 39 year old who presents for New OB visit. some spotting last week. no cramping doesn't have a lot of symptoms. CRL 3.6mm andGS 19-21 mm. no fht seen. OB Visit LELA Calculator Estimated Delivery Date Method Current WG Current Estimate 07/19/25 LMP (Certain) 8w 4d Comments: HIV: Urine Culture: Sequential Screen: NIPT Screen: Estimated Due Date: 07/19/25 Expected Delivery Route/Plan Labor Preferences- CB/BF classes: [] labor support person: [] labor intervention preferences: [] pain management options preferred: [] cut cord/dad catch: [] : [] PP control planned: [] discussed possible routes of delivery and associated risks: [] special requests: [] Specific Issue/Plans Covid status: [] Flu vaccine: [] Tdap vaccine: [] Rhogam: [] LARC form signed: [] Problem list reviewed and updated with the most current plan of care details and appropriate ordersplaced. Relevant counseling for the gestational age provided. Continue routine care and follow up unless otherwise noted in visit notes/problem list details Menstrual History Last Menstrual Period: 10/12/24 Reported LMP: definite Normal amount/duration: Yes On hormonal BC at conception: No Antepartum Record Genetic Screening: Congenital Heart Defect: Other, Neural Tube Defect: Other, Hemoglobinopathy Or Carrier: Other, Cystic Fibrosis: Other, Chromosome Abnormality: Other, Jordy-Sachs: Other, Hemophilia: Other, Intellectual Disability/Autism: Other, Recurrent Loss/Stillbirth: Other, Other Structural Defect: Other, Other Genetic Disease: Other and Maternal Metabolic Disorder: Other Infection History: Live with someone with TB or Exposed to TB: No, Patient or Partner has history of Genital Herpes: No, Rash or Viral illness since last mentrual period: No, Prior GBS-Infected child: No, History of STD: No, HIV Infection: No, History of Hepatitis: No, Recent travel outside of [place]: No, Concern for hepatitis exposure: No, Varicella immune: Yes (immune) and Covid Vaccinated: No Medical History Medical History: Negative: Diabetes, Hypertension, Heart disease, Auto-immune disorder, Kidney disease/UTI, Neurologic/epilepsy, Psychiatric, Depression/ depression, Hepatitis/liver disease, Varicosities/phlebitis, Thyroid dysfunction, Trauma/domestic violence, History of blood transfusions, D (Rh) Sensitized, Pulmonary (e.g.,TB,Asthma), Seasonal allergies, Drug/latex allergies/reactions, Breast, Arts Therapist surgery, Operations/hospitalizations, Anesthetic complications, History of abnormal pap, Uterine anomaly/dalila, Infertility, Anti-retroviral treatment, Relevant family history and Other ACOG First Trimester First Trimester: Desire for , Alcohol, Tobacco Cessation, Illicit/Recreational Drug/Substance Use, Intimate Partner Violence, Barriers to care, Unstable Housing, Communication Barriers, Environmental/Work Hazards, Anticipated Course of Care, Nurtrition and weight gain, Toxoplasmosis Precations, Use of Any medications, Sexual activity, Exercise, Dental Care, Sauna/Hot tub use, Seat Belt use, Childbirth classes/Hospital facilities, Travel, Indications for Ultrasound and Screening for Aneuploidy; Discussed Second Trimester Second Trimester: Signs and Symptoms of Labor, Selecting a care provider, Reproductive Life Planning & Contreception, Care Planning, Depression/Anxiety and Intimate Partner Violence; Discussed Tobacco Cessation Third Trimester Third Trimester: Pain Management Plans, Labor support person(s), Immediate Larc, Signs and Symptoms of Preeclampsia, Infant Feeding No and Family Medical Leave or Disability Forms ROS Const Reports system reviewed and no additional complaints, except as documented, Reports fatigue and Denies fever(s) Eyes Reports system reviewed and no additional complaints, except as documented ENT Reports system reviewed and no additional complaints, except as documented Card Denies chest pain and Denies dyspnea Resp Reports system reviewed and no additional complaints, except as documented, Denies cough and Deniesdyspnea GI Denies abdominal pain and Reports nausea Reports system reviewed and no additional complaints, except as documented Musc Reports system reviewed and no additional complaints, except as documented Skin/Breast Reports system reviewed and no additional complaints, except as documented Neuro Yes system reviewed and no additional complaints, except as documented Psych Reports system reviewed and no additional complaints, except as documented Endo Reports system reviewed and no additional complaints, except as documented and Reports fatigue Exam Const General: healthy appearing, comfortable and no acute distress Orientation: alert [facility] Head: normal to inspection, normocephalic and atraumatic Ears: hearing grossly normal bilaterally and external ears normal Nose: external nose normal and nares normal Mouth: oral mucosae normal Teeth and gingiva: dentition normal Eyes General: appearance normal, both eyes and all related structures Neck Neck: normal visual inspection, no lymphadenopathy and supple Thyroid: thyroid normal Chest Chest palpation & inspection: normal inspection of the chest Breast inspection: normal inspection of the breasts and normal inspection of the axillae Breast palpation: normal palpation of the breasts and normal palpation of the axillae Resp Effort & Inspection: normal respiratory effort GI Inspection: normal to inspection Palpation: soft and no hepatosplenomegaly General: bladder normal to palpation External Female Exam: normal external appearance and normal appearance of the urethra Urethra: normal appearance of the urethra Speculum Exam - Vagina: normal appearance of the vagina and normal vaginal discharge Speculum Exam - Cervix: normal appearance of the cervix Bimanual Exam- Vagina & Uterus: normal bimanual exam, bladder normal to palpation, non-tender and other Bimanual Exam- Adnexa, other: non-tender Skin General: no rashes or lesions noted Neuro Motor: muscle tone normal throughout and no movement abnormalities noted Extrem General: normal to inspection and full ROM Supplemental Info ACOG book given and patient encouraged to read about nutrition, exercise, weight gain, and food avoidance in . Coding Level of Care Code Off vis,est,level 4 Diagnoses Hx of one miscarriage Z87.59 Advanced maternal age (AMA) in Supervision of high-risk O09.90 8 weeks gestation of Z3A.08 Weeks of gestation: 8 weeks History of gestational diabetes mellitus (GDM) in prior , currently O09.299; Z86.32 Threatened O20.0 Assessment and Plan Assessment and Plan (1) Hx of one miscarriage: Status: Acute Comment: 2020 (2) Advanced maternal age (AMA) in : Status: Acute (3) Supervision of high-risk : Status: Acute Comment: , LELA 07/19/25, Elisa Muro, Santiago austin by Johny (4) : Status: Acute Qualifiers: Weeks of gestation: 8 weeks Qualified Code(s): Z3A.08 - 8 weeks gestation of Comment: elects NIPT with gender & carrier testing (5) History of gestational diabetes mellitus (GDM) in prior , currently : Status: Acute (6) Threatened : Status: Acute Comment: GS measuring 19-21 mm, CRL 3.6mm no FHT. 6 weeks. reviewed bleeding precautions, fu repeatscan. Orders: Orders CBC W/Diff, Automated 11/30/24 O09. - Supervision of high risk , unspecified, unspecified trimester Type & Screen 11/30/24 O09. - Supervision of high risk , unspecified, unspecified trimester Rubella IgG 11/30/24 O09. - Supervision of high risk , unspecified, unspecified trimester Hepatitis C Antibody 11/30/24 O09.90 - Supervision of high risk , unspecified, unspecifiedtrimester Hepatitis B Surface Antigen 11/30/24 O09.90 - Supervision of high risk , unspecified, unspecified trimester Culture, Urine 11/30/24 O09.90 - Supervision of high risk , unspecified, unspecified trimester Syphilis Antibodies 11/30/24 O09.90 - Supervision of high risk , unspecified, unspecified trimester Chlamydia/GC HARIS aptima 11/30/24 O09.90 - Supervision of high risk , unspecified, unspecified trimester HIV 11/30/24 O09.90 - Supervision of high risk , unspecified, unspecified trimester Hemoglobin A1c 11/30/24 O09.299 - Supervision of with other poor reproductive or obstetric history, unspecified trimester, O09.90 - Supervision of high risk , unspecified, unspecified trimester, Z86.32 - Personal history of gestational diabetes OTIS 11/30/24 O09.90 - Supervision of high risk , unspecified, unspecified trimester Plan fu on for repeat scan. Clinical Quality Measures Falls Risk Screening/Assistive Devices Have you fallen in the past year?: No 12/11/24 1117 sis CHAVEZ> Date _ Patricia Camarillo MD Cosigner Signature: Date (if applicable) CC: ~ [facility]03-16-2022 NotePap Smear Specimen AdequacyMarch 2021 1:21pmCommentSatisfactory for evaluation. Endocervical and/or squamous metaplasticcells (endocervical component)are present.[facility] A#[id number] Work Phone: Comment on above:Satisfactory for evaluation. Endocervical and/or squamous metaplasticcells (endocervical component)are present.05-28-2021 NotePap Smear Specimen AdequacyMarch 2021 1:21pmComment Satisfactory for evaluation. Endocervical and/or squamous metaplasticcells (endocervical component)are present.[facility] A#[id number] Work Phone: Comment on above:Satisfactory for evaluation. Endocervical and/or squamous metaplasticcells (endocervical component)are present.04-22-2021 History of Present illness Narrative* Catalino Linda Jr., DO - 04/22/2021 1:30 PM EST Office consultation Date and Time: April 22, 2021 4:17 PM Patient Demographics: Yuridia Rush female 1985 Wt Readings from Last 1 Encounters: 04/04/20 87.2 kg (192 lb 3.2 oz) Chief Complaint: 35-year-old female patient here regarding family history of colon cancer possible screening evaluation, Patient reports history of grandfather and uncle on father's side with colon neoplasm in a 33-year-old sister with multiple colonic polyps noncancerous, Patient reports personal long history of constipation and intermittent variability of stool consistent with IBS including increased symptoms with dairy products occasional skyballous stools and variability, No previous history of imaging and/or endoscopy, Patient denies fevers chills or night sweats no melena and/or hematochezia no significant weight loss, Patient also reports swallowing inadvertently bay [place] and having a foreign body sensation in her upper throat which is persistent for 1-2 months, We discussed structural versus functional bowel disorders, We discussed ASGE recommendations for colon cancer screening and surveillance based on age family history personal history and ethnicity, We discussed with risk benefit ratio of endoscopic procedures potential complications and potentialoutcomes, Smoking Status Never Smoker Past Medical History: Diagnosis Date History of infertility History of PCOS No past surgical history on file. 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 Tobacco Use Smoking status: Never Smoker Smokeless tobacco: Never Used Vaping Use Vaping Use: Never used Substance and Sexual Activity Alcohol use: Yes Comment: rarely Drug use: Never Sexual activity: Yes Partners: Male control/protection: None Other Topics Concern Service Not Asked Blood Transfusions Not Asked Caffeine Concern Not Asked Occupational Exposure Not Asked Hobby Hazards Not Asked Sleep Concern Not Asked Stress Concern Not Asked Weight Concern Not Asked Special Diet Not Asked Back Care Not Asked Exercise Not Asked Bike Helmet Not Asked Seat Belt Not Asked Domestic Violence No Social History Narrative Not on file Social Determinants of Health Financial Resource Strain: Not on file Food Insecurity: Not on file Transportation Needs: Not on file Physical Activity: Not on file Stress: Not on file Social Connections: Not on file Intimate Partner Violence: Not on file Housing Stability: Not on file Current Outpatient Medications: calcium-vitamin D 500-200 MG-UNIT Tab tablet, Take 1 tablet by mouth daily., Disp: , Rfl: Magnesium 200 MG tablet, Take by mouth., Disp: , Rfl: PREBIOTIC PRODUCT PO, Take by mouth., Disp: , Rfl: MV-Min-Fe Fum-FA-DHA ( 1 PO), Take by mouth., Disp: , Rfl: Acetylcysteine (NAC PO), Take by mouth. (Patient not taking: Reported on 04/22/2021), Disp: , Rfl: loratadine (CLARITIN) 10 MG Tab tablet, Take 1 tablet by mouth daily for 10 days., Disp: 10 tablet,Rfl: 0 Patient has no known allergies. ROS: Cardiovascular-no reported chest discomfort or shortness of breath Respiratory-no coughing or sputum production Gastrointestinal-as per chief complaint Extremities-no gross edema deformity or dysfunction Neurologic-no focal deficits or seizure Physical Exam: Alert lady no gross apparent distress to evaluation no obvious skin lesions no gross secondary characteristics liver disease Cardiovascular-no JVD intact. Exam Respiratory-no coughing or sputum production Abdomen-soft mildly obese nontender Extremities-no gross edema deformity or dysfunction Neurologic-no focal deficits Assessment: Probable IBS Family history second and third degree relatives with colon neoplasm First-degree relative with colonic polyps Anxiety disorder Possible esophageal foreign body Plan: Consider anti-IBS regimen EGD colonoscopy based on symptomatology Further recommendations pending results [facility] Diagnosis Irritable bowel syndrome with diarrhea- Primary Irritable bowel syndrome Constipation, unspecified constipation type Foreign body (FB) in soft tissue Residual foreign body in soft tissue Foreign body in esophagus, initial encounter documented [facility] Diagnosis Onset Date Resolution Status acute Supervision of other normal acute [facility] Work Phone: Evaluation note* Diagnosis Onset Date Resolution Status acute Supervision of other normal acute acute Supervision of other normal acute [facility] Work Phone: Evaluation note* Diagnosis Onset Date Resolution Status AMA (advanced maternal age) multigravida 35+ acute acute Supervision of high-risk acute AMA (advanced maternal age) multigravida 35+ acute acute Supervision of high-risk acute AMA (advanced maternal age) multigravida 35+ acute acute Supervision of high-risk acute Abnormal glucose affecting acute AMA (advanced maternal age) multigravida 35+ acute acute Supervision of high-risk acute Abnormal glucose affecting acute AMA (advanced maternal age) multigravida 35+ acute acute Supervision of high-risk acute [facility] Work Phone: Evaluation note* Diagnosis Onset Date Resolution Status AMA (advanced maternal age) multigravida 35+ acute acute Supervision of high-risk acute AMA (advanced maternal age) multigravida 35+ acute acute Supervision of high-risk acute AMA (advanced maternal age) multigravida 35+ acute acute Supervision of high-risk acute Abnormal glucose affecting acute AMA (advanced maternal age) multigravida 35+ acute acute Supervision of high-risk acute Abnormal glucose affecting acute AMA (advanced maternal age) multigravida 35+ acute acute Supervision of high-risk acute Gestational diabetes chronic Gestational diabetes mellitus noneactive [facility] Work Phone: Evaluation note* Diagnosis Onset Date Resolution Status AMA (advanced maternal age) multigravida 35+ acute acute Supervision of high-risk acute AMA (advanced maternal age) multigravida 35+ acute acute Supervision of high-risk acute Abnormal glucose affecting acute AMA (advanced maternal age) multigravida 35+ acute acute Supervision of high-risk acute Abnormal glucose affecting acute AMA (advanced maternal age) multigravida 35+ acute acute Supervision of high-risk acute Gestational diabetes chronic Gestational diabetes mellitus noneactive Abnormal glucose affecting acute AMA (advanced maternal age) multigravida 35+ acute acute Supervision of high-risk acute Gestational diabetes chronic Abnormal glucose affecting acute AMA (advanced maternal age) multigravida 35+ acute acute Supervision of high-risk acute Gestational diabetes chronic Abnormal glucose affecting acute AMA (advanced maternal age) multigravida 35+ acute acute Supervision of high-risk acute Gestational diabetes chronic [facility] Work Phone: Evaluation note* Diagnosis Onset Date Resolution Status AMA (advanced maternal age) multigravida 35+ resolved resolved Supervision of high-risk resolved Abnormal glucose affecting resolved AMA (advanced maternal age) multigravida 35+ resolved resolved Supervision of high-risk resolved Abnormal glucose affecting resolved AMA (advanced maternal age) multigravida 35+ resolved resolved Supervision of high-risk resolved Gestational diabetes mellitus noneactive Abnormal glucose affecting resolved AMA (advanced maternal age) multigravida 35+ resolved resolved Supervision of high-risk resolved Abnormal glucose affecting resolved AMA (advanced maternal age) multigravida 35+ resolved resolved Supervision of high-risk resolved Abnormal glucose affecting resolved AMA (advanced maternal age) multigravida 35+ resolved resolved Supervision of high-risk resolved Abnormal glucose affecting resolved AMA (advanced maternal age) multigravida 35+ resolved resolved Supervision of high-risk resolved AMA (advanced maternal age) multigravida 35+ resolved resolved Supervision of high-risk resolved Abnormal glucose affecting resolved AMA (advanced maternal age) multigravida 35+ resolved resolved Supervision of high-risk resolved [facility] Work Phone: Evaluation note* Diagnosis Onset Date Resolution Status Admit Date Advanced maternal age (AMA) in acute December 11, 2024 10:41am History of gestational diabetes mellitus (GDM) in prior , currentl acute Sept2024 10:41am Hx of one miscarriage acute Sep 2024 10:41am acute November 10:41am Supervision of high-risk acute December 11, 2024 10:41am Threatened acute Septe mber 2024 10:41am [facility] Work Phone: Progress note Author Patricia Camarillo [facility] Note Date/Time December 11, 2024 11:17am [facility] [address] [place] [address], [address] [place] [address] OFFICE VISIT Date of Service: 12/11/24 MR#: [id number] Acct: [id number] Name: YURIDIA RUSH Rep #: [id number] : 1985 Provider: Dr. 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 Is patient in pain?: No Allergies No Known Allergies Allergy (Verified 12/11/24 10:42) Medications ?Medication ?Instructions ?Recorded ?Confirmed ?Type calcium 400 mg (as tab PO 11/30/24 11/30/24 His tory carbonate)-magnesium 117 mg-vit C 167 mg tablet multivitamin no.47-iron fum 27 cap PO 11/30/24 5 History mg-folate no.1 1 mg-dha 300 mg capsule (PNV-DHA) Last Menstrual Period: 10/12/24 Zika: Zika virus screening: Negative : No Have you fallen in the past year?: No PFSH PFSH Medical History FH: liver cancer FH: colon cancer Vaginal delivery Infertility macrosomia Gestational diabetes History of PCOS Family History Grandfather Colon cancer, Onset Age: 80 Paternal Maternal Grandmother Cancer, Onset Age: 80 Liver Social History adopted: No household members: spouse and children housing: house number of children: 2 service: No current occupational status: employed and unemployed current occupation: [employer] current occupational exposures/hazards: No pets and animals: No history of recent travel: Yes ([place] September) out of state: Yes out of country: Yes sexually active: Yes Smoking Status: Never smoker alcohol intake: current alcohol intake frequency: holidays/special occasions only details: not while substance use type: does not use diet: diabetic well-balanced diet: daily or most days caffeine: Yes Type: coffee Number of servings: 1 and tea Number of servings: 1 eating out: 4 or more times/week during the past year weight has: remained stable what type of physical activity do you participate in: walking frequency: 1-2 times per week duration: 15-30 minutes/day richard/taoism: Gnosticist seatbelt use: always do you feel safe at home: Yes additional [facility]: [facility] History 4 Elective abortions Hx Para 2 Spontaneous abortions 1 Hx # Term Pregnancies Ectopic pregnancies Hx # Pregnancies Multiple births # of living children 2 Past Pregnancies Del. Date Name GA/Weeks Outcome Route Bth Weight [facility] F[facility] Unknown Mar 2020 spontaneous 08/07/16 [place] 40 live - full term 10#5oz Female 8 hr non e Zina Santiago 12/29/21 [place] 39 live - full term 8#5oz Female epi dural [facility] Patricia Camarillo Delivery Date: Last Updated by: Brianna Salgado NP, WAREHOUSE PERSON-C no intervention Delivery Date: 08/07/16 Last Updated by: Brianna Salgado NP, WAREHOUSE PERSON-C IOL, nonreactive NST. Delivery Date: 12/29/21 Last Updated by: Pily Gonzalez see problem list for complications, and IOL GDMA1 ama girl [facility]. HPI *EST* NOB: LMP 10/12, LELA 07/19 Details: YURDIIA RUSH is a 39 year old who presents for New OB visit. some spotting last week. no cramping doesn't have a lot of symptoms. CRL 3.6mm andGS 19- 21 mm. no fht seen. OB Visit LELA Calculator Estimated Delivery Date Method Current WG Current Estimate 07/19/25 LMP (Certain) 8w 4d Comments: HIV: Urine Culture: Sequential Screen: NIPT Screen: Estimated Due Date: 07/19/25 Expected Delivery Route/Plan Labor Preferences- CB/BF classes: [] labor support person: [] labor intervention preferences: [] pain management options preferred: [] cut cord/dad catch: [] : [] PP control planned: [] discussed possible routes of delivery and associated risks: [] special requests: [] Specific Issue/Plans Covid status: [] Flu vaccine: [] Tdap vaccine: [] Rhogam: [] LARC form signed: [] Problem list reviewed and updated with the most current plan of care details and appropriate orders placed. Relevant counseling for the gestational age provided. Continue routine care and follow up unless otherwise noted in visit notes/problem list details Menstrual History Last Menstrual Period: 10/12/24 Reported LMP: definite Normal amount/duration: Yes On hormonal BC at conception: No Antepartum Record Genetic Screening: Congenital Heart Defect: Other, Neural Tube Defect: Other, Hemoglobinopathy Or Carrier: Other, Cystic Fibrosis: Other, Chromosome Abnormality: Other, Jordy-Sachs: Other, Hemophilia: Other, Intellectual Disability/Autism: Other, Recurrent Loss/Stillbirth: Other, Other Structural Defect: Other, Other Genetic Disease: Other and Maternal Metabolic Disorder: Other Infection History: Live with someone with TB or Exposed to TB: No, Patient or Partner has history of Genital Herpes: No, Rash or Viral illness since last mentrual period: No, Prior GBS-Infected child: No, History of STD: No, HIV Infection: No, History of Hepatitis: No, Recent travel outside of [place]: No, Concern for hepatitis exposure: No, Varicella immune: Yes (immune) and Covid Vaccinated: No Medical History Medical History: Negative: Diabetes, Hypertension, Heart disease, Auto-immune disorder, Kidney disease/UTI, Neurologic/epilepsy, Psychiatric, Depression/ depression, Hepatitis/liver disease, Varicosities/phlebitis, Thyroid dysfunction, Trauma/domestic violence, History of blood transfusions, D (Rh) Sensitized, Pulmonary (e.g.,TB,Asthma), Seasonal allergies, Drug/latex allergies/reactions, Breast, Arts Therapist surgery, Operations/hospitalizations, Anesthetic complications, History of abnormal pap, Uterine anomaly/dalila, Infertility, Anti-retroviral treatment, Relevant family history and Other ACOG First Trimester First Trimester: Desire for , Alcohol, Tobacco Cessation, Illicit/Recreational Drug/Substance Use, Intimate Partner Violence, Barriers to care, Unstable Housing, Communication Barriers, Environmental/Work Hazards, Anticipated Course of Care, Nurtrition and weight gain, Toxoplasmosis Precations, Use of Any medications, Sexual activity, Exercise, Dental Care, Sauna/Hot tub use, Seat Belt use, Childbirth classes/Hospital facilities, Travel, Indications for Ultrasound and Screening for Aneuploidy; Discussed Second Trimester Second Trimester: Signs and Symptoms of Labor, Selecting a care provider, Reproductive Life Planning & Contreception, Care Planning, Depression/Anxiety and Intimate Partner Violence; Discussed Tobacco Cessation Third Trimester Third Trimester: Pain Management Plans, Labor support person(s), Immediate Larc, Signs and Symptoms of Preeclampsia, Infant Feeding No and Family Medical Leave or Disability Forms ROS Const Reports system reviewed and no additional complaints, except as documented, Reports fatigue and Denies fever(s) Eyes Reports system reviewed and no additional complaints, except as documented ENT Reports system reviewed and no additional complaints, except as documented Card Denies chest pain and Denies dyspnea Resp Reports system reviewed and no additional complaints, except as documented, Denies cough and Denies dyspnea GI Denies abdominal pain and Reports nausea Reports system reviewed and no additional complaints, except as documented Musc Reports system reviewed and no additional complaints, except as documented Skin/Breast Reports system reviewed and no additional complaints, except as documented Neuro Yes system reviewed and no additional complaints, except as documented Psych Reports system reviewed and no additional complaints, except as documented Endo Reports system reviewed and no additional complaints, except as documented and Reports fatigue Exam Const General: healthy appearing, comfortable and no acute distress Orientation: alert [facility] Head: normal to inspection, normocephalic and atraumatic Ears: hearing grossly normal bilaterally and external ears normal Nose: external nose normal and nares normal Mouth: oral mucosae normal Teeth and gingiva: dentition normal Eyes General: appearance normal, both eyes and all related structures Neck Neck: normal visual inspection, no lymphadenopathy and supple Thyroid: thyroid normal Chest Chest palpation & inspection: normal inspection of the chest Breast inspection: normal inspection of the breasts and normal inspection of the axillae Breast palpation: normal palpation of the breasts and normal palpation of the axillae Resp Effort & Inspection: normal respiratory effort GI Inspection: normal to inspection Palpation: soft and no hepatosplenomegaly General: bladder normal to palpation External Female Exam: normal external appearance and normal appearance of the urethra Urethra: normal appearance of the urethra Speculum Exam - Vagina: normal appearance of the vagina and normal vaginal discharge Speculum Exam - Cervix: normal appearance of the cervix Bimanual Exam- Vagina & Uterus: normal bimanual exam, bladder normal to palpation, non-tender and other Bimanual Exam- Adnexa, other: non-tender Skin General: no rashes or lesions noted Neuro Motor: muscle tone normal throughout and no movement abnormalities noted Extrem General: normal to inspection and full ROM Supplemental Info ACOG book given and patient encouraged to read about nutrition, exercise, weight gain, and food avoidance in . Coding Level of Care Code Off vis,est,level 4 Diagnoses Hx of one miscarriage Z87.59 Advanced maternal age (AMA) in Supervision of high-risk O09.90 8 weeks gestation of Z3A.08 Weeks of gestation: 8 weeks History of gestational diabetes mellitus (GDM) in prior , currently O09.299; Z86.32 Threatened O20.0 Assessment and Plan Assessment and Plan (1) Hx of one miscarriage: Status: Acute Comment: 2020 (2) Advanced maternal age (AMA) in : Status: Acute (3) Supervision of high-risk : Status: Acute Comment: , LELA 07/19/25, Elisa Muro, Santigao [place] by Johny (4) : Status: Acute Qualifiers: Weeks of gestation: 8 weeks Qualified Code(s): Z3A.08 - 8 weeks gestation of Comment: elects NIPT with gender & carrier testing (5) History of gestational diabetes mellitus (GDM) in prior , currently : Status: Acute (6) Threatened : Status: Acute Comment: GS measuring 19-21 mm, CRL 3.6mm no FHT. 6 weeks. reviewed bleeding precautions, fu repeat scan. Orders: Orders CBC W/Diff, Automated 11/30/24 O09.90 - Supervision of high risk , unspecified, unspecified trimester Type & Screen 11/30/24 O09. - Supervision of high risk , unspecified, unspecified trimester Rubella IgG 11/30/24 O09.90 - Supervision of high risk , unspecified, unspecified trimester Hepatitis C Antibody 11/30/24 O09.90 - Supervision of high risk , unspecified, unspecified trimester Hepatitis B Surface Antigen 11/30/24 O09.90 - Supervision of high risk , unspecified, unspecified trimester Culture, Urine 11/30/24 O09.90 - Supervision of high risk , unspecified, unspecified trimester Syphilis Antibodies 11/30/24 O09.90 - Supervision of high risk , unspecified, unspecified trimester Chlamydia/GC HARIS aptima 11/30/24 O09.90 - Supervision of high risk , unspecified, unspecified trimester HIV 11/30/24 O09.90 - Supervision of high risk , unspecified, unspecified trimester Hemoglobin A1c 11/30/24 O09.299 - Supervision of with other poor reproductive or obstetric history, unspecified trimester, O09.90 - Supervision of high risk , unspecified, unspecified trimester, Z86.32 - Personal history of gestational diabetes OTIS 11/30/24 O09.90 - Supervision of high risk , unspecified, unspecified trimester Plan fu on for repeat scan. Clinical Quality Measures Falls Risk Screening/Assistive Devices Have you fallen in the past year?: No 12/11/24 1117 <Electronically signed by Patricia alegre MD> Date _ Patricia Camarillo MD Cosigner Signature: Date (if applicable) CC: ~ [facility] Work Phone: Progress note Author Patricia Camarillo [facility] Note Date/Time December 14, 2024 8: 54am [facility] [address], [address] [place] [address] OFFICE VISIT Date of Service: 12/14/24 MR#: [id number] Acct: [id number] Name: YURIDIA RUSH Rep #: [id number] : 1985 Provider: Dr. Jl Camarillo MD Age/Sex: 39/F Location: [facility] Status: Signed Intake Vital Signs 12/11/24 10:42 12/14/24 08:10 Height 6 ft 6 ft Weight: 206 lb 8 oz 204 lb 4 oz BMI 28.0 27.7 BP 136/79 H 137/88 H Intake Visit Reasons: rescan [employer] Professional Required: No Is patient in pain?: No Allergies No Known Allergies Allergy (Verified 12/14/24 08:12) Medications ?Medication ?Instructions ?Recorded ?Confirmed ?Type calcium 400 mg (as tab PO 11/30/24 12/14/24 His tory carbonate)-magnesium 117 mg-vit C 167 mg tablet multivitamin no.47-iron fum 27 cap PO 11/30/24 5 History mg-folate no.1 1 mg-dha 300 mg capsule (PNV-DHA) misoprostol 200 mcg tablet 800 mcg (4 x 200 mcg) PO .c omplex 12/14/24 12/14/24 Rx (Cytotec) #8 tabs naproxen 500 mg tablet 500 mg PO Q12H #20 tabs 10/0 05/0912/14/24 Rx oxycodone-acetaminophen 5 mg-325 1 tab PO Q6H 7 days # 10 tabs 12/14/24 12/14/24 Rx mg tablet (Percocet) Last Menstrual Period: 10/12/24 Zika: Zika virus screening: Negative : No PFSH PFSH Medical History FH: liver cancer FH: colon cancer Vaginal delivery Infertility macrosomia Gestational diabetes History of PCOS Family History Grandfather Colon cancer, Onset Age: 80 Paternal Maternal Grandmother Cancer, Onset Age: 80 Liver Social History adopted: No household members: spouse and children housing: house number of children: 2 current occupational status: employed and unemployed current occupation: [employer] current occupational exposures/hazards: No pets and animals: No history of recent travel: Yes (September) out of state: Yes out of country: Yes sexually active: Yes Smoking Status: Never smoker alcohol intake: current alcohol intake frequency: holidays/special occasions only details: not while substance use type: does not use diet: diabetic well-balanced diet: daily or most days caffeine: Yes Type: coffee Number of servings: 1 and tea Number of servings: 1 eating out: 4 or more times/week during the past year weight has: remained stable what type of physical activity do you participate in: walking frequency: 1-2 times per week duration: 15-30 minutes/day richrad/taoism: Gnosticist seatbelt use: always do you feel safe at home: Yes additional social history: [facility] History 4 Elective abortions Hx Para 2 Spontaneous abortions 1 Hx # Term Pregnancies Ectopic pregnancies Hx # Pregnancies Multiple births # of living children 2 Past Pregnancies Del. Date Name GA/Weeks Outcome Route Bth Weight Gen Labor Lgth Anesthesia Del Locatn Provider FOB Unknown Mar 2020 spontaneous 08/07/16 [place] 40 live - full term 10#5oz Female 8 hr non e Zina Santiago 12/29/21 [place] 39 live - full term 8#5oz Female epi dural [facility] Patricia Camarillo Delivery Date: Last Updated by: Brianna Salgado NP, WAREHOUSE PERSON-C no intervention Delivery Date: 08/07/16 Last Updated by: Brianna Salgado NP, WAREHOUSE PERSON-C IOL, nonreactive NST. Delivery Date: 12/29/21 Last Updated by: Pily Gonzalez see problem list for complications, and IOL GDMA1 ama girl [facility]. HPI rescan Details: The patient is a 39-year-old female presenting with concerns regarding her progression and viability. During the previous scan, the gestational sac measured 21 millimeters, and the crown-rump length was 3.6 millimeters, with expectations for growth to at least 6 millimeters and the presence of a heartbeat. However, the current assessment revealed that the fetalmeasurements remained unchanged, and no heartbeat was detected, indicating a miscarriage. The patient was informed that the miscarriage was likely due to genetic factors,as the ceased to develop further. There was no evidence of bleeding around the gestational sac, and the patient was reassured that the miscarriage was not caused by any actions on her part. - Imaging: Gestational sac measured 21 mm previously, now 7w1d 24 mm and crown- rump length was 3.6 mm preivously now 3 mm , no heartbeat detected on current assessment. Attestation: Documentation on this patient encounter was supported using ambient scribe technology/ voice AI technology. The patient consented to recording for the purpose of documenting the encounter. Provider reviewed content of the generatednote prior to signature. OB Visit LELA Calculator Estimated Delivery Date Method Current WG Current Estimate 07/19/25 LMP (Certain) 9w 0d Expected Delivery Route/Plan Labor Preferences- CB/BF classes: [] labor support person: [] labor intervention preferences: [] pain management options preferred: [] cut cord/dad catch: [] : [] PP control planned: [] discussed possible routes of delivery and associated risks: [] special requests: [] Specific Issue/Plans Covid status: [] Flu vaccine: [] Tdap vaccine: [] Rhogam: [] LARC form signed: [] Problem list reviewed and updated with the most current plan of care details and appropriate orders placed. Relevant counseling for the gestational age provided. Continue routine care and follow up unless otherwise noted in visit notes/problem list details ACOG First Trimester First Trimester: Desire for , Alcohol, Tobacco Cessation, Illicit/Recreational Drug/Substance Use, Intimate Partner Violence, Barriers to care, Unstable Housing, Communication Barriers, Environmental/Work Hazards, Anticipated Course of Care, Toxoplasmosis Precations, Use of Any medications, Sexual activity, Exercise, Dental Care, Sauna/Hot tub use, Seat Belt use, Childbirth classes/Hospital facilities, Travel, Indications for Ultrasound and Screening for Aneuploidy; Discussed Second Trimester Second Trimester: Signs and Symptoms of Labor, Selecting a care provider, Reproductive Life Planning & Contreception, Care Planning, Depression/Anxiety and Intimate Partner Violence; Discussed Tobacco Cessation Third Trimester Third Trimester: Pain Management Plans, Labor support person(s), Immediate Larc, Signs and Symptoms of Preeclampsia, Infant Feeding No and Family Medical Leave or Disability Forms ROS Const Denies fatigue, Denies fever(s), Denies headache(s), Denies increased appetite, Denies poor appetite, Denies weight gain and Denies weight loss ENT Denies headache(s) Card Denies chest pain and Denies dyspnea Resp Denies cough and Denies dyspnea GI Reports as per HPI, Denies abdominal pain, Denies constipation, Denies nausea and Denies vomiting Reports as per HPI, Denies difficulty voiding, Denies dysuria, Denies nipple discharge, Denies urinary frequency, Denies urinary incontinence, Denies urinary hesitancy, Denies urinary urgency, Denies vaginal discharge, Denies vaginal dryness, Denies vaginal odor and Denies vaginal pruritus Skin/Breast Denies change in hair, Denies breast mass, Denies breast pain, Denies breast skin changes and Denies nipple discharge Neuro No headache(s) Endo Denies fatigue Exam Const General: cooperative, healthy appearing, comfortable, no acute distress and well developed Nutritional Appearance: average body habitus Orientation: alert HENMT Head: normal to inspection and normocephalic Neck Neck: normal visual inspection and trachea midline Thyroid: thyroid normal Resp Effort & Inspection: normal respiratory effort GI Inspection: normal to inspection and non-distended Palpation: soft and no hepatosplenomegaly General: bladder normal to palpation External Female Exam: normal external appearance and normal appearance of the urethra Urethra: normal appearance of the urethra, normal palpation and no discharge Speculum Exam - Vagina: normal appearance of the vagina and normal vaginal discharge Speculum Exam - Cervix: normal appearance of the cervix and nontender Bimanual Exam- Vagina & Uterus: normal bimanual exam, uterine size normal, bladder normal to palpation, uterine shape normal, No tender, uterine mobility normal, consistency normal, normal palpation and non-tender Bimanual Exam- Adnexa, other: normal adnexae, adnexae mobile, no masses and normal Pelvic Support: normal Skin General: no rashes or lesions noted Results POC Urinalysis 2 Dip (Clinic) Office Urine Glucose Negative Last Edit by Brianna Ross on 12/14/24 08:18 Office Urine Protein Negative Last Edit by Brianna Ross on 12/14/24 08:18 Coding Level of Care Code Off vis,est,level 4 Diagnoses Threatened O20.0 Hx of one miscarriage Z87.59 Advanced maternal age (AMA) in Supervision of high-risk O09.90 9 weeks gestation of Z3A.09 Weeks of gestation: 9 weeks History of gestational diabetes mellitus (GDM) in prior , currently O09.299; Z86.32 Assessment and Plan Assessment and Plan (1) Threatened : Status: Acute Comment: GS measuring 19-21 mm, CRL 3.6mm no FHT. 6 weeks. reviewed bleeding precautions, fu repeat scan. (2) Hx of one miscarriage: Status: Acute Comment: 2020 (3) Advanced maternal age (AMA) in : Status: Acute (4) Supervision of high-risk : Status: Acute Comment: , LELA 07/19/25, Elisa Muro, [place] by Johny (5) : Status: Acute Qualifiers: Weeks of gestation: 9 weeks Qualified Code(s): Z3A.09 - 9 weeks gestation of Comment: elects NIPT with gender & carrier testing (6) History of gestational diabetes mellitus (GDM) in prior , currently : Status: Acute Orders: Orders POC Urinalysis 2 Dip (Clinic) Today Medications: New misoprostol (Cytotec) 800 mcg (4 x 200 mcg) PO .complex 8 tabs 1RF oxycodone-acetaminophen 5-325 mg (Percocet) 1 TAB PO Q6H 10 tabs 0RF 7 days R10.20 - Pelvic and perineal pain unspecified side naproxen 500 mg PO Q12H 20 tabs 0RF Plan The patient was presented with two management options for the miscarriage: medical management with misoprostol or surgical management with dilation and curettage (D&C). Medical management involves the use of misoprostol, with a success rate of 85- 90%, and requires a follow-up scan to confirm completion. Surgical management with D&C is an outpatient procedure allowing for quick recovery. The patient opted for medical management with misoprostol, with a follow-up scan scheduled to ensure complete resolution. Pain management with naproxen and Percocet was also discussed and prescribed. - Take misoprostol as prescribed, inserting vaginally for best results. - Use naproxen and Percocet for pain management as needed. - Stay hydrated and use a heating pad for comfort. - Attend follow-up scan to confirm completion of miscarriage. I discussed with the patient the ultrasound findings indicating a miscarriage and explained the likely genetic etiology. We reviewed management options, including medical management with misoprostol and surgical management with D&C, highlighting the success rates and recovery expectations. The patient chose medical management, and I outlined the follow-up plan, including a scan to confirm completion and prescriptions for pain management. Patient Instructions: - Take misoprostol as prescribed, inserting vaginally for best results. - Use naproxen and Percocet for pain management as needed. - Stay hydrated and use a heating pad for comfort. - Attend follow-up scan to confirm completion of miscarriage. 12/14/24 [id number] <Electronically signed by Patricia alegre MD> Date _ Patricia Camarillo MD Cosigner Signature: Date (if applicable) CC: ~ [facility] Work Phone: Progress note Author Patricia Camarillo [facility] Services Note Date/Time December 19, 2024 10 :56am [facility] [address], [address] [place] [address] OFFICE VISIT Date of Service: 12/19/24 MR#: [id number] Acct: [id number] Name: YURIDIA RUSH Rep #: [id number] : 1985 Provider: Dr. 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 Is patient in pain?: Yes (cramping) Allergies No Known Allergies Allergy (Verified 12/19/24 10:49) Medications ?Medication ?Instructions ?Recorded ?Confirmed ?Type calcium 400 mg (as tab PO 11/30/24 12/19/24 His tory carbonate)-magnesium 117 mg-vit C 167 mg tablet Post menopausal: No Patient : No : No PFSH Medical History FH: liver cancer FH: colon cancer Vaginal delivery Infertility macrosomia Gestational diabetes History of PCOS Family History Grandfather Colon cancer, Onset Age: 80 Paternal Maternal Grandmother Cancer, Onset Age: 80 Liver Social History adopted: No household members: spouse and children housing: house number of children: 2 current occupational status: employed and unemployed current occupation: [employer] current occupational exposures/hazards: No pets and animals: No history of recent travel: Yes ([place] September) out of state: Yes out of country: Yes sexually active: Yes Smoking Status: Never smoker alcohol intake: current alcohol intake frequency: holidays/special occasions only details: not while substance use type: does not use diet: diabetic well-balanced diet: daily or most days caffeine: Yes Type: coffee Number of servings: 1 and tea Number of servings: 1 eating out: 4 or more times/week during the past year weight has: remained stable what type of physical activity do you participate in: walking frequency: 1-2 times per week duration: 15-30 minutes/day richard/taoism: Gnosticist seatbelt use: always do you feel safe at home: Yes additional social history: -[facility] Rescan *per Details: YURIDIA RUSH is a 39 year old who presents for follow-up of early miscarriage. Patient had heavy bleeding after taking the Cytotec particularly on Wednesday passed large clots and what looked like products of conception. Bleeding has then since slowed down. She denies any fevers or significant cramping she feels like things has gone well and she is satisfied with her choice. On ultrasound the lining shows some clot with no vascularity and no significant retained products gestational sac is gone. The measures 8 to 9 mm. History 4 Elective abortions Hx Para 2 Spontaneous abortions 2 Hx # Term Pregnancies Ectopic pregnancies Hx # Pregnancies Multiple births # of living children 2 Past Pregnancies Del. Date Name GA/Weeks Outcome Route Bth Weight Infant Gen Labor Lgth Anesthesia Del Locatn Provider FOB Unknown Mar 2020 spontaneous Unknown December 2024 spontaneous 08/07/16 Esther 40 live - full term 10#5oz Female 8 hr non e Zina Santiago 12/29/21 Elisa 39 live - full term 8#5oz Female epi dural [facility] Patricia Camarillo Delivery Date: Last Updated by: Brianna Salgado WAREHOUSE PERSON, WAREHOUSE PERSON-C no intervention Delivery Date: 08/07/16 Last Updated by: Brianna Salgado WAREHOUSE PERSON, WAREHOUSE PERSON-C IOL, nonreactive NST. Delivery Date: 12/29/21 Last Updated by: Pily Gonzalez see problem list for complications, and IOL GDMA1 ama girl [place] SM. ROS Const Constitutional: Reports as per HPI; Denies fever(s) ENT ENT: Reports system reviewed and no additional complaints, except as documented Cardio Card: Reports system reviewed and no additional complaints, except as documented Resp Resp: Reports system reviewed and no additional complaints, except as documented GI GI: Reports as per HPI : Reports as per HPI Musc Musc: Reports system reviewed and no additional complaints, except as documented Skin Skin/Breast: Reports system reviewed and no additional complaints, except as documented Neuro Neuro: Reports system reviewed and no additional complaints, except as documented Endo Endo: Reports system reviewed and no additional complaints, except as documented Exam Const General: healthy appearing, comfortable and no acute distress HENMT Head: normal to inspection and normocephalic Neck Neck: no lymphadenopathy noted Thyroid: thyroid normal Chest Chest palpation & inspection: normal inspection of the chest Resp Effort & Inspection: normal respiratory effort Cardio Rate: regular rate Rhythm: regular rhythm GI Inspection: normal to inspection Palpation: soft and nontender External Female Exam: normal external appearance Speculum Exam - Vagina: normal appearance of the vagina and vaginal bleeding Bimanual Exam- Vagina & Uterus: uterine shape normal and non-tender OB/External & Speculum: vaginal bleeding Speculum Exam: vaginal bleeding Skin General: no rashes or lesions noted Neuro General: no focal motor deficits Extrem General: normal to inspection and no pedal edema Psych Appearance: grossly normal Coding Level of Care Code Off vis,est,level 3 Diagnoses Complete O03.9 Assessment and Plan Assessment and Plan (1) Complete : Status: Acute Plan Discussed additional dose of Cytotec to help release the rest of the clot if desired versus expectant management. Recommend either blood test for hCG in several weeks to confirm negative or [id number] urine test to confirm negative. Discussed pelvic rest her 1 to 2 weeks. Call with next conception 12/19/24 [id number] <Electronically signed by Patricia alegre MD> Date _ Patricia Camarillo MD Cosigner Signature: Date (if applicable) CC: ~ [facility] Work Phone: Reason for referral (narrative)No reason for referral information available[facility] Work Phone: History of Present Illness * Pretty Luu, CHEMICAL LIBRARIAN-COUNTY ASSESSOR - 05/25/2018 2:10 PM EDT History of Present Illness Chief Complaint Patient presents with [facility] Yuridia is a very pleasant 32 yr old female here to [facility]. 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 She reports as a child her parents chose not to have her vaccinated. She is inquiring about gettingvaccines now, as adult, and which ones to get, and which ones are okay if she is . She alsoexpressed concern that with last they conceived within first month of trying. They have currently been trying since August without success. She does see Dr. Nathalie Brian for her OBGYN care. She reports good energy, sleeps without difficulty, does not follow special diet or eliminate anything from diet. She does not smoke. Date of last Annual Exam. Patient states it has been awhile Current Medical Providers. Dr. Brian OBGYN Advance Directive. none Last Dental Cleaning. 04/2018 Last Eye Exam. 2018 Las PAP. 2016, no hx of abnormal PAP - follows with Dr. Brian Patient states she has never been vaccinated, even as a child. She is interested in getting updatedon current recommended vaccines. Review of Systems Constitutional: Negative. HENT: Negative for congestion (last week). Eyes: Negative. Respiratory: Negative for shortness of breath. Cardiovascular: Negative for chest pain and palpitations. Gastrointestinal: Negative. Genitourinary: Negative. Musculoskeletal: Negative. Skin: Negative. Neurological: Negative for dizziness and headaches. Endo/Heme/Allergies: Positive for environmental allergies. Does not bruise/bleed easily. Psychiatric/Behavioral: Negative for depression. The patient is not nervous/anxious and does not have insomnia. Vitals: Blood pressure 120/72, pulse 73, temperature 98.1 F (36.7 C), temperature source Temporal, resp. rate 18, height 1.854 m (6' 1"), weight 91 kg (200 lb 9.6 oz), SpO2 98 %, not currently . Physical Exam Constitutional: She is oriented to person, place, and time. Vital signs are normal. She appears well-developed and well-nourished. She is cooperative. HENT: Head: Normocephalic and atraumatic. Right Ear: External ear normal. Left Ear: External ear normal. Nose: Nose normal. Mouth/Throat: Oropharynx is clear and moist. Eyes: Pupils are equal, round, and reactive to light. Conjunctivae and EOM are normal. Neck: Normal range of motion. No JVD present. No thyromegaly present. Cardiovascular: Normal rate, regular rhythm, normal heart sounds and intact distal pulses. Exam reveals no gallop and no friction rub. No murmur heard. Pulmonary/Chest: Effort normal and breath sounds normal. Abdominal: Soft. Bowel sounds are normal. Genitourinary: Genitourinary Comments: Deferred. Followed by Dr. Brian. Will contact her regarding concerns withgetting . Pt was advised today to take folic acid supplement or a vitamin w/folic acid in anticipation of getting . Musculoskeletal: Normal range of motion. She exhibits no edema or tenderness. Lymphadenopathy: She has no cervical adenopathy. Neurological: She is alert and oriented to person, place, and time. Skin: Skin is warm and dry. Psychiatric: Judgment normal. Nursing note and vitals reviewed. Neurologic Exam Mental Status Oriented to person, place, and time. Cranial Nerves CN III, IV, Pupils are equal, round, and reactive to light. Extraocular motions are normal. Assessment and Plan 1. Wellness examination - CBC,PLATELETS; Future - TSH W/FT4 REFLEX; Future - LIPID PANEL W CALCULATED LDL; Future - URINALYSIS, MACRO; Future - COMPREHENSIVE METABOLIC PANEL; Future Screening lab work will be ordered. Pt will be called with results. COUNTY ASSESSOR will discuss vaccine questions (with trying to get , when to get, what to get etc) withDr. Long and follow up with pt accordingly. Pt was given copy of vaccine recommendations by CDC foradults. * Rodolfo Maldonado LPN - 05/25/2018 2:10 PM EDT Review of Systems Constitutional: Negative. HENT: Negative for congestion (last week). Eyes: Negative. Respiratory: Negative for shortness of breath. Cardiovascular: Negative for chest pain and palpitations. Gastrointestinal: Negative. Genitourinary: Negative. Musculoskeletal: Negative. Skin: Negative. Neurological: Negative for dizziness and headaches. Endo/Heme/Allergies: Positive for environmental allergies. Does not bruise/bleed easily. Psychiatric/Behavioral: Negative for depression. The patient is not nervous/anxious and does not have insomnia. Date of last Annual Exam. Patient states it has been awhile Current Medical Providers. Dr. Brian OBGYJayna Advance Directive. none Last Dental Cleaning. 04/2018 Last Eye Exam. 2018 Last Colonoscopy. n/a Last Bone Density. n/a Last Mammogram. n/a Las PAP. 2016, no hx of abnormal PAP Flu vaccine. Does not get Pneumococcal vaccine.n/a Shingles vaccine. n/a Tetanus vaccine. Patient states she has never been vaccinated, even as a child. documented in this encounter* Nathalie Brian, - 06/01/2018 8:30 AM EDT History of Present Illness 32yo female presents with complaints of an inability to conceive. She started trying around last August and has been using a period tracker on her phone. She states that her periods are fairly regular coming around every 31 days. She denies any history of thyroid issues. She does have some abnormal facial hair, but she has dark hair in general. She denies any changes in stress, activity, or weight. She is not on any new medications and denies any abnormal discharge. She has not had a recent ultrasound of her pelvis. Review of Systems Constitutional: Negative for appetite change, fever and unexpected weight change. Respiratory: Negative for wheezing. Cardiovascular: Negative for palpitations. Gastrointestinal: Negative for abdominal pain, constipation, diarrhea, nausea and vomiting. Endocrine: Negative. Genitourinary: Negative for difficulty urinating, dysuria, flank pain, frequency, genital sores, menstrual problem, pelvic pain and vaginal discharge. Neurological: Negative for headaches. Vitals: Blood pressure 121/82, pulse 87, height 6' 1" (1.854 m), weight 194 lb (88 kg), last menstrual period 05/04/2018, not currently . Physical Exam Constitutional: She is oriented to person, place, and time. She appears well- developed and well-nourished. No distress. HENT: Head: Normocephalic and atraumatic. Eyes: EOM are normal. Neck: Normal range of motion. No thyromegaly present. Cardiovascular: Normal rate, regular rhythm and normal heart sounds. No murmur heard. Pulmonary/Chest: Effort normal and breath sounds normal. Abdominal: Soft. Bowel sounds are normal. She exhibits no distension. There is no tenderness. Thereis no rebound and no guarding. Lymphadenopathy: She has no cervical adenopathy. Neurological: She is alert and oriented to person, place, and time. Skin: Lip hair present Psychiatric: She has a normal mood and affect. Judgment normal. Nursing note and vitals reviewed. Neurologic Exam Mental Status Oriented to person, place, and time. Cranial Nerves CN III, IV, Extraocular motions are normal. Assessment and Plan ICD-10-CM 1. Pre-conception counseling Z31.69 2. Hirsutism L68.0 TESTOSTERONE INSULIN PROLACTIN ESTRADIOL, ENHANCED HEMOGLOBIN A1C 1. The patient should continue taking her vitamins and add either basal body temperature charting or ovulation prediction kits to help her time intercourse better. Since she has not been trying for a year, I am not going to do an extensive infertility workup. She has history of a prior uncomplicated and she is with the same partner. Once she has been trying forr a year, I wouldconsider an SIS to rule out tubal patency. Will get a few baseline labs to make sure her testosterone levels are not abnormal. documented in this encounter* Nathalie Brian DO - 07/12/2018 3:30 PM EDT Patient was on her period so was not seen documented in this encounter* Pretty Luu, CHEMICAL LIBRARIAN-COUNTY ASSESSOR - 07/14/2018 4:10 PM EDT History of Present Illness Chief Complaint Patient presents with Immunization/Injection Patient would like to discuss and start her vaccines today. Yuridia is here today to discuss starting her vaccines. Patient has never been vaccinated before.Patient states she is going to hold off on trying to get until she is up to date with her vaccines. Review of CDC site finds recommendations for: MMR x 1 dose TdaP x 1 dose now, then booster every 10 years Varicella x 2 doses, one now, then second dose in 4-8 weeks And Hep B (optional) will get 1 today Review of Systems Constitutional: Negative for activity change, fatigue and fever. HENT: Negative for congestion, dental problem, ear pain, facial swelling, sinus pressure and sinus pain. Eyes: Negative for pain, redness and visual disturbance. Respiratory: Negative for cough, chest tightness, shortness of breath and wheezing. Cardiovascular: Negative for chest pain, palpitations and leg swelling. Gastrointestinal: Negative for abdominal pain, constipation, diarrhea, nausea and vomiting. Endocrine: Negative. Genitourinary: Negative for difficulty urinating and flank pain. Musculoskeletal: Negative for arthralgias, joint swelling, myalgias, neck pain and neck stiffness. Skin: Negative for color change, rash and wound. Allergic/Immunologic: Negative for environmental allergies. Neurological: Negative for dizziness, tremors, syncope, weakness, light- headedness, numbness and headaches. Hematological: Negative for adenopathy. Does not bruise/bleed easily. Psychiatric/Behavioral: Negative for decreased concentration, dysphoric mood, self-injury and sleepdisturbance. The patient is not nervous/anxious. Vitals: Blood pressure 122/80, pulse 71, temperature 97.5 F (36.4 C), temperature source Temporal, resp. rate 16, height 1.854 m (6' 1"), weight 88.4 kg (194 lb 12.8 oz), SpO2 96 %, not currently . Physical Exam Constitutional: She is oriented to person, place, and time. She appears well- developed and well-nourished. Cardiovascular: Normal rate and regular rhythm. Pulmonary/Chest: Effort normal and breath sounds normal. Neurological: She is alert and oriented to person, place, and time. Nursing note and vitals reviewed. Neurologic Exam Mental Status Oriented to person, place, and time. Assessment and Plan 1. Immunization due - measles, mumps and rubella vaccine Injection; Inject 0.5 mL under the skin Once (In Clinic) for 1dose. Dispense: 1 Each; Refill: 0 - MMR VACCINE 0.5ML SC - Tetanus, Diphtheria, and Acellular Pertussis Vaccine 5-2-15.5 LF-MCG/0.5 Suspension; Inject 0.5 mL intramuscularly Once (In Clinic) for 1 dose. Dispense: 1 vial; Refill: 0 - TDAP VACCINE >10YO 0.5ML IM - Varicella Virus Vaccine Live 1350 PFU/0.5ML Injection; Inject 0.5 mL under the skin Once (In Clinic) for 1 dose. Dispense: 1 Each; Refill: 0 - VARICELLA VACCINE LIVE 0.5ML SC - hepatitis B vaccine 20 MCG/ML Suspension; Inject 1 mL intramuscularly Once (In Clinic) for 1 dose. Dispense: 1 vial; Refill: 0 - HEPATITIS B VACCINE ADULT 1 ML IM * Rodolfo Maldonado LPN - 07/14/2018 4:10 PM EDT Review of Systems Respiratory: Negative for shortness of breath. Cardiovascular: Negative for chest pain and palpitations. Patient here today to discuss starting her vaccines. Patient has never been vaccinated before. Patient states she is going to hold off on trying to get until she is up to date with her vaccines. documented in this encounter* Nathalie Brian DO - 07/27/2018 2:45 PM EDT History of Present Illness 32yo female presents for her annual exam. Her last pap smear was in 2016 and was normal. She had a baby in 2017. Since then her periods have been normal and regular. She has been trying to conceive since last August, but has been unsuccessful. All lab work has been normal so far. She denies any changes in stress levels or health. She denies any new discharge or urinary complaints. She is not having any breast problems and does not report strong family history of breast cancer. Review of Systems Constitutional: Negative for appetite change, fever and unexpected weight change. Respiratory: Negative for wheezing. Cardiovascular: Negative for palpitations. Gastrointestinal: Negative for abdominal pain, constipation, diarrhea, nausea and vomiting. Endocrine: Negative. Genitourinary: Negative for difficulty urinating, dysuria, flank pain, frequency, genital sores, menstrual problem, pelvic pain and vaginal discharge. Vitals: Blood pressure 109/77, pulse 69, height 6' 1" (1.854 m), weight 195 lb (88.5 kg), last menstrual period 07/11/2018, not currently . Physical Exam Constitutional: She is oriented to person, place, and time. She appears well- developed and well-nourished. No distress. HENT: Head: Normocephalic and atraumatic. Eyes: EOM are normal. Neck: Normal range of motion. No thyromegaly present. Cardiovascular: Normal rate, regular rhythm and normal heart sounds. No murmur heard. Pulmonary/Chest: Effort normal and breath sounds normal. Right breast exhibits no inverted nipple, no mass, no nipple discharge, no skin change and no tenderness. Left breast exhibits no inverted nipple, no mass, no nipple discharge, no skin change and no tenderness. Breasts are symmetrical. Fibrocystic changes Abdominal: Soft. Bowel sounds are normal. She exhibits no distension. There is no tenderness. Thereis no rebound and no guarding. Genitourinary: Vagina normal and uterus normal. Rectal exam shows no external hemorrhoid. Pelvic exam was performed with patient supine. There is no rash, tenderness or lesion on the right labia. There is no rash, tenderness or lesion on the left labia. Right adnexum displays no mass, no tendernessand no fullness. Left adnexum displays no mass, no tenderness and no fullness. No vaginal dischargefound. Genitourinary Comments: 8-10 weeks Parous cervix Pap collected Lymphadenopathy: She has no cervical adenopathy. Right: No inguinal adenopathy present. Left: No inguinal adenopathy present. Neurological: She is alert and oriented to person, place, and time. Psychiatric: She has a normal mood and affect. Judgment normal. Nursing note and vitals reviewed. Neurologic Exam Mental Status Oriented to person, place, and time. Cranial Nerves CN III, IV, Extraocular motions are normal. Assessment and Plan ICD-10-CM 1. Well woman exam with routine gynecological exam Z01.419 2. Screening for cervical cancer Z12.4 PREMA CYTOLOGY-VAULT MAKER, LIQUID BASED 1. Reviewed ACOG screening guidelines for pap smears and mammograms. Reviewed diet and exercise with patient. Once she becomes menopausal, she should start incorporating vitamin D and calcium into her diet. Next pap in 3-5 years if cotesting is negative. Will continue yearly mammograms. The patientshould continue vitamins since she is interested in conceiving in the near future. documented in this encounter* Katherine Murdock DO - 01/30/2019 2:15 PM EST HPI Yuridia Rush is a 33 y.o. female who presents today for had concerns including Infertility (infertility trying for 18 months-lmp 12/31/2018). LMP: Patient's last menstrual period was 12/31/2018 (exact date). No results found for: PAPSMEAR Patient is a 33-year-old here for desiring has been trying for 18 months with no success. She has regular periods but they are prolonged at greater than 35-40 days. Her last period was December 21 urine test negative today. She did have her annual workup this year as well as some labswhich were all normal. Same father as her child. Patient is okay for checking a transvaginal ultrasound as well as a day 21 progesterone. We brieflydiscussed Clomid. She will come back in 4 weeks and go over results. OB HISTORY: OB History Para Term AB Living 1 1 1 1 SAB TAB Ectopic Molar Multiple Live Births # Outcome Date GA Lbr Skyler/2nd Weight Sex Delivery Anes PTL Lv 1 Term 08/07/16 40w6d 10 lb 5 oz (4.678 kg) F Vag-Spont Complications: Hemorrhage HISTORY/ALLERGIES No Known Allergies No past medical history on file. No past surgical history on file. Social History Tobacco Use Smoking status: Never Smoker Smokeless tobacco: Never Used Substance Use Topics Alcohol use: Yes Comment: rarely Drug use: No Family History Problem Relation Age of Onset No known problems Mother No known problems Father Colorectal Cancer Paternal Grandfather Current Outpatient Medications: calcium-vitamin D 500-200 MG-UNIT Tab tablet, Take 1 tablet by mouth daily., Disp: , Rfl: MV-Min-Fe Fum-FA-DHA ( 1 PO), Take by mouth., Disp: , Rfl: loratadine (CLARITIN) 10 MG Tab tablet, Take 1 tablet by mouth daily for 10 days., Disp: 10 tablet,Rfl: 0 ROS Review of Systems Constitutional: Negative. HENT: Negative. Eyes: Negative. Respiratory: Negative. Cardiovascular: Negative. Gastrointestinal: Negative. Genitourinary: Negative. Negative for genital sores, menstrual problem, pelvic pain, vaginal bleeding, vaginal discharge and vaginal pain. Skin: Negative. Allergic/Immunologic: Negative. Neurological: Negative. Psychiatric/Behavioral: Negative. All other systems reviewed and are negative. EXAM Blood pressure 133/85, pulse 75, height 6' (1.829 m), weight 207 lb 3.2 oz (94 kg), last menstrual period 12/31/2018, not currently . Physical Exam Vitals signs and nursing note reviewed. Constitutional: Appearance: She is well-developed. HENT: Head: Normocephalic. Neck: Musculoskeletal: Normal range of motion. Cardiovascular: Rate and Rhythm: Normal rate. Pulmonary: Effort: Pulmonary effort is normal. Abdominal: General: There is no distension. Palpations: Abdomen is soft. Genitourinary: Exam position: Supine. Vagina: Normal. No vaginal discharge. Musculoskeletal: Normal range of motion. Skin: General: Skin is warm and dry. Neurological: Mental Status: She is alert and oriented to person, place, and time. Diagnosis/Plan: Yuridia was seen today for infertility. Diagnoses and all orders for this visit: Irregular menses - US TRANSVAGINAL LIMITED; Future - PROGESTERONE; Future Amenorrhea - POCT URINE Other orders - calcium-vitamin D 500-200 MG-UNIT Tab tablet; Take 1 tablet by mouth daily. Desires . RTO 4 weeks The documentation within this encounter was likely aided with Dragon, and electronic fence installer device. Please excuse any errors or omissions that may not have been recognized at the time of this encounter. Katherine Murdock DO 01/30/2019 documented in this encounter* Katherine Murdock DO - 03/21/2019 1:15 PM EST Patient is a 33-year-old here for follow-up for infertility workup. Her ultrasound did have apossible polycystic ovarian appearing ovary. Otherwise normal uterus. Progesterone was low and normal at 5 but not 0. She does have monthly menses that the ears are on for prolonged side of 35-40 days. She states she tried ovulation kits months without a positive. I discussed likely not ovulating every month. I did offer Clomid versus metformin medication. We discussed briefly the Clomid would increase her twin risk from 4% to 8%. We did discuss evaluating tubal patency with an HSG. This is thesame father of her child but I did offer a semen analysis to assess sperm. Patient states will discuss with and think about will call if desires further treatment advised to continue urinary ovulation kits and intercourse. VSS Assessment) 1. PCOS 2. Prolonged menses cycle at 40days Plan) 1. Patient to call if desires further treatment documented in this encounter* Cynthia Kessler RN - 02/28/2020 10:30 AM EST Presents to office for Urine test, test is +. LMP 01/04/2020 LELA 10/10/2020 EGA 7.6 weeks.Patient is working with interventional professional for OTC supplements. Is taking OTC PNV. Ob reg to be scheduled in 1 week. Patient to call office with any questions or concerns. documented in this encounter* Maryellen Guan LPN - 03/05/2020 1:30 PM EST Patient here for OB reg. Labs drawn from left AC with 21G butterfly. Tolerated well. LELA:10/10/2020.LMP: 01/04/2020. She is having some nausea but denies vomiting. Denies any known family history. She declined HIV testing. She would like to have TSH done d/t being told Tyroid was out of range in past but never treated. Reviewed Do's and Dont's, Safe medications, OB schedule/ appt and US informtion. All questions answered. Patient to return in 2-3 weeks for dating US and new OB. documented in this encounter* Adrian Schulz MD - 04/04/2020 9:30 AM EST [facility] Arts Therapist [facility] HPI: Ms. Yuridia Rush is a 34 y.o. who presents for Chief Complaint Patient presents with Follow-up Missed AB, still with vaginal Bleeding. Ms. Rush previously presented for viability scan on 03/28 and an ultrasound identified a miscarriage. She elected expectant management. After leaving that visit she had persistent cramping. On Wednesday night around 10pm she had a gush ofblood, heavy bleeding, clots, and fragments that she believes were products of conception. Bleedingbegan tapered afterward and is now having bleeding like a light period. She would like to resume attempting another . She reports a history of PCOS but declined any interventions at this time. She was encouraged to continue her vitamins. REVIEW OF SYSTEMS Reports vaginal bleeding like a light period. She denies any vaginal pain, itching, burning, discharge, or odor. She denies headache, changes in vision, fevers, chills, cough, shortness of breath, nausea, vomiting, diarrhea, constipation, dysuria, or swelling of her extremities. VITALS Vitals: 04/04/20 0934 BP: 110/72 Temp: 99.1 F (37.3 C) PHYSICAL EXAMINATION General: WNWD, NAD, grieving appropriately Pulm: Normal work of breathing Ext: Warm and well perfused Pelvic: Declined by patient ASSESSMENT AND PLAN Ms. Yuridia Rush is a 34 y.o. who presents for missed . Missed - Confirmed by U/S with CRL 13.4mm and no cardiac activity - Blood type B+ - Intake labs drawn 03/05 and were unremarkable - Patient selected expectant management - Patient reports passage of tissue on 03/29. Schedule return in at patient's discretion for further care. No future appointments. 04/04/2020 Adrian Schulz MD documented in this encounter* Adrian Schulz MD - 03/28/2020 9:30 AM EST [facility] Arts Therapist [facility] HPI: Ms. Yuridia Rush is a 34 y.o. who presents for Chief Complaint Patient presents with 12w0d, A box feeder transabdominal ultrasound was performed, indicating a blighted ovum. A formal transvaginal ultrasound confirmed a 7w embryo without cardiac activity. She was informed that she has a missed /miscarriage and was counseled on expectant, medical, and surgical management. Reassurance was provided and questions were answered. She began grieving appropriately and has selected expectant management at this time No Known Allergies Past Medical History: Diagnosis Date History of infertility History of PCOS No past surgical history on file. 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 Social Needs Financial resource strain: Not on file Food insecurity Worry: Not on file Inability: Not on file Transportation needs Medical: Not on file Non-medical: Not on file Tobacco Use Smoking status: Never Smoker Smokeless tobacco: Never Used Substance and Sexual Activity Alcohol use: Not Currently Comment: rarely Drug use: Never Sexual activity: Yes Partners: Male control/protection: None Lifestyle Physical activity Days per week: Not on file Minutes per session: Not on file Stress: Not on file Relationships Social connections Talks on phone: Once a week Gets together: Once a week Attends hinduism service: Not on file Active member of club or organization: Not on file Attends meetings of clubs or organizations: Not on file Relationship status: Intimate partner violence Fear of current or ex partner: No Emotionally abused: No Physically abused: No Forced sexual activity: No Other Topics Concern Service Not Asked Blood Transfusions Not Asked Caffeine Concern Not Asked Occupational Exposure Not Asked Hobby Hazards Not Asked Sleep Concern Not Asked Stress Concern Not Asked Weight Concern Not Asked Special Diet Not Asked Back Care Not Asked Exercise Not Asked Bike Helmet Not Asked Seat Belt Not Asked Domestic Violence No Social History Narrative Not on file Family History Problem Relation Age of Onset No known problems Mother No known problems Father Colorectal Cancer Paternal Grandfather Dementia Paternal Grandfather No known problems Sister No known problems Brother Cancer Maternal Grandmother Pancreas Lung Cancer Maternal Grandfather liver Dementia Paternal Grandmother No known problems Brother Outpatient Medications Prior to Visit Medication Sig Dispense Refill Acetylcysteine (NAC PO) Take by mouth. calcium-vitamin D 500-200 MG-UNIT Tab tablet Take 1 tablet by mouth daily. loratadine (CLARITIN) 10 MG Tab tablet Take 1 tablet by mouth daily for 10 days. 10 tablet 0 Magnesium 200 MG tablet Take by mouth. PREBIOTIC PRODUCT PO Take by mouth. MV-Min-Fe Fum-FA-DHA ( 1 PO) Take by mouth. No facility-administered medications prior to visit. REVIEW OF SYSTEMS She denies any vaginal bleeding, pain, itching, burning, discharge, or odor. She denies headache, changes in vision, fevers, chills, cough, shortness of breath, nausea, vomiting, diarrhea, constipation, dysuria, or swelling of her extremities. VITALS Vitals: 03/28/20 0901 BP: 120/82 Temp: 96.4 F (35.8 C) PHYSICAL EXAMINATION General: WNWD, NAD, grieving appropriately Pulm: Normal work of breathing Ext: Warm and well perfused Pelvic: Deferred ASSESSMENT AND PLAN Ms. Yuridia Rush is a 34 y.o. who presents for missed . Missed - Confirmed by U/S with CRL 13.4mm and no cardiac activity - Blood type B+ - Intake labs drawn 03/05 and were unremarkable - Asymptomatic today - Counseled on expectant, medical, and surgical management - Selected expectant management - Precautions provided for sepsis - Precautions provided for hemorrhage Schedule return in 1 week to follow-up expectant management and plan of care. Future Appointments Date Time Provider Department Center 04/04/2020 9:30 AM Adrian Schulz MD [address] [place] [address] 03/28/2020 Adrian Schulz MD documented in this encounter Assessments Diagnosis Wellness examination- Primary Diagnosis Pre-conception counseling- Primary Other procreative management counseling and advice Hirsutism Diagnosis ERRONEOUS ENCOUNTER--DISREGARD- Primary Diagnosis Immunization due- Primary Need for prophylactic vaccination and inoculation against unspecified single disease Diagnosis Well woman exam with routine gynecological exam- Primary Routine gynecological examination Screening for cervical cancer Screening for malignant neoplasm of the cervix Diagnosis Immunization due- Primary Need for prophylactic vaccination and inoculation against unspecified single disease Diagnosis Irregular menses- Primary Irregular menstrual cycle Amenorrhea Absence of menstruation Diagnosis PCOS (polycystic ovarian syndrome)- Primary Polycystic ovaries Diagnosis Amenorrhea- Primary Absence of menstruation Diagnosis 8 weeks gestation of - Primary state, incidental Diagnosis Spontaneous in first trimester- Primary Unspecified spontaneous without mention of complication Diagnosis Missed - Primary Diagnosis Irregular menses Irregular menstrual cycle Reason for Referral Status Reason Specialty Diagnoses / Procedures Referred By Contact Referred To Contact New Request Diagnoses Irregular menses Procedures US TRANSVAGINAL LIMITED Katherine Murdock, DO [address] [place] [address] Status Reason Specialty Diagnoses / Procedures Referred By Contact Referred To Contact Auth Not Needed Ultrasound Diagnoses 8 weeks gestation of Procedures US OB DATING ABDOMINAL < 14WEEKS Bertha Hayden, CHEMICAL LIBRARIAN-COUNTY ASSESSOR [id number] [place] [address] [facility] [address] [place] [phone] Status Reason Specialty Diagnoses / Procedures Referre d By Contact Referred To Contact Closed Ultrasound Diagnoses Irregular menses Procedures US TRANSVAGINAL LIMITED Katherine Murdock, DO [address] [place] [address] [facility] [address] [place] [phone] Summary Purpose Family History No Family History Records Found Relationship Condition Age at Onset Recorded Date/T shanti grandfather Malignant neoplasm of colon 80 Not Specified Malignant neoplasm 80 Advance Directives No Advanced Directives Records Found Advance Directive Response Recorded Date/ Time Living Will No December 29 9:38am Power of Secondary Spanish Teacher No December 29, 2021 9:38am Chief Complaint and Reason for Visit Chief Complaint Amb Documentation NEW OB (NEW PT) LMP 03/30/21 Reason for Visit Supervision of other normal Chief Complaint Amb Documentation NEW OB (NEW PT) LMP 03/30/21 early ob follow up 11w Reason for Visit Supervision of other normal Supervision of other normal Chief Complaint 17WK OB 21 WK OB 25 WK OB ONE HOUR DRAW @ 12:35 28 WK OB/GLUCOSE 30 WK OB SCREENING FOR DIABETES MELLITUS Reason for Visit AMA (advanced matern al age) multigravida 35+ Supervision of high-risk AMA (advanced maternal age) multigravida 35+ Supervision of high-risk AMA (advanced maternal age) multigravida 35+ Supervision of high-risk Abnormal glucose affecting AMA (advanced maternal age) multigravida 35+ Supervision of high-risk Abnormal glucose affecting AMA (advanced maternal age) multigravida 35+ Supervision of high-risk Chief Complaint 17WK OB 21 WK OB 25 WK OB ONE HOUR DRAW @ 12:35 28 WK OB/GLUCOSE 30 WK OB SCREENING FOR DIABETES MELLITUS Gestational diabetes GESTATIONAL DIABETES Reason for Visit AMA (advanced matern al age) multigravida 35+ Supervision of high-risk AMA (advanced maternal age) multigravida 35+ Supervision of high-risk AMA (advanced maternal age) multigravida 35+ Supervision of high-risk Abnormal glucose affecting AMA (advanced maternal age) multigravida 35+ Supervision of high-risk Abnormal glucose affecting AMA (advanced maternal age) multigravida 35+ Supervision of high-risk Gestational diabetes Gestational diabetes mellitus Chief Complaint 21 WK OB 25 WK OB ONE HOUR DRAW @ 12:35 28 WK OB/GLUCOSE 30 WK OB SCREENING FOR DIABETES MELLITUS Gestational diabetes GESTATIONAL DIABETES 32 WK OB 34 WK OB GESTATIONAL DIABETES GROWTH 36 WK OB Reason for Visit AMA (advanced matern al age) multigravida 35+ Supervision of high-risk AMA (advanced maternal age) multigravida 35+ Supervision of high-risk Abnormal glucose affecting AMA (advanced maternal age) multigravida 35+ Supervision of high-risk Abnormal glucose affecting AMA (advanced maternal age) multigravida 35+ Supervision of high-risk Gestational diabetes Gestational diabetes mellitus Abnormal glucose affecting AMA (advanced maternal age) multigravida 35+ Supervision of high-risk Gestational diabetes Abnormal glucose affecting AMA (advanced maternal age) multigravida 35+ Supervision of high-risk Gestational diabetes Abnormal glucose affecting AMA (advanced maternal age) multigravida 35+ Supervision of high-risk Gestational diabetes Chief Complaint 25 WK OB ONE HOUR DRAW @ 12:35 28 WK OB/GLUCOSE 30 WK OB SCREENING FOR DIABETES MELLITUS Gestational diabetes GESTATIONAL DIABETES 32 WK OB 34 WK OB GESTATIONAL DIABETES GROWTH 36 WK OB 37 WK OB 38 WK OB/NST VAG DELIVERY VAG DELIVERY VAG DELIVERY Reason for Visit AMA (advanced matern al age) multigravida 35+ Supervision of high-risk Abnormal glucose affecting AMA (advanced maternal age) multigravida 35+ Supervision of high-risk Abnormal glucose affecting AMA (advanced maternal age) multigravida 35+ Supervision of high-risk Gestational diabetes mellitus Abnormal glucose affecting AMA (advanced maternal age) multigravida 35+ Supervision of high-risk Abnormal glucose affecting AMA (advanced maternal age) multigravida 35+ Supervision of high-risk Abnormal glucose affecting AMA (advanced maternal age) multigravida 35+ Supervision of high-risk Abnormal glucose affecting AMA (advanced maternal age) multigravida 35+ Supervision of high-risk AMA (advanced maternal age) multigravida 35+ Supervision of high-risk Abnormal glucose affecting AMA (advanced maternal age) multigravida 35+ Supervision of high-risk Chief Complaint Admit Date *EST* NOB: LMP 10/12, LELA 07/19 [facility] 2024 10:41am Reason for Visit Admit Date Advanced maternal age (AMA) in December 11, 2024 10:41am History of gestational diabe oli mellitus (GDM) in prior , currentl December 11, 2024 10:41am Hx of one miscarriage December 11 10:41am December 11, 2024 10:41am Supervision of high-risk [facility] 2024 10:41am Threatened December 11, 2024 10:41am Chief Complaint Admit Date *EST* NOB: LMP 10/12, LELA 07/19 [facility] 2024 10:41am rescan December 14, 2024 8: 07am Reason for Visit Admit Date Advanced maternal age (AMA) in December 11, 2024 10:41am History of gestational diabe oli mellitus (GDM) in prior , currentl December 11, 2024 10:41am Hx of one miscarriage December 11 10:41am December 11, 2024 10:41am Supervision of high-risk [facility] 2024 10:41am Threatened December 11, 2024 10:41am Advanced maternal age (AMA) in December 14, 2024 8:07am History of gestational diabe oli mellitus (GDM) in prior , currentl December 14, 2024 8:07am Hx of one miscarriage December 14, 2024 8:07am December 14, 2024 8: 07am Supervision of high-risk [facility] 2024 8:07am Threatened December 14, 2024 8: 07am Chief Complaint Admit Date *EST* NOB: LMP 10/12, LELA 07/19 [facility] 2024 10:41am rescan December 14, 2024 8: 07am Rescan *per December 19, 2024 10 :43am Reason for Visit Admit Date Advanced maternal age (AMA) in December 11, 2024 10:41am History of gestational diabe oli mellitus (GDM) in prior , currentl December 11, 2024 10:41am Hx of one miscarriage December 11 10:41am December 11, 2024 10:41am Supervision of high-risk [facility] 2024 10:41am Threatened December 11, 2024 10:41am Advanced maternal age (AMA) in December 14, 2024 8:07am History of gestational diabe oli mellitus (GDM) in prior , currentl December 14, 2024 8:07am Hx of one miscarriage December 14, 2024 8:07am Missed December 14, 2024 8: 07am December 14, 2024 8: 07am Supervision of high-risk [facility] 2024 8:07am Threatened December 14, 2024 8: 07am Additional Source Comments Reason for Visit (unrecogniz ed section and content) Reason Comments Establish Care Reason Comments Contraception Patient states she h as been trying to get since last August. Patient states she got the first month with last baby. Reason Comments Other Reason Comments Annual Exam pap and breast exam Reason Comments Immunization/Injection Patient would lik e to discuss and start her vaccines today. Reason Comments Annual Exam Patient here for ngoc ual with pap and breast exam. Reason Comments Insurance Reason Comments Immunization/Injection Here for Varicell a vaccine Reason Comments Infertility infertility trying f or 18 months-lmp 12/31/2018 Reason Comments Follow-up follow up for infert ility/results Reason Comments Missed Menses UPT Reason Comments OB reg Reason Comments Follow-up Missed AB, still wit h vaginal Bleeding. Reason Comments Lab Review Status Reason Specialty Diagnoses / Procedures Referre d By Contact Referred To Contact Closed Ultrasound Diagnoses 8 weeks gestation of Procedures US OB DATING ABDOMINAL < 14WEEKS Bertha Hayden, CHEMICAL LIBRARIAN-COUNTY ASSESSOR [id number] [place] [address] [facility] [address] [place] [phone] Reason Comments 12w0d, Status Reason Specialty Diagnoses / Procedures Referre d By Contact Referred To Contact Closed Ultrasound Diagnoses Irregular menses Procedures US TRANSVAGINAL LIMITED Katherine Murdock, [address] [address] [facility] [address] [place] [phone] Reason Comments Colon Cancer Screening Specialty Diagnoses / Procedures Referred By Subhash charles Referred To Contact Gastroenterology Diagnoses Family history of colon cancer Pretty Luu, CHEMICAL LIBRARIAN-COUNTY ASSESSOR [address] [place] [address] Catalino Linda Jr., DO [address] [facility] [place] [address] Referral ID Status Reason Start Date Expiration Date V isits Requested Visits Authorized [id number] Pending Review 03/13/2021 04/07/2022 1 1 INFORMATION SOURCE (unrecogn ized section and content) DATE CREATED AUTHOR 01/23/2020 [facility] DATE CREATED AUTHOR AUTHOR'S ORGANIZ ATION [facility] DATE CREATED AUTHOR AUTHOR'S ORGANIZ ATION 01/07/2025 [facility] Addendum Note - Maryellen Guan LPN - 03/05/2020 1:30 PM EST Miscellaneous Notes (unrecog nized section and content) Addended by: MARYELLEN GUAN on: 03/05/2020 02:25 PM Modules accepted: Orders documented in this encounter Care Teams (unrecognized sec tion and content) Digital Photo Printer Relationship Specialty Start Date End Date Pretty Luu, LYUDMILA-COUNTY ASSESSOR PCP - General Certified Nurse Practitioner 05/25/18 Team Status: Active Member Role/Relationship Status Dates No Primary Care Physician Primary care physician Activ e Team Status: Inactive Member Role/Relationship Status Dates No Primary Care Physician Primary care physician Activ e Start: December 11, 2024 End: December 11, 2024 No Primary Care Physician Referring Provider Active Start: December 11, 2024 End: December 11, 2024 Dr. Patricia Camarillo MD Attending physician Active Start: December 11, 2024 End: December 11, 2024 Team Status: Active Member Role/Relationship Status Dates No Primary Care Physician Primary care physician Activ e Start: December 11, 2024 Dr. Patricia Camarillo MD Attending physician Active Start: December 11, 2024 Dr. Patricia Camarillo MD Referring Provider Active Start: December 11, 2024 Team Status: Inactive Member Role/Relationship Status Dates No Primary Care Physician Primary care physician Activ e Start: December 14, 2024 End: December 14, 2024 No Primary Care Physician Referring Provider Active Start: December 14, 2024 End: December 14, 2024 Dr. Patricia Camarillo MD Attending physician Active Start: December 14, 2024 End: December 14, 2024 Team Status: Inactive Member Role/Relationship Status Dates No Primary Care Physician Primary care physician Activ e Start: December 19, 2024 End: December 19, 2024 No Primary Care Physician Referring Provider Active Start: December 19, 2024 End: December 19, 2024 Dr. Patricia Camarillo MD Attending physician Active Start: December 19, 2024 End: December 19, 2024 Goals (unrecognized section and content) Type Care Experience plan delivery by 39-40Labor Preferences-CB/BF classes: nolabor support person: Darrelllabor intervention preferences: []pain management options preferred: open to epiduralcut cord/dad catch: yesbreastfeeding: yesPP control planned: discusseddiscussed possible routes of delivery and associated risks: []special requests: [] Care Experience Labor Preferences-CB /BF classes: []labor support person: []labor intervention preferences: []pain management options preferred: []cut cord/dad catch: []: []PP control planned: []discussed possible routes of delivery and associated risks: []special requests: [] FOR RECORDS PERTAINING TO PATIENTS WHO ARE OR HAVE BEEN ENROLLED IN A CHEMICAL DEPENDENCY/SUBSTANCEABUSE PROGRAM, SOME INFORMATION MAY BE OMITTED. This clinical summary was aggregated from multiple sources. Caution should be exercised in using it in the provision of clinical care. This summary normalizes information from multiple sources, and as a consequence, information in this document may materially change the coding, format and clinical context of patient data. In addition, data may be omitted in some cases. CLINICAL DECISIONS SHOULD BE BASED ON THE PRIMARY CLINICAL RECORDS. [email or web address] [place] [facility] provides no warranty or guarantee of the accuracy [phone] completeness of information in this [id number]
[2025-01-11 11:07] LABS: Anion Gap 10 (5-15); BUN 16 mg/dL (4-19); BUN/Creat Ratio 19.9 RATIO (10-20); Calcium,Total 9.8 mg/dL (7.6-11.0); Carbon Dioxide 26.0 mmol/L (21.0-32.0); Chloride 103 mmol/L (98-108); Cholesterol 202 mg/dL (<=200); Glucose 97 mg/dL (70-99); Low Density Lipoprotein Calc. 103 mg/dL; Potassium 3.9 mmol/L (3.3-5.1); Triglycerides 235 mg/dL; Very Low Density Lipoprotein 47 mg/dL (5-40); cholesterol:hdl ratio screen 3.40
== END | disposition home or self-care (01) ==
LOC: MTLAB 09:09
PROVIDERS: PCP Family Medicine; Referring Provider Family Medicine; Visit Provider Family Medicine
DX: Z13.220 Encounter for screening for lipoid disorders (principal); E28.2 Polycystic ovarian syndrome; Z13.29 Encounter for screening for other suspected endocrine disorder; Z13.1 Encounter for screening for diabetes mellitus
CPT/HCPCS: 36415; 80048; 80061; 83036; 84443